=== PATIENT | female | born 1955 | race Caucasian/White ===

== ENCOUNTER 2023-01-07 23:58 | Inpatient (IN) | payer MEDICARE, MEDICAID, SELFPAY ==
[2023-01-08 00:40] VITALS: BP 160/72; PULSE 79; RESP 18; TEMP 36.3; O2SAT 99
[2023-01-08 01:27] VITALS: BMI 22.3
--- NOTE | 2023-01-08 01:28 | PC.ADMIT ---
PT is a female admitted to on CV from [place] at midnight due to insomnia, anxiety, and hallucinations. PT uncooperative and initially unwilling to sign CV, PT eventually signed CV but did cross out some words on the form. PT states,' I am not mentally ill.' 'I am not taking any medications.' PT is reported to have not taken her risperidone for about a year. Per report PT presented with paranoia stating that the FBI is out to get her. She is reported to have hallucinations of crying babies and other loud sounds. PT currently denies SI/HI/AH/VH. PT states she feels safe on unit. PT currently has a therapist., but no psychiatrist. PT complains of somatic symptoms, such as cough. PT is declining an EKG at this time. PT refused to sign legals and do a safety tool at this time. PT is on 15 minute safety checks and treatment plan started.
[2023-01-08 08:00] VITALS: BP 115/68; PULSE 90; RESP 18; TEMP 36; O2SAT 96
--- NOTE | 2023-01-08 10:41 | HO.PSYADMNOT ---
HPI Date of Service: 01/08/23 Chief Complaint: F29 unspecified psychosis Sources of Information: patient interviewed, chart reviewed and crisis/core team assessment reviewed HPI Subjective Notes: Baron Warning and Conditional Voluntary Narrative: Patient is a 67-year-old female with history of schizophrenia, history of PE who presents after her brother took patient to ED for worsening paranoid delusions and AVH in the face of increased psychosocial stressors including her father's recent . Patient was hospitalized 10 years ago and started on Risperdal and has been functioning well, living on her own in the community since then; she came off Risperdal about a year and a half ago and continued to remain stable. However soon after her father , patient started becoming paranoid and developed AVH; told ED providers that the FBI was after her, complaining of demon attacks, demons from they apartment complex knocking on her windows and doors, coming into her home at night and flashing lights; patient ended up going to a hotel to stay because she was scared; says demons were demanding she leave her apartment and saying things like you bitch.... Going to rape you... Be quiet... Patient reported to the ED that she woke up and her house and found her apartment in disarray with broken wine glasses and dishes so she called her brother who called 911. Patient's brother reported to emergency room that the housing authority also called him as they were concerned about her behavior. Patient feels that she is fine and wants to be discharged home. She did not want to discuss the conversations that she had with ED provider or discuss her reports of AH or paranoid delusions. Patient says she used to be on Risperdal as a mood stabilizer but that it caused tardive dyskinesia, that it made her feet move all around and caused her to grind her teeth. She said she came off it about a year and a half ago and she has been fine since. She says she lives alone in her own apartment; she has someone do her shopping but otherwise cooks for herself, drives herself to local appointments, manages her own finances. Patient does not want medication. Patient's sister called dialysis social worker and reported that she has been recently very dysregulated, talking about demons and that these are the same behaviors that resulted in her psychiatric admission 10 years ago, which resulted in 10 month stay at [facility] in [place] Since patient was currently presenting as organized, Dog Food Dough Mixer discussed the possibility of discharge if patient were willing to get back on medication and consent to having team call her brother for collateral and a ride to a safe location; patient refused. Later on, patient was irate that she was not being discharged saying that administrative underwriter had told her she would be discharged today; she was unable to accurately recount the details of the earlier conversation and insisted that administrative underwriter was lying. 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 apartment Supportive family Father recently 12/11/2022 Substance History: denies Trauma History: Deferred Diagnostics Vital Signs (24Hr): Vital Signs - 24 hr 01/08/23 00:40 01/08/23 08:00 Temperature 97.4 F 96.8 F Pulse Rate 79 90 Respiratory Rate 18 18 Blood Pressure 160/72 H 115/68 Pulse Oximetry 99 96 Oxygen Delivery Method Room Air Room Air BMI result Body Mass Index 22.3 Meds/Allergies Meds Home Medications Medication Instructions Recorded Confirmed Type lorazepam 0.5 mg tablet (Ativan) 0.5 mg PO BID PRN Anxiety 01/08/23 01/08/23 History olanzapine 5 mg disintegrating 5 mg PO BID 01/08/23 01/08/23 History tablet Allergies Allergies Allergy/AdvReac Type Severity Reaction Status Date / Time amoxicillin Allergy Unknown Verified 01/08/23 03:36 codeine Allergy Unknown Verified 01/08/23 03:36 diphenhydramine Allergy Unknown Verified 01/08/23 03:36 [From Benadryl] Mental Status Exam Mental Status Exam Narrative: Pt is alert and oriented; behavior is irritable but cooperative; patient is not in distress; dressed in casual attire, well groomed; mood is described as irritable and affect congruent; eye contact appropriate; Speech is normal rate, volume and prosody and not pressured; no psychomotor agitation/retardation present; thought process is organized and goal directed; Thought content is on discharge; otherwise pertinent to relevant topics; did not express any paranoid, delusional thinking; denies any SI/HI. Denies AVH. Patients insight and judgment are impaired, but not sure to what degree. Assessment & Plan Assessment & Plan (1) Schizophrenia: Status: Acute Code(s): F20.9 - Schizophrenia, unspecified Plan Patient is a 67-year-old female with history of schizophrenia, history of PE (2019) who presents after her brother took patient to ED for worsening paranoid delusions and AVH in the face of increased psychosocial stressors including her father's recent . Impression: pt has hx of psychotic disorder and [facility]; however, she's been stable for 10 years on Risperdal (and possibly remained so after she reportedly discontinued it a year or so ago). It seems that the emotional stress of her fathers has triggered return of psychotic symptoms. ED provider and collateral from sister report that patient for past weeks and days patient has been dysregulated by paranoid delusions and AH which are interfering in her life. However, currently on the unit, she is presenting as organized in both speech and behavior, denying any AVH or paranoid thinking and not expressing any delusional ideation. Given patient's history, ED report, her brothers and sisters concern, and refusal to restart antipsychotic medication, will hold onto patient for now to better assess her safety and ability to function in the community. Plan: CV; patient later sign 3 day notice Eliquis 2.5 mg b.i.d., home medication; patient told administrative underwriter that she is indeed on this because she had lung issue Denies that she is on omeprazole or any other medication; does not want to discuss her medical history Will need to gather collateral to assess patient's safety Reviewed labs from [place] ED: CBC, lytes, BUN/creatinine, calcium, TSH WNL Negative COVID UA with elevated leukocyte Estrace however negative nitrate; no report of urinary symptoms; refused to have admission physical Patient educated on: diagnosis and medication risk/benefits Informed Consent: does not understand Reason for continued inpatient stay Substantial Risk for: inability to function and rapid decompensation Statement Statement: I have reviewed the history and physical and performed a pertinent examination on my patient. No changes have occurred unless specified. If the History and Physical was not performed prior to admission, the Hospitalist's service will be consulted for completing the admission physical. Time Spent With Patient Time: Total time managing care of this patient today ____ minutes.
--- NOTE | 2023-01-08 13:26 | PM.EVENT ---
Event Note Date of Service: 01/08/23 Event Note: 67 yo F admitted to . Medical consult requested for routine medical H&P as the patient is transferred from outside facility. Pt seen ambulating in the hallway. Introduced myself and my role in her care. The patient states that she has had a recent medical visit and is not interested in speaking with me at this time because its not important. Please re-consult should things change. Time Spent With Patient Time: Total time managing care of this patient today ____ minutes.
--- NOTE | 2023-01-08 18:34 | PC.NURSE ---
Patient given urine collection container.
[2023-01-08] MEDS: LORazepam 1 MG TABLET PO (19:02)
[2023-01-08 20:05] VITALS: BP 129/69; PULSE 85; TEMP 36.6; O2SAT 98
--- NOTE | 2023-01-08 23:03 | PC.NURSE ---
Patient refused Apixiban and Risperdal at . She said she doesn't need to take them. She also refused to provide a urine specimen, because she provided one at [facility] yesterday.
[2023-01-09 09:00] VITALS: BP 120/85; PULSE 76; RESP 16; TEMP 36.3; O2SAT 96
[2023-01-09 15:55] VITALS: BP 139/67; PULSE 71; TEMP 36.3
--- NOTE | 2023-01-09 17:28 | P.PNPSI_ITS ---
Subjective Subjective Date of Service: 01/09/23 Reason For Visit: F29 unspecified psychosis Interim History: Met with patient; discussed with team Patient irritable, demanding to be discharged. She says she does not have a mental illness...does not have a psychiatric illness and she does not need medication... Marriage And Family Teacher referenced comments she made to staff at the [facility] however patient said that that is all lies, she never said that and that it is untrue. She says she was never in a state psychiatric hospital but was only in a hospital for a medical reason the details of which is none of this movie writer's business... Patient continues to insist that movie writer promised her discharge yesterday and is unable to tolerate any explanation otherwise. Patient says she does not want to say anymore but wants an ip attorney. -Patient refused Eliquis. Marriage And Family Teacher explained to patient that her outpatient provider Dr. Sherri Briones's call the unit, spoke with movie writer and communicated that patient is supposed to remain on Eliquis to avoid further blood clots/PE (patient has history of pulmonary embolisms 2019). Patient said that she does not accept this and she will have to hear from her own doctor. -gave patient phone number for enquiring ip attorney; social worker psychiatric also called amado pascual enquiring about expediting patient has access to an ip attorney Patient has a 3 day notice wanting discharge. In order to assess patient's safety and ability to return to the community, movie writer obtained collateral from patient's sister Danielle, who knows patient is on the psych unit at [facility] and called the social worker psychiatric yesterday to provide information. Marriage And Family Teacher did not give out any information. Danielle reports that 10 years ago patient severely decompensated and threatened to kill her and their parents, which resulted in [facility]. Patient was started on Risperdal and afterwards did quite well however was never able to work again and in fact has not been working since the , on disability instead. Danielle reports that they have been concerned about patient for several months, feeling that she's been decompensated little by little and that she is exhibiting the very same behaviors that led to her hospitalization 10 years ago. She says that the past few weeks, patient home health aide and friend have been reaching out to sister, saying that something is willing different about patient and that she needs help, afraid she might hurt herself. Danielle reports that at their father's wake, she went to her brother's car and started screaming; she said her father was trying to pull her out of her body to join him. She corroborates with the report from [facility] it patient has been expressing paranoid delusions that satanic people, demons are after her that they are shooting a pathway to her neighbors and healing her neighbors but not her... Danielle says patient for currently calls her on the phone screaming over and over; she is insisting that she be relocated, that her sister get the government to relocate her because she is not safe in her apartment, someone is there trying to hurt her, she is hearing babies screaming... And is unable to be redirected or accept Danielle's answers. Danielle says patient was very concerned that her brother was a zombie; said the healthcare person the comes to her house was an imposter... She said that patient has been saying she plans to move in with her mother. Danielle is very fearful of this since patient threatened to kill her mother 10 years ago when she had similarly decompensated and she said that there is no way she will allow patient to live with their mother. Sister says that patient herself called 911 a few days before her brother brought her to the emergency room, telling the police that she was being attacked in her house by satanic people and that there were flashing a blue light house. Sister reports that patient frequently complains of numerous medical illnesses that are unsubstantiated by medical exam Danielle reports that her brother Parker, the one who drove her to the emergency room this past week is the healthcare proxy. Mental Status Exam Mental Status Exam Narrative: Pt is alert and oriented; behavior is irritable but cooperative; patient is not in distress; dressed in casual attire, adequately groomed; mood is described as irritable and affect congruent; eye contact appropriate; Speech is normal rate, volume and prosody and not pressured; no psychomotor agitation/retardation present; thought process is organized and goal directed; Thought content is on discharge; otherwise pertinent to relevant topics; did not express any paranoid, delusional thinking; denies any SI/HI. Denies AVH. Patients insight and judgment are impaired Diagnostics Vital Signs (24Hr): Vital Signs - 24 hr 01/08/23 20:05 01/09/23 09:00 Temperature 97.9 F 97.3 F Pulse Rate 85 76 Respiratory Rate 16 Blood Pressure 129/69 120/85 Pulse Oximetry 98 96 Oxygen Delivery Method Room Air Room Air BMI result Body Mass Index 22.3 Medications Medications Current Medications Acetaminophen (Acetaminophen 325 Mg Tablet) 650 mg PO Q6H PRN PRN Reason: Headache/Pain Mild Scale (1-3) Al Hydroxide/Mg Hydroxide (Magnesium Hydrox/Alum Hydrox 30 Ml Oral.Susp) 30 ml PO Q6H PRN PRN Reason: Heartburn/Nausea Apixaban (Apixaban 2.5 Mg Tablet) 2.5 mg PO BID MARITA Last Admin: 01/09/23 08:32 Dose: Not Given Benzocaine (Throat Lozenge, Medicated Lozenge) 1 lozenge MUCOUS MEM Q2H PRN PRN Reason: Sore Throat Lorazepam (Lorazepam 1 Mg Tablet) 1 mg PO BID PRN PRN Reason: anxiety/restlessness Last Admin: 01/08/23 19:02 Dose: 1 mg Magnesium Hydroxide (Milk Of Magnesia 30 Ml Oral.Susp) 30 ml PO DAILY PRN PRN Reason: Constipation Trazodone HCl (Trazodone Hcl 50 Mg Tablet) 50 mg PO BEDTIME MRX1 PRN PRN Reason: Insomnia Allergies Allergies Allergy/AdvReac Type Severity Reaction Status Date / Time amoxicillin Allergy Unknown Verified 01/08/23 03:36 codeine Allergy Unknown Verified 01/08/23 03:36 diphenhydramine Allergy Unknown Verified 01/08/23 03:36 [From Benadryl] Assessment & Plan Assessment & Plan (1) Schizophrenia: Status: Acute Code(s): F20.9 - Schizophrenia, unspecified Plan Patient is a 67-year-old female with history of schizophrenia, history of PE (2019) who presents after her brother took patient to ED for worsening paranoid delusions and AVH in the face of increased psychosocial stressors including her father's recent . Impression: pt has hx of psychotic disorder and admission to [facility]; however, she's been stable for 10 years on Risperdal (and possibly remained so after she reportedly discontinued it a year or so ago). It seems that the emotional stress of her fathers has triggered return of psychotic symptoms. ED provider and collateral from sister report that patient for past weeks and days patient has been dysregulated by paranoid delusions and AH which are interfering in her life. However, currently on the unit, she is presenting as organized in both speech and behavior, denying any AVH or paranoid thinking and not expressing any delusional ideation. Given patient's history, ED report, her brothers and sisters concern, and refusal to restart antipsychotic medication, will hold onto patient for now to better assess her safety and ability to function in the community. Hospital course: 01/09 remains without any insight, is irritable and wants discharge; she denies that she ever told ED staff anything about AVH, paranoid thoughts, demons; denies that any of the events reported by ED staff or sister are true. Says she does not have any history psychiatric illness. Patient refused Eliquis Denies that she is on omeprazole or any other medication; does not want to discuss her medical history Plan: 3 day notice Continue Eliquis 2.5 mg b.i.d., movie writer contacted patient's outpatient prescriber Dr. Nelda Rodriguez [employer] who communicated to movie writer that patient is supposed to remain on Eliquis Will need to gather collateral to assess patient's safety Reviewed labs from [facility]: CBC, lytes, BUN/creatinine, calcium, TSH WNL Negative COVID UA with elevated leukocyte Estrace however negative nitrate; no report of urinary symptoms; refused to have admission physical COLLATERAL: Patient has a 3 day notice wanting discharge. In order to assess patient's safety and ability to return to the community, movie writer obtained collateral from patient's sister Danielle, who knows patient is on the psych unit at [facility] and called the social worker psychiatric yesterday to provide information. Marriage And Family Teacher did not give out any information. Danielle reports that 10 years ago patient severely decompensated and threatened to kill her and their parents, which resulted in psychiatric hospitalization at a [facility]. Patient was started on Risperdal and afterwards did quite well however was never able to work again and in fact has not been working since the , on disability instead. Danielle reports that they have been concerned about patient for several months, feeling that she's been decompensated little by little and that she is exhibiting the very same behaviors that led to her hospitalization 10 years ago. She says that the past few weeks, patient home health aide and friend have been reaching out to sister, saying that something is willing different about patient and that she needs help, afraid she might hurt herself. Danielle reports that at their father's wake, she went to her brother's car and started screaming; she said her father was trying to pull her out of her body to join him. She corroborates with the report from [facility] it patient has been expressing paranoid delusions that satanic people, demons are after her that they are shooting a pathway to her neighbors and healing her neighbors but not her... Danielle says patient for currently calls her on the phone screaming over and over; she is insisting that she be relocated, that her sister get the government to relocate her because she is not safe in her apartment, someone is there trying to hurt her, she is hearing babies screaming... And is unable to be redirected or accept Danielle's answers. Danielle says patient was very concerned that her brother was a zombie; said the healthcare person the comes to her house was an imposter... She said that patient has been saying she plans to move in with her mother. Danielle is very fearful of this since patient threatened to kill her mother 10 years ago when she had similarly decompensated and she said that there is no way she will allow patient to live with their mother. Danielle reports that her brother Parker, the one who drove her to the emergency room this past week is the healthcare proxy. Patient educated on: diagnosis and medication risk/benefits Informed Consent: does not understand and further education needed Reason for continued inpatient stay Substantial Risk for: inability to function Time Spent With Patient Time: Total time managing care of this patient today ____ minutes.
[2023-01-09] MEDS: LORazepam 1 MG TABLET PO (19:58)
[2023-01-10 08:35] VITALS: BP 119/69; PULSE 73; RESP 18; O2SAT 100
--- NOTE | 2023-01-10 10:02 | HO.PSYCHPN ---
Subjective Subjective Date of Service: 01/10/23 Reason For Visit: F29 unspecified psychosis Interim History: Met with patient; discussed with team No change in patient's presentation and she continues to demand discharge. However, she was willing to sit down and shared with junior copywriter her version of events prior to this admission. Patient said that her neck was hurting and she was choking and wanted to go to the emergency room; thus her brother brought her there. She said she wanted an x-ray but none was taken and the next thing she knew she went to [facility] [likely behavioral health pod in the ED]. patient said she talked to a social service manager named Tabitha and shared what is been going on with her self over the past year. She said another staff came in and told her that you are here because you were threatening babies... which she denied. She said this same staff person came in the next day to talk with her and she question him about his assertion that she was threatening babies... but on this day, patient reports he said that he never said that; patient believes that he was purposely lying. Patient said that she then talk to a psychiatrist whom she said was not really a psychiatrist... She said for no reason at all she was given a Haldol injection into her leg and denies that she was anything other than calm. She said the next thing she knew, she was being transported to [facility] for admission. Patient asked junior copywriter to explain what some of the concerns were regarding her safety in the community. Landscaping And Groundskeeping Laborer shared again her family's and ED provider's report that she was feeling very threatened by demons which resulted in her leaving her apartment to go to a hotel. Patient denies that she has ever been worried about demons or spirits of any kind and that she never said any of those things. She acknowledged she went to a hotel but says it was because there were chemicals coming into her apartment from the apartment below causing a chemical smell which she wanted to avoid. She says upon return the chemical smell was gone. Patient's sister had called and given information to team. Patient however said she does not believe that anyone on her team ever talk to her sister and that junior copywriter is lying about it. That said, junior copywriter had also mentioned that her sister was concerned because her current behaviors are similar to the ones she was demonstrating 10 years ago when she was admitted to the [facility]. Patient again said that that admission had nothing to due with a psychiatric illness but that what happened 10 years ago should have nothing to do with what is going on now. Landscaping And Groundskeeping Laborer again broached the topic of Eliquis; patient continued to refuse to take it saying she did not trust this junior copywriter had actually talked to staff at her outpatient clinic regarding this medication. Landscaping And Groundskeeping Laborer expressed concern that she has been off his medication, concern for DVTs and potentially PE which she has had the past. Landscaping And Groundskeeping Laborer asked patient several times if she herself would be willing to call her outpatient provider and inquire on her own, whether not she should continue taking it. Patient said the script was never renewed so she assumed she was not supposed to continue taking it and refuse to call the clinic. Landscaping And Groundskeeping Laborer had reiterated that talking with junior copywriter is totally voluntary which patient said I know... She then asked if junior copywriter is going to discharge her today and when told no, patient said she is not saying any more and that junior copywriter can talk to her associate attorney. Mental Status Exam Mental Status Exam Narrative: Pt is alert and oriented; behavior is irritable but cooperative; patient is not in distress; dressed in casual attire, adequately groomed; mood is described as irritable and affect congruent; eye contact appropriate; Speech is normal rate, volume and prosody and not pressured; no psychomotor agitation/retardation present; thought process is organized and goal directed; Thought content is on discharge; otherwise pertinent to relevant topics; did not express any paranoid, delusional thinking; denies any SI/HI. Denies AVH. Patients insight and judgment are impaired Diagnostics Vital Signs (24Hr): Vital Signs - 24 hr 01/09/23 15:55 01/10/23 08:35 Temperature 97.3 F Pulse Rate 71 73 Respiratory Rate 18 Blood Pressure 139/67 119/69 Pulse Oximetry 100 BMI result Body Mass Index 22.3 Medications Medications Current Medications Acetaminophen (Acetaminophen 325 Mg Tablet) 650 mg PO Q6H PRN PRN Reason: Headache/Pain Mild Scale (1-3) Al Hydroxide/Mg Hydroxide (Magnesium Hydrox/Alum Hydrox 30 Ml Oral.Susp) 30 ml PO Q6H PRN PRN Reason: Heartburn/Nausea Apixaban (Apixaban 2.5 Mg Tablet) 2.5 mg PO BID MARITA Last Admin: 01/10/23 08:42 Dose: Not Given Benzocaine (Throat Lozenge, Medicated Lozenge) 1 lozenge MUCOUS MEM Q2H PRN PRN Reason: Sore Throat Lorazepam (Lorazepam 1 Mg Tablet) 1 mg PO BID PRN PRN Reason: anxiety/restlessness Last Admin: 01/09/23 19:58 Dose: 1 mg Magnesium Hydroxide (Milk Of Magnesia 30 Ml Oral.Susp) 30 ml PO DAILY PRN PRN Reason: Constipation Trazodone HCl (Trazodone Hcl 50 Mg Tablet) 50 mg PO BEDTIME MRX1 PRN PRN Reason: Insomnia Allergies Allergies Allergy/AdvReac Type Severity Reaction Status Date / Time amoxicillin Allergy Unknown Verified 01/08/23 03:36 codeine Allergy Unknown Verified 01/08/23 03:36 diphenhydramine Allergy Unknown Verified 01/08/23 03:36 [From Yoselyn] Assessment & Plan Assessment & Plan (1) Schizophrenia: Status: Acute Code(s): F20.9 - Schizophrenia, unspecified Plan HPI: Patient is a 67-year-old female with history of schizophrenia, history of PE (2019) who presents after her brother took patient to ED for worsening paranoid delusions and AVH in the face of increased psychosocial stressors including her father's recent . Impression: pt has hx of psychotic disorder and admission to [facility]; however, she's been stable for 10 years on Risperdal (and possibly remained so after she reportedly discontinued it a year or so ago). It seems that the emotional stress of her fathers has triggered return of psychotic symptoms. ED provider and collateral from sister report that patient for past weeks and days patient has been dysregulated by paranoid delusions and AH which are interfering in her life. However, currently on the unit, she is presenting as organized in both speech and behavior, denying any AVH or paranoid thinking and not expressing any delusional ideation. Given patient's history, ED report, her brothers and sisters concern, and refusal to restart antipsychotic medication, will hold onto patient for now to better assess her safety and ability to function in the community. -Reviewed labs from [facility]: CBC, lytes, BUN/creatinine, calcium, TSH WNL; Negative COVID; UA with elevated leukocyte Estrace however negative nitrate; no report of urinary symptoms; refused to have admission physical Hospital course: 01/09 remains without any insight, is irritable and wants discharge; she denies that she ever told ED staff anything about AVH, paranoid thoughts, demons; denies that any of the events reported by ED staff or sister are true. Says she does not have any history psychiatric illness. Patient refused Eliquis Denies that she is on omeprazole or any other medication; does not want to discuss her medical history 01/10 no change in presentation; remains without insight; denies all collateral reports. Refusing Eliquis despite junior copywriter's concern explanation of risks of not taking Eliquis Plan: -3 day notice -q15 min checks -Continue Eliquis 2.5 mg b.i.d., junior copywriter contacted patient's outpatient prescriber Dr. Nelda Rodriguez [facility] who communicated to junior copywriter that patient is supposed to remain on Eliquis -pt adamantly refuses antipsychotic so none ordered to avoid further irritating patient -will contact HCP (brother Parker) to assess for safety; likely to invoke HCP as patient is currently making unsafe decisions, such as refusing Eliquis as patient is reportedly suffering from paranoid delusions and subsequently dysregulated in the community; patient's sister said these are the exact behaviors that patient exhibited when she was committed 10 years ago, during which time she made threats to kill her sister and her parents. Patient told sister (and this junior copywriter) that she was planning to go stay at her mother's; sister is very afraid for their mothers safety and said if patient is discharged she will immediately pursue a restraining order COLLATERAL: Patient has a 3 day notice wanting discharge. In order to assess patient's safety and ability to return to the community, junior copywriter obtained collateral from patient's sister Danielle, who knows patient is on the psych unit at [facility] and called the social service manager yesterday to provide information. Landscaping And Groundskeeping Laborer did not give out any information. Danielle reports that 10 years ago patient severely decompensated and threatened to kill her and their parents, which resulted in psychiatric hospitalization at a [facility] hospital. Patient was started on Risperdal and afterwards did quite well however was never able to work again and in fact has not been working since the , on disability instead. Danielle reports that they have been concerned about patient for several months, feeling that she's been decompensated little by little and that she is exhibiting the very same behaviors that led to her hospitalization 10 years ago. She says that the past few weeks, patient home health aide and friend have been reaching out to sister, saying that something is willing different about patient and that she needs help, afraid she might hurt herself. Danielle reports that at their father's wake, she went to her brother's car and started screaming; she said her father was trying to pull her out of her body to join him. She corroborates with the report from [facility] it patient has been expressing paranoid delusions that satanic people, demons are after her that they are shooting a pathway to her neighbors and healing her neighbors but not her... Danielle says patient for currently calls her on the phone screaming over and over; she is insisting that she be relocated, that her sister get the government to relocate her because she is not safe in her apartment, someone is there trying to hurt her, she is hearing babies screaming... And is unable to be redirected or accept Danielle's answers. Danielle says patient was very concerned that her brother was a zombie; said the healthcare person the comes to her house was an imposter... She said that patient has been saying she plans to move in with her mother. Danielle is very fearful of this since patient threatened to kill her mother 10 years ago when she had similarly decompensated and she said that there is no way she will allow patient to live with their mother. Danielle reports that her brother Parker, the one who drove her to the emergency room this past week is the healthcare proxy. Patient educated on: diagnosis, medication risk/benefits and medical condition Informed Consent: does not understand Reason for continued inpatient stay Substantial Risk for: harm to self and inability to function Time Spent With Patient Time: Total time managing care of this patient today ____ minutes.
[2023-01-10 19:25] VITALS: BP 135/63; PULSE 70; TEMP 35.7
[2023-01-10] MEDS: LORazepam 1 MG TABLET PO (19:37)
[2023-01-11 08:20] VITALS: BP 123/64; PULSE 74; RESP 18; TEMP 36; O2SAT 98
--- NOTE | 2023-01-11 14:07 | PC.NURSE ---
Pt continues to refuse all care and medications from the unit, stating I am not listening to any of you here, I am only listening to what my real doctor says I need.
[2023-01-11 18:00] VITALS: RESP 16
--- NOTE | 2023-01-11 18:23 | HO.PSYCHPN ---
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 States she has her own providers and is not interested in other's consultation. Education provided regarding appointment of an trust and estates attorney. Expresses anger, tearfulness. Refusing of treatment, medicine, I have no trust in this system. Asks to be discharge. Engages well in discussion. Medication Compliance: No Side effects from medications: No Attending Groups: No Review of Systems Acute medical concerns: No Medical Review of Systems: unchanged Mental Status Exam Mental Status Exam Patient Appearance: Fatigued Patient Orientation: Person, Place, Time and Situation Level of Consciousness: Alert Patient Behavior: Talkative and Good Eye Contact Mood Description: Depressed, Hostile, Anxious and Apprehensive Affect Description: Flat Patient Cognition Impaired: No Ability to Follow Directions: Fair Speech Pattern: Spontaneous Speech Memory Description: Intact Hallucinations: None Delusions: Not Present Thought Process: Rumination Thought Content: positive for Goal Oriented, positive for Suicidal Ideation (denies) and positive for Homicidal Ideation (denies) Depressive Symptoms: Increased Irritability Judgement: Poor Diagnostics Vital Signs (24Hr): Vital Signs - 24 hr 01/10/23 19:25 01/11/23 08:20 Temperature 96.3 F L 96.8 F Pulse Rate 70 74 Respiratory Rate 18 Blood Pressure 135/63 123/64 Pulse Oximetry 98 Oxygen Delivery Method Room Air BMI result Body Mass Index 22.3 Medications Medications Current Medications Acetaminophen (Acetaminophen 325 Mg Tablet) 650 mg PO Q6H PRN PRN Reason: Headache/Pain Mild Scale (1-3) Al Hydroxide/Mg Hydroxide (Magnesium Hydrox/Alum Hydrox 30 Ml Oral.Susp) 30 ml PO Q6H PRN PRN Reason: Heartburn/Nausea Apixaban (Apixaban 2.5 Mg Tablet) 2.5 mg PO BID MARITA Last Admin: 01/11/23 08:23 Dose: Not Given Benzocaine (Throat Lozenge, Medicated Lozenge) 1 lozenge MUCOUS MEM Q2H PRN PRN Reason: Sore Throat Lorazepam (Lorazepam 1 Mg Tablet) 1 mg PO BID PRN PRN Reason: anxiety/restlessness Last Admin: 01/10/23 19:37 Dose: 1 mg Magnesium Hydroxide (Milk Of Magnesia 30 Ml Oral.Susp) 30 ml PO DAILY PRN PRN Reason: Constipation Trazodone HCl (Trazodone Hcl 50 Mg Tablet) 50 mg PO BEDTIME MRX1 PRN PRN Reason: Insomnia Allergies Allergies Allergy/AdvReac Type Severity Reaction Status Date / Time amoxicillin Allergy Unknown Verified 01/08/23 03:36 codeine Allergy Unknown Verified 01/08/23 03:36 diphenhydramine Allergy Unknown Verified 01/08/23 03:36 [From Benadryl] Assessment & Plan Assessment & Plan (1) Schizophrenia: Status: Acute Code(s): F20.9 - Schizophrenia, unspecified Plan HPI: Patient is a 67-year-old female with history of schizophrenia, history of PE (2018) who presents after her brother took patient to ED for worsening paranoid delusions and AVH in the face of increased psychosocial stressors including her father's recent . Impression: pt has hx of psychotic disorder and admission to [facility]; however, she's been stable for 10 years on Risperdal (and possibly remained so after she reportedly discontinued it a year or so ago). It seems that the emotional stress of her fathers has triggered return of psychotic symptoms. ED provider and collateral from sister report that patient for past weeks and days patient has been dysregulated by paranoid delusions and AH which are interfering in her life. However, currently on the unit, she is presenting as organized in both speech and behavior, denying any AVH or paranoid thinking and not expressing any delusional ideation. Given patient's history, ED report, her brothers and sisters concern, and refusal to restart antipsychotic medication, will hold onto patient for now to better assess her safety and ability to function in the community. -Reviewed labs from [facility]: CBC, lytes, BUN/creatinine, calcium, TSH WNL; Negative COVID; UA with elevated leukocyte Estrace however negative nitrate; no report of urinary symptoms; refused to have admission physical Hospital course: 01/09 remains without any insight, is irritable and wants discharge; she denies that she ever told ED staff anything about AVH, paranoid thoughts, demons; denies that any of the events reported by ED staff or sister are true. Says she does not have any history psychiatric illness. Patient refused Eliquis Denies that she is on omeprazole or any other medication; does not want to discuss her medical history 01/10 no change in presentation; remains without insight; denies all collateral reports. Refusing Eliquis despite real estate underwriter's concern explanation of risks of not taking Eliquis 01/11 Continue current plan of care Plan: -3 day notice -q15 min checks -Continue Eliquis 2.5 mg b.i.d., real estate underwriter contacted patient's outpatient prescriber Dr. Nelda Rodriguez [facility] who communicated to real estate underwriter that patient is supposed to remain on Eliquis -pt adamantly refuses antipsychotic so none ordered to avoid further irritating patient -will contact HCP (brother Parker) to assess for safety; likely to invoke HCP as patient is currently making unsafe decisions, such as refusing Eliquis as patient is reportedly suffering from paranoid delusions and subsequently dysregulated in the community; patient's sister said these are the exact behaviors that patient exhibited when she was committed 10 years ago, during which time she made threats to kill her sister and her parents. Patient told sister (and this real estate underwriter) that she was planning to go stay at her mother's; sister is very afraid for their mothers safety and said if patient is discharged she will immediately pursue a restraining order COLLATERAL: Patient has a 3 day notice wanting discharge. In order to assess patient's safety and ability to return to the community, real estate underwriter obtained collateral from patient's sister Danielle, who knows patient is on the psych unit at [facility] and called the social insurance specialist yesterday to provide information. High Density [employer] Laborer did not give out any information. Danielle reports that 10 years ago patient severely decompensated and threatened to kill her and their parents, which resulted in psychiatric hospitalization at a [facility] hospital. Patient was started on Risperdal and afterwards did quite well however was never able to work again and in fact has not been working since the , on disability instead. Danielle reports that they have been concerned about patient for several months, feeling that she's been decompensated little by little and that she is exhibiting the very same behaviors that led to her hospitalization 10 years ago. She says that the past few weeks, patient home health aide and friend have been reaching out to sister, saying that something is willing different about patient and that she needs help, afraid she might hurt herself. Danielle reports that at their father's wake, she went to her brother's car and started screaming; she said her father was trying to pull her out of her body to join him. She corroborates with the report from [facility] it patient has been expressing paranoid delusions that satanic people, demons are after her that they are shooting a pathway to her neighbors and healing her neighbors but not her... Danielle says patient for currently calls her on the phone screaming over and over; she is insisting that she be relocated, that her sister get the government to relocate her because she is not safe in her apartment, someone is there trying to hurt her, she is hearing babies screaming... And is unable to be redirected or accept Danielle's answers. Danielle says patient was very concerned that her brother was a zombie; said the healthcare person the comes to her house was an imposter... She said that patient has been saying she plans to move in with her mother. Danielle is very fearful of this since patient threatened to kill her mother 10 years ago when she had similarly decompensated and she said that there is no way she will allow patient to live with their mother. Danielle reports that her brother Parker, the one who drove her to the emergency room this past week is the healthcare proxy. Patient educated on: therapeutic strategies Informed Consent: further education needed Reason for continued inpatient stay Substantial Risk for: harm to self, inability to function and rapid decompensation Time Spent With Patient Time: Total time managing care of this patient today ____ minutes.
[2023-01-11] MEDS: LORazepam 1 MG TABLET PO (22:01)
[2023-01-12 08:15] VITALS: BP 134/61; PULSE 76; RESP 18; TEMP 36.4; O2SAT 99
--- NOTE | 2023-01-12 08:54 | HO.PSYCHPN ---
Subjective Subjective Date of Service: 01/12/23 Reason For Visit: F29 unspecified psychosis Interim History: Pt seen and discussed with team. No dangerous behaviors noted, no reports of issues pt would like addressed except discharge. Non-med compliant. Intermittent Lorazepam prn, mostly on evenings. Spends time looking out the window to the front courtyard. Social intermittently with peers and team. Medication Compliance: Intermittent Side effects from medications: No Attending Groups: No Review of Systems Acute medical concerns: No Medical Review of Systems: unchanged Mental Status Exam Mental Status Exam Patient Appearance: Fatigued Patient Orientation: Person, Place, Time and Situation Level of Consciousness: Alert Patient Behavior: Talkative and Good Eye Contact Mood Description: Depressed, Hostile, Anxious and Apprehensive Affect Description: Flat Patient Cognition Impaired: No Ability to Follow Directions: Fair Speech Pattern: Spontaneous Speech Memory Description: Intact Hallucinations: None Delusions: Not Present Thought Process: Rumination Thought Content: positive for Goal Oriented, positive for Suicidal Ideation (denies) and positive for Homicidal Ideation (denies) Depressive Symptoms: Increased Irritability Judgement: Poor Diagnostics Vital Signs (24Hr): Vital Signs - 24 hr 01/11/23 18:00 01/12/23 08:15 Temperature 97.6 F Pulse Rate 76 Respiratory Rate 16 18 Blood Pressure 134/61 Pulse Oximetry 99 Oxygen Delivery Method Room Air BMI result Body Mass Index 22.3 Medications Medications Current Medications Acetaminophen (Acetaminophen 325 Mg Tablet) 650 mg PO Q6H PRN PRN Reason: Headache/Pain Mild Scale (1-3) Al Hydroxide/Mg Hydroxide (Magnesium Hydrox/Alum Hydrox 30 Ml Oral.Susp) 30 ml PO Q6H PRN PRN Reason: Heartburn/Nausea Apixaban (Apixaban 2.5 Mg Tablet) 2.5 mg PO BID [facility] Last Admin: 01/12/23 07:53 Dose: Not Given Benzocaine (Throat Lozenge, Medicated Lozenge) 1 lozenge MUCOUS MEM Q2H PRN PRN Reason: Sore Throat Lorazepam (Lorazepam 1 Mg Tablet) 1 mg PO BID PRN PRN Reason: anxiety/restlessness Last Admin: 01/11/23 22:01 Dose: 1 mg Magnesium Hydroxide (Milk Of Magnesia 30 Ml Oral.Susp) 30 ml PO DAILY PRN PRN Reason: Constipation Trazodone HCl (Trazodone Hcl 50 Mg Tablet) 50 mg PO BEDTIME MRX1 PRN PRN Reason: Insomnia Allergies Allergies Allergy/AdvReac Type Severity Reaction Status Date / Time amoxicillin Allergy Unknown Verified 01/08/23 03:36 codeine Allergy Unknown Verified 01/08/23 03:36 diphenhydramine Allergy Unknown Verified 01/08/23 03:36 [From Benadryl] Assessment & Plan Assessment & Plan (1) Schizophrenia: Status: Acute Code(s): F20.9 - Schizophrenia, unspecified Plan HPI: Patient is a 67-year-old female with history of schizophrenia, history of PE (2019) who presents after her brother took patient to ED for worsening paranoid delusions and AVH in the face of increased psychosocial stressors including her father's recent . Impression: pt has hx of psychotic disorder and admission to [facility]; however, she's been stable for 10 years on Risperdal (and possibly remained so after she reportedly discontinued it a year or so ago). It seems that the emotional stress of her fathers has triggered return of psychotic symptoms. ED provider and collateral from sister report that patient for past weeks and days patient has been dysregulated by paranoid delusions and AH which are interfering in her life. However, currently on the unit, she is presenting as organized in both speech and behavior, denying any AVH or paranoid thinking and not expressing any delusional ideation. Given patient's history, ED report, her brothers and sisters concern, and refusal to restart antipsychotic medication, will hold onto patient for now to better assess her safety and ability to function in the community. -Reviewed labs from [facility]: CBC, lytes, BUN/creatinine, calcium, TSH WNL; Negative COVID; UA with elevated leukocyte Estrace however negative nitrate; no report of urinary symptoms; refused to have admission physical Hospital course: 01/09 remains without any insight, is irritable and wants discharge; she denies that she ever told ED staff anything about AVH, paranoid thoughts, demons; denies that any of the events reported by ED staff or sister are true. Says she does not have any history psychiatric illness. Patient refused Eliquis Denies that she is on omeprazole or any other medication; does not want to discuss her medical history 01/10 no change in presentation; remains without insight; denies all collateral reports. Refusing Eliquis despite technical proposal writer's concern explanation of risks of not taking Eliquis 01/12/23 continue current plan of care. Plan: -3 day notice -q15 min checks -Continue Eliquis 2.5 mg b.i.d., technical proposal writer contacted patient's outpatient prescriber [facility] who communicated to technical proposal writer that patient is supposed to remain on Eliquis -pt adamantly refuses antipsychotic so none ordered to avoid further irritating patient -will contact HCP (brother Parker) to assess for safety; likely to invoke HCP as patient is currently making unsafe decisions, such as refusing Eliquis as patient is reportedly suffering from paranoid delusions and subsequently dysregulated in the community; patient's sister said these are the exact behaviors that patient exhibited when she was committed 10 years ago, during which time she made threats to kill her sister and her parents. Patient told sister (and this technical proposal writer) that she was planning to go stay at her mother's; sister is very afraid for their mothers safety and said if patient is discharged she will immediately pursue a restraining order COLLATERAL: Patient has a 3 day notice wanting discharge. In order to assess patient's safety and ability to return to the community, technical proposal writer obtained collateral from patient's sister Danielle, who knows patient is on the psych unit at [facility] and called the social work case manager yesterday to provide information. Sanitarian Inspector did not give out any information. Danielle reports that 10 years ago patient severely decompensated and threatened to kill her and their parents, which resulted in psychiatric hospitalization at a [facility] hospital. Patient was started on Risperdal and afterwards did quite well however was never able to work again and in fact has not been working since the , on disability instead. Danielle reports that they have been concerned about patient for several months, feeling that she's been decompensated little by little and that she is exhibiting the very same behaviors that led to her hospitalization 10 years ago. She says that the past few weeks, patient home health aide and friend have been reaching out to sister, saying that something is willing different about patient and that she needs help, afraid she might hurt herself. Danielle reports that at their father's wake, she went to her brother's car and started screaming; she said her father was trying to pull her out of her body to join him. She corroborates with the report from [facility] it patient has been expressing paranoid delusions that satanic people, demons are after her that they are shooting a pathway to her neighbors and healing her neighbors but not her... Danielle says patient for currently calls her on the phone screaming over and over; she is insisting that she be relocated, that her sister get the government to relocate her because she is not safe in her apartment, someone is there trying to hurt her, she is hearing babies screaming... And is unable to be redirected or accept Danielle's answers. Danielle says patient was very concerned that her brother was a zombie; said the healthcare person the comes to her house was an imposter... She said that patient has been saying she plans to move in with her mother. Danielle is very fearful of this since patient threatened to kill her mother 10 years ago when she had similarly decompensated and she said that there is no way she will allow patient to live with their mother. Danielle reports that her brother Parker, the one who drove her to the emergency room this past week is the healthcare proxy. Reason for continued inpatient stay Substantial Risk for: rapid decompensation Time Spent With Patient Time: Total time managing care of this patient today ____ minutes.
[2023-01-12 18:00] VITALS: BP 128/80; PULSE 80; RESP 18; TEMP 36.9; O2SAT 100
[2023-01-12] MEDS: LORazepam 1 MG TABLET PO (20:23)
[2023-01-13 08:05] VITALS: BP 138/64; PULSE 58; RESP 18; TEMP 36; O2SAT 99
--- NOTE | 2023-01-13 09:44 | HO.PSYCHPN ---
Subjective Subjective Date of Service: 01/13/23 Reason For Visit: F29 unspecified psychosis Interim History: Met with patient, discussed with team of note, patient reported that she went to [facility] because of neck pain, choking and swallowing issues; she says these have remained fully resolved. Patient remains adamant that none of the reports about her psychiatric illness, symptoms or her verbalization of paranoid delusional thoughts are true; she maintains that she was never psychiatrically admitted, that it had something to do with a neighbor and that she was never on psychiatric medication. Patient continues to demand discharge. She says she will either go to her friend's house are some rales but will not tell appeals writer. Patient had earlier told appeals writer she was planning to go stay at her mother's; when appeals writer asked patient said is none of your business. Patient's therapist called wanting to talk with appeals writer; appeals writer asked patient and patient said yes she wants this appeals writer to talk with her therapist Neva. Patient continues to refuse all medication including Eliquis. Laboratory Clerk spoke with Neva, outpatient therapist who has known her since 2011 after she was discharged from [facility]. She reports that patient has never acknowledged any psychiatric illness of any kind. Overall these years patient has remained stable and able to care for self in the community. The sometime patient would make a delusional comment about being electronically scanned daily, and would have some would seem to be somatic physical complaints; otherwise no psychotic symptoms present until now. Therapist thinks patient was taking her medications until about a few months ago. She agrees that the of her father and emotional fall out has worsened symptoms. Therapist has concerns about patient recovering and further decompensating if she remains off medications and said she would recommend that patient get back on medications. Therapist told appeals writer that patient complained to her that appeals writer and staff for lying to her and accusing her of hurting baby's. of note, patient reported that she went to [facility] because of neck pain, choking and swallowing issues; she says these have remained fully resolve (At ED Patient reported she brought up her somatic complaints her doctors and that she had a recent endoscopy, stress test, swallow test and all results unremarkable). Last week Patient told appeals writer that her brother Parker was her healthcare proxy; patient's sister Danielle confirm this. Laboratory Clerk called Parker on 01/10 in order to collect information, collateral to further assess if patient is safe to return to the community since she remains adamant about being discharged. Patient's brother her expressed that he is very concerned and feels that if she is not treated, getting back on medications she will end up quickly worsening. He said that 10 years ago following [facility] admission, she emerged doing much better and remained so on medication for most of the next decade. Parker thinks patient may have been on a community Adan. He only recently learned that she stopped taking her medications about a year ago. He agrees with Danielle that patient has slowly been decompensating over the past few months. Over the past few weeks, she has been expressing paranoid delusions saying that she is being scanned by electronic scanners... And making comments about satanic rituals going on in her apartment. Reports she has numerous body complaints about her body parts not functioning though she is always found to be in good medical condition; saying that her skin is black... She called [employer] (who oversees her apartment) and complained that there was something bad in her apartment, de Karla activities, blue light coming from the haas, something trying to imprint on her, something about hurting baby's... He said [employer] came over to inspect but nothing was found. Her brother reports that this past week, she also called 911 saying she was being attacked demonically, satanic rituals in her apartment; the police came up but of again found nothing. Parker says he has the police report and explained to his sister that she is not well, that she needs medication however patient denied there was anything wrong, even denied that she had called 911... Patient asked Parker to bring her to the hospital for neck pain during which time patient was placed Section 12. Patient's brother reiterates that if she is not treated with medication he is afraid she will continue to get worse; says she has been saying she does not want to go back to her apartment, but wants to live with their mother, which Parker says is not an option. Diagnostics Vital Signs (24Hr): Vital Signs - 24 hr 01/12/23 18:00 01/13/23 08:05 Temperature 98.5 F 96.8 F Pulse Rate 80 58 Respiratory Rate 18 18 Blood Pressure 128/80 138/64 Pulse Oximetry 100 99 Oxygen Delivery Method Room Air Room Air BMI result Body Mass Index 22.3 Medications Medications Current Medications Acetaminophen (Acetaminophen 325 Mg Tablet) 650 mg PO Q6H PRN PRN Reason: Headache/Pain Mild Scale (1-3) Al Hydroxide/Mg Hydroxide (Magnesium Hydrox/Alum Hydrox 30 Ml Oral.Susp) 30 ml PO Q6H PRN PRN Reason: Heartburn/Nausea Apixaban (Apixaban 2.5 Mg Tablet) 2.5 mg PO BID MARITA Last Admin: 01/13/23 07:46 Dose: Not Given Benzocaine (Throat Lozenge, Medicated Lozenge) 1 lozenge MUCOUS MEM Q2H PRN PRN Reason: Sore Throat Lorazepam (Lorazepam 1 Mg Tablet) 1 mg PO BID PRN PRN Reason: anxiety/restlessness Last Admin: 01/12/23 20:23 Dose: 1 mg Magnesium Hydroxide (Milk Of Magnesia 30 Ml Oral.Susp) 30 ml PO DAILY PRN PRN Reason: Constipation Trazodone HCl (Trazodone Hcl 50 Mg Tablet) 50 mg PO BEDTIME MRX1 PRN PRN Reason: Insomnia Allergies Allergies Allergy/AdvReac Type Severity Reaction Status Date / Time amoxicillin Allergy Unknown Verified 01/08/23 03:36 codeine Allergy Unknown Verified 01/08/23 03:36 diphenhydramine Allergy Unknown Verified 01/08/23 03:36 [From Yoselyn] Assessment & Plan Assessment & Plan (1) Schizophrenia: Status: Acute Code(s): F20.9 - Schizophrenia, unspecified Plan HPI: Patient is a 67-year-old female with history of schizophrenia, history of PE (2019) who presents after her brother took patient to ED for worsening paranoid delusions and AVH in the face of increased psychosocial stressors including her father's recent . In [facility] patient was vocalizing that she is worried the FBI is out to get her; reported to emergency room staff she was seeing demons and spirits, feeling unsafe in her apartment due to a demon attack, seen flashing lights? and that the demons were demanding to leave her apartment and that she feels afraid in her apartment ? she also said that she is declining in health and unable to eat or sleep. At 1 point patient was agitated and got Haldol IM. Told ED provider she stopped Risperdal because she was feeling foggy; at a different time she told staff it was making her legs restless. Impression: pt has hx of psychotic disorder and admission to [facility]; however, she's been stable for 10 years on Risperdal (and possibly remained so after she reportedly discontinued it a year or so ago). It seems that the emotional stress of her fathers has triggered return of psychotic symptoms. ED provider and collateral from sister report that patient for past weeks and days patient has been dysregulated by paranoid delusions and AH which are interfering in her life. However, currently on the unit, she is presenting as organized in both speech and behavior, denying any AVH or paranoid thinking and not expressing any delusional ideation. Given patient's history, ED report, her brothers and sisters concern, and refusal to restart antipsychotic medication, will hold onto patient for now to better assess her safety and ability to function in the community. -Reviewed labs from [facility]: CBC, lytes, BUN/creatinine, calcium, TSH WNL; Negative COVID; UA with elevated leukocyte Estrace however negative nitrate; no report of urinary symptoms; refused to have admission physical. of note, patient reported that she went to [facility] because of neck pain, choking and swallowing issues; she says these have remained fully resolved (At ED Patient reported she brought up her somatic complaints her doctors and that she had a recent endoscopy, stress test, swallow test all results unremarkable). Hospital course: 01/09 remains without any insight, is irritable and wants discharge; she denies that she ever told ED staff anything about AVH, paranoid thoughts, demons; denies that any of the events reported by ED staff or sister are true. Says she does not have any history psychiatric illness. Patient refused Eliquis Denies that she is on omeprazole or any other medication; does not want to discuss her medical history 01/10 no change in presentation; remains without insight; denies all collateral reports. Refusing Eliquis despite appeals writer's concern explanation of risks of not taking Eliquis 01/12/23 continue current plan of care. 01/[address] commitment. Patient continues to have psychotic symptoms and told her therapist that she is currently being accuse by this appeals writer of wanting to hurt baby's. Patient continues to have no insight. She is afraid to go back to apartment due to paranoid delusions; pt told sister (and this appeals writer) that she was planning to go stay at her mother's; sister is very afraid for their mothers safety and said if patient is discharged she will immediately pursue a restraining order; she is not taking prescribed Eliquis to prevent pulmonary embolism; patient is presenting with similar symptoms that resulted in past [facility] commitment [facility] a [facility] after she threatened to kill her mother, father and sister. Patient has demonstrated that she is able to be safe and stable in the community on medication and by all accounts, including her own, had a very nice and enjoyable life while on antipsychotic medication. There is a strong concern that patient will continue to further decompensate if she does not get back on antipsychotic medication. Plan: Petition court for involuntary commitment for patient's safety -q15 min checks -Continue Eliquis 2.5 mg b.i.d., appeals writer contacted patient's outpatient prescriber Dr. Nelda Rodriguez [facility] who communicated to appeals writer that patient is supposed to remain on Eliquis -pt adamantly refuses antipsychotic so none ordered to avoid further irritating patient -does not seem possible to invoke healthcare proxy without sign document COLLATERAL: Patient has a 3 day notice wanting discharge. In order to assess patient's safety and ability to return to the community, appeals writer obtained collateral from patient's sister Danielle, who knows patient is on the psych unit at [facility] and called the social worker clinical yesterday to provide information. Laboratory Clerk did not give out any information. Danielle reports that 10 years ago patient severely decompensated and threatened to kill her and their parents, which resulted in psychiatric [facility] a [facility]. Patient was started on Risperdal and afterwards did quite well however was never able to work again and in fact has not been working since the , on disability instead. Danielle reports that they have been concerned about patient for several months, feeling that she's been decompensated little by little and that she is exhibiting the very same behaviors that led to her hospitalization 10 years ago. She says that the past few weeks, patient home health aide and friend have been reaching out to sister, saying that something is willing different about patient and that she needs help, afraid she might hurt herself. Danielle reports that at their father's wake, she went to her brother's car and started screaming; she said her father was trying to pull her out of her body to join him. She corroborates with the report from [facility] it patient has been expressing paranoid delusions that satanic people, demons are after her that they are shooting a pathway to her neighbors and healing her neighbors but not her... Danielle says patient for currently calls her on the phone screaming over and over; she is insisting that she be relocated, that her sister get the government to relocate her because she is not safe in her apartment, someone is there trying to hurt her, she is hearing babies screaming... And is unable to be redirected or accept Danielle's answers. Danielle says patient was very concerned that her brother was a zombie; said the healthcare person the comes to her house was an imposter... She said that patient has been saying she plans to move in with her mother. Danielle is very fearful of this since patient threatened to kill her mother 10 years ago when she had similarly decompensated and she said that there is no way she will allow patient to live with their mother. Danielle reports that her brother Parker, the one who drove her to the emergency room this past week is the healthcare proxy. Patient's therapist called wanting to talk with appeals writer; appeals writer asked patient and patient said yes she wants this appeals writer to talk with her therapist Neva. Patient continues to refuse all medication including Eliquis. Laboratory Clerk spoke with Neva, outpatient therapist who has known her since 2011 after she was discharged from [facility]. She reports that patient has never acknowledged any psychiatric illness of any kind. Overall these years patient has remained stable and able to care for self in the community. The sometime patient would make a delusional comment about being electronically scanned daily, and would have some would seem to be somatic physical complaints; otherwise no psychotic symptoms present until now. Therapist thinks patient was taking her medications until about a few months ago. She agrees that the of her father and emotional fall out has worsened symptoms. Therapist has concerns about patient recovering and further decompensating if she remains off medications and said she would recommend that patient get back on medications. Therapist told appeals writer that patient complained to her that appeals writer and staff for lying to her and accusing her of hurting baby's. Last week Patient told appeals writer that her brother aPrker was her healthcare proxy; patient's sister Danielle confirm this. Laboratory Clerk called Parker on 01/10 in order to collect information, collateral to further assess if patient is safe to return to the community since she remains adamant about being discharged. Patient's brother her expressed that he is very concerned and feels that if she is not treated, getting back on medications she will end up quickly worsening. He said that 10 years ago following [facility] admission, she emerged doing much better and remained so on medication for most of the next decade. Parker thinks patient may have been on a community Adan. He only recently learned that she stopped taking her medications about a year ago. He agrees with Danielle that patient has slowly been decompensating over the past few months. Over the past few weeks, she has been expressing paranoid delusions saying that she is being scanned by electronic scanners... And making comments about satanic rituals going on in her apartment. Reports she has numerous body complaints about her body parts not functioning though she is always found to be in good medical condition; saying that her skin is black... She called [employer] (who oversees her apartment) and complained that there was something bad in her apartment, de [place] activities, blue light coming from the haas, something trying to imprint on her, something about hurting baby's... He said [employer] came over to inspect but nothing was found. Her brother reports that this past week, she also called 911 saying she was being attacked demonically, satanic rituals in her apartment; the police came up but of again found nothing. Parker says he has the police report and explained to his sister that she is not well, that she needs medication however patient denied there was anything wrong, even denied that she had called 911... Patient asked Parker to bring her to the hospital for neck pain during which time patient was placed Section 12. Patient's brother reiterates that if she is not treated with medication he is afraid she will continue to get worse; says she has been saying she does not want to go back to her apartment, but wants to live with their mother, which Herb says is not an option. Patient educated on: diagnosis and medication risk/benefits Informed Consent: does not understand Reason for continued inpatient stay Substantial Risk for: inability to function Time Spent With Patient Time: Total time managing care of this patient today ____ minutes.
[2023-01-13 18:00] VITALS: RESP 16
[2023-01-14 08:00] VITALS: BP 121/80; PULSE 64; RESP 14; TEMP 36.3; O2SAT 93
--- NOTE | 2023-01-14 08:55 | PC.NURSE ---
pt continues to refuse eliquis even with much encouragement.
--- NOTE | 2023-01-14 11:46 | HO.PSYCHPN ---
Subjective Subjective Date of Service: 01/14/23 Reason For Visit: F29 unspecified psychosis Interim History: Patient seen and discussed. Patient reports I am upset. I am out of my comfort zone. I am a very private person. I have been lied to... Remains with lack of insight into her symptoms and need for treatment. She is not taking any medications. She is pressured and anxious. She continues to say she was brought to the ED for neck pain and not for mentail health reasons. Denying any paranoid symptoms. Says people fabricated things about her. Court pending. Mental Status Exam Mental Status Exam Narrative: Pt is alert and oriented; behavior is irritable but cooperative; patient is not in distress; dressed in casual attire, adequately groomed; mood is described as irritable and affect congruent; eye contact appropriate; Speech is pressured; psychomotor restlessness. Thought process is circumstantial, evasive and perseverative. Thought content is on discharge; otherwise pertinent to relevant topics; did not express any paranoid, delusional thinking; denies any SI/HI. Denies AVH. Patients insight and judgment are impaired Patient Appearance: Fatigued Patient Orientation: Person, Place, Time and Situation Level of Consciousness: Alert Patient Behavior: Talkative and Good Eye Contact Mood Description: Depressed, Hostile, Anxious and Apprehensive Affect Description: Flat Patient Cognition Impaired: No Ability to Follow Directions: Fair Speech Pattern: Spontaneous Speech Memory Description: Intact Diagnostics Vital Signs (24Hr): Vital Signs - 24 hr 01/13/23 18:00 01/14/23 08:00 Temperature 97.4 F Pulse Rate 64 Respiratory Rate 16 14 Blood Pressure 121/80 Pulse Oximetry 93 Oxygen Delivery Method Room Air BMI result Body Mass Index 22.3 Medications Medications Current Medications Acetaminophen (Acetaminophen 325 Mg Tablet) 650 mg PO Q6H PRN PRN Reason: Headache/Pain Mild Scale (1-3) Al Hydroxide/Mg Hydroxide (Magnesium Hydrox/Alum Hydrox 30 Ml Oral.Susp) 30 ml PO Q6H PRN PRN Reason: Heartburn/Nausea Apixaban (Apixaban 2.5 Mg Tablet) 2.5 mg PO BID MARITA Last Admin: 01/14/23 08:42 Dose: Not Given Benzocaine (Throat Lozenge, Medicated Lozenge) 1 lozenge MUCOUS MEM Q2H PRN PRN Reason: Sore Throat Lorazepam (Lorazepam 1 Mg Tablet) 1 mg PO BID PRN PRN Reason: anxiety/restlessness Last Admin: 01/12/23 20:23 Dose: 1 mg Magnesium Hydroxide (Milk Of Magnesia 30 Ml Oral.Susp) 30 ml PO DAILY PRN PRN Reason: Constipation Trazodone HCl (Trazodone Hcl 50 Mg Tablet) 50 mg PO BEDTIME MRX1 PRN PRN Reason: Insomnia Allergies Allergies Allergy/AdvReac Type Severity Reaction Status Date / Time amoxicillin Allergy Unknown Verified 01/08/23 03:36 codeine Allergy Unknown Verified 01/08/23 03:36 diphenhydramine Allergy Unknown Verified 01/08/23 03:36 [From Benadryl] Assessment & Plan Assessment & Plan (1) Schizophrenia: Status: Acute Code(s): F20.9 - Schizophrenia, unspecified Plan HPI: Patient is a 67-year-old female with history of schizophrenia, history of PE (2018) who presents after her brother took patient to ED for worsening paranoid delusions and AVH in the face of increased psychosocial stressors including her father's recent . Impression: pt has hx of psychotic disorder and admission to [facility]; however, she's been stable for 10 years on Risperdal (and possibly remained so after she reportedly discontinued it a year or so ago). It seems that the emotional stress of her fathers has triggered return of psychotic symptoms. ED provider and collateral from sister report that patient for past weeks and days patient has been dysregulated by paranoid delusions and AH which are interfering in her life. However, currently on the unit, she is presenting as organized in both speech and behavior, denying any AVH or paranoid thinking and not expressing any delusional ideation. Given patient's history, ED report, her brothers and sisters concern, and refusal to restart antipsychotic medication, will hold onto patient for now to better assess her safety and ability to function in the community. -Reviewed labs from [place] ED: CBC, lytes, BUN/creatinine, calcium, TSH WNL; Negative COVID; UA with elevated leukocyte Estrace however negative nitrate; no report of urinary symptoms; refused to have admission physical Hospital course: 01/09 remains without any insight, is irritable and wants discharge; she denies that she ever told ED staff anything about AVH, paranoid thoughts, demons; denies that any of the events reported by ED staff or sister are true. Says she does not have any history psychiatric illness. Patient refused Eliquis Denies that she is on omeprazole or any other medication; does not want to discuss her medical history 01/10 no change in presentation; remains without insight; denies all collateral reports. Refusing Eliquis despite conventional underwriter's concern explanation of risks of not taking Eliquis 01/12/23 continue current plan of care. 01/14: Continue current plan. Plan: -3 day notice -q15 min checks -Continue Eliquis 2.5 mg b.i.d., conventional underwriter contacted patient's outpatient prescriber Dr. Nelda Rodriguez [facility] who communicated to conventional underwriter that patient is supposed to remain on Eliquis -pt adamantly refuses antipsychotic so none ordered to avoid further irritating patient -will contact HCP (brother Parker) to assess for safety; likely to invoke HCP as patient is currently making unsafe decisions, such as refusing Eliquis as patient is reportedly suffering from paranoid delusions and subsequently dysregulated in the community; patient's sister said these are the exact behaviors that patient exhibited when she was committed 10 years ago, during which time she made threats to kill her sister and her parents. Patient told sister (and this conventional underwriter) that she was planning to go stay at her mother's; sister is very afraid for their mothers safety and said if patient is discharged she will immediately pursue a restraining order COLLATERAL: Patient has a 3 day notice wanting discharge. In order to assess patient's safety and ability to return to the community, conventional underwriter obtained collateral from patient's sister Danielle, who knows patient is on the psych unit at [facility] and called the social security benefits interviewer yesterday to provide information. [employer] did not give out any information. Danielle reports that 10 years ago patient severely decompensated and threatened to kill her and their parents, which resulted in psychiatric hospitalization at a [facility]. Patient was started on Risperdal and afterwards did quite well however was never able to work again and in fact has not been working since the , on disability instead. Danielle reports that they have been concerned about patient for several months, feeling that she's been decompensated little by little and that she is exhibiting the very same behaviors that led to her hospitalization 10 years ago. She says that the past few weeks, patient home health aide and friend have been reaching out to sister, saying that something is willing different about patient and that she needs help, afraid she might hurt herself. Danielle reports that at their father's wake, she went to her brother's car and started screaming; she said her father was trying to pull her out of her body to join him. She corroborates with the report from [facility] it patient has been expressing paranoid delusions that satanic people, demons are after her that they are shooting a pathway to her neighbors and healing her neighbors but not her... Danielle says patient for currently calls her on the phone screaming over and over; she is insisting that she be relocated, that her sister get the government to relocate her because she is not safe in her apartment, someone is there trying to hurt her, she is hearing babies screaming... And is unable to be redirected or accept Danielle's answers. Danielle says patient was very concerned that her brother was a zombie; said the healthcare person the comes to her house was an imposter... She said that patient has been saying she plans to move in with her mother. Danielle is very fearful of this since patient threatened to kill her mother 10 years ago when she had similarly decompensated and she said that there is no way she will allow patient to live with their mother. Danielle reports that her brother Parker, the one who drove her to the emergency room this past week is the healthcare proxy. Reason for continued inpatient stay Substantial Risk for: harm to others, inability to function and rapid decompensation Time Spent With Patient Time: Total time managing care of this patient today ____ minutes.
[2023-01-14 19:45] VITALS: BP 122/54; PULSE 94; RESP 18; TEMP 36.4; O2SAT 97
[2023-01-14] MEDS: LORazepam 1 MG TABLET PO (20:06)
[2023-01-15 09:30] VITALS: BP 110/64; PULSE 73; RESP 18; TEMP 36; O2SAT 100
--- NOTE | 2023-01-15 10:09 | HO.PSYCHPN ---
Subjective Subjective Date of Service: 01/15/23 Reason For Visit: F29 unspecified psychosis Subjective Notes: Montague Warning Interim History: Met with patient; discussed with team Patient angry that she is not being discharged today. She said that her therapist said she should be discharged and that her family has no concerns at all. Patient was not open to hearing otherwise. She continues to search she has no psychiatric illness and does not need medication. Feather Mixer reiterated montague warning Mental Status Exam Mental Status Exam Narrative: Pt is alert and oriented; behavior is irritable but cooperative; patient is not in distress; dressed in hospital gown over casual attire, adequately groomed; mood is described as irritable and affect congruent; eye contact appropriate; Speech is normal rate, volume and prosody and not pressured; no psychomotor agitation/retardation present; thought process is organized and goal directed; Thought content is on discharge; otherwise pertinent to relevant topics; did not express any paranoid, delusional thinking; denies any SI/HI. Denies AVH. Patients insight and judgment are impaired Diagnostics Vital Signs (24Hr): Vital Signs - 24 hr 01/14/23 19:45 Temperature 97.5 F Pulse Rate 94 Respiratory Rate 18 Blood Pressure 122/54 L Pulse Oximetry 97 Oxygen Delivery Method Room Air BMI result Body Mass Index 22.3 Medications Medications Current Medications Acetaminophen (Acetaminophen 325 Mg Tablet) 650 mg PO Q6H PRN PRN Reason: Headache/Pain Mild Scale (1-3) Al Hydroxide/Mg Hydroxide (Magnesium Hydrox/Alum Hydrox 30 Ml Oral.Susp) 30 ml PO Q6H PRN PRN Reason: Heartburn/Nausea Apixaban (Apixaban 2.5 Mg Tablet) 2.5 mg PO BID [facility] Last Admin: 01/14/23 20:06 Dose: Not Given Benzocaine (Throat Lozenge, Medicated Lozenge) 1 lozenge MUCOUS MEM Q2H PRN PRN Reason: Sore Throat Lorazepam (Lorazepam 1 Mg Tablet) 1 mg PO BID PRN PRN Reason: anxiety/restlessness Last Admin: 01/14/23 20:06 Dose: 1 mg Magnesium Hydroxide (Milk Of Magnesia 30 Ml Oral.Susp) 30 ml PO DAILY PRN PRN Reason: Constipation Trazodone HCl (Trazodone Hcl 50 Mg Tablet) 50 mg PO BEDTIME MRX1 PRN PRN Reason: Insomnia Allergies Allergies Allergy/AdvReac Type Severity Reaction Status Date / Time amoxicillin Allergy Unknown Verified 01/08/23 03:36 codeine Allergy Unknown Verified 01/08/23 03:36 diphenhydramine Allergy Unknown Verified 01/08/23 03:36 [From Benadryl] Assessment & Plan Assessment & Plan (1) Schizophrenia: Status: Acute Code(s): F20.9 - Schizophrenia, unspecified Plan HPI: Patient is a 67-year-old female with history of schizophrenia, history of PE (2019) who presents after her brother took patient to ED for worsening paranoid delusions and AVH in the face of increased psychosocial stressors including her father's recent . In [place] ED patient was vocalizing that she is worried the FBI is out to get her; reported to emergency room staff she was seeing demons and spirits, feeling unsafe in her apartment due to a demon attack, seen flashing lights? and that the demons were demanding to leave her apartment and that she feels afraid in her apartment ? she also said that she is declining in health and unable to eat or sleep. At 1 point patient was agitated and got Haldol IM. Told ED provider she stopped Risperdal because she was feeling foggy; at a different time she told staff it was making her legs restless. Impression: pt has hx of psychotic disorder and admission to [facility]; however, she's been stable for 10 years on Risperdal (and possibly remained so after she reportedly discontinued it a year or so ago). It seems that the emotional stress of her fathers has triggered return of psychotic symptoms. ED provider and collateral from sister report that patient for past weeks and days patient has been dysregulated by paranoid delusions and AH which are interfering in her life. However, currently on the unit, she is presenting as organized in both speech and behavior, denying any AVH or paranoid thinking and not expressing any delusional ideation. Given patient's history, ED report, her brothers and sisters concern, and refusal to restart antipsychotic medication, will hold onto patient for now to better assess her safety and ability to function in the community. -Reviewed labs from [place] ED: CBC, lytes, BUN/creatinine, calcium, TSH WNL; Negative COVID; UA with elevated leukocyte Estrace however negative nitrate; no report of urinary symptoms; refused to have admission physical. of note, patient reported that she went to [facility] ED because of neck pain, choking and swallowing issues; she says these have remained fully resolved (At ED Patient reported she brought up her somatic complaints her doctors and that she had a recent endoscopy, stress test, swallow test all results unremarkable). Hospital course: 01/09 remains without any insight, is irritable and wants discharge; she denies that she ever told ED staff anything about AVH, paranoid thoughts, demons; denies that any of the events reported by ED staff or sister are true. Says she does not have any history psychiatric illness. Patient refused Eliquis Denies that she is on omeprazole or any other medication; does not want to discuss her medical history 01/10 no change in presentation; remains without insight; denies all collateral reports. Refusing Eliquis despite brief writer's concern explanation of risks of not taking Eliquis 01/12/23 continue current plan of care. 01/[address] involuntary commitment. Patient continues to have psychotic symptoms and told her therapist that she is currently being accuse by this brief writer of wanting to hurt baby's. Patient continues to have no insight. She is afraid to go back to apartment due to paranoid delusions; pt told sister (and this brief writer) that she was planning to go stay at her mother's; sister is very afraid for their mothers safety and said if patient is discharged she will immediately pursue a restraining order; she is not taking prescribed Eliquis to prevent pulmonary embolism; patient is presenting with similar symptoms that resulted in [facility] after she threatened to kill her mother, father and sister. Patient has demonstrated that she is able to be safe and stable in the community on medication and by all accounts, including her own, had a very nice and enjoyable life while on antipsychotic medication. There is a strong concern that patient will continue to further decompensate if she does not get back on antipsychotic medication. 01/15 no change in presentation; no insight, remains adamant about not having any psychiatric illness and that she should be discharged. Says that her family has no concerns about her and not able to tolerate hearing otherwise Reiterated montague warning Plan: Petition court for involuntary commitment for patient's safety -q15 min checks -Continue Eliquis 2.5 mg b.i.d., brief writer contacted patient's outpatient prescriber Dr. Nelda Rodriguez [facility] who communicated to brief writer that patient is supposed to remain on Eliquis -pt adamantly refuses antipsychotic so none ordered to avoid further irritating patient -does not seem possible to invoke healthcare proxy without sign document COLLATERAL: Patient has a 3 day notice wanting discharge. In order to assess patient's safety and ability to return to the community, brief writer obtained collateral from patient's sister Danielle, who knows patient is on the psych unit at [facility] and called the transition social worker yesterday to provide information. Feather Mixer did not give out any information. Danielle reports that 10 years ago patient severely decompensated and threatened to kill her and their parents, which resulted in psychiatric hospitalization at a [facility] hospital. Patient was started on Risperdal and afterwards did quite well however was never able to work again and in fact has not been working since the , on disability instead. Danielle reports that they have been concerned about patient for several months, feeling that she's been decompensated little by little and that she is exhibiting the very same behaviors that led to her hospitalization 10 years ago. She says that the past few weeks, patient home health aide and friend have been reaching out to sister, saying that something is willing different about patient and that she needs help, afraid she might hurt herself. Danielle reports that at their father's wake, she went to her brother's car and started screaming; she said her father was trying to pull her out of her body to join him. She corroborates with the report from [facility] ED it patient has been expressing paranoid delusions that satanic people, demons are after her that they are shooting a pathway to her neighbors and healing her neighbors but not her... Danielle says patient for currently calls her on the phone screaming over and over; she is insisting that she be relocated, that her sister get the government to relocate her because she is not safe in her apartment, someone is there trying to hurt her, she is hearing babies screaming... And is unable to be redirected or accept Danielle's answers. Danielle says patient was very concerned that her brother was a zombie; said the healthcare person the comes to her house was an imposter... She said that patient has been saying she plans to move in with her mother. Danielle is very fearful of this since patient threatened to kill her mother 10 years ago when she had similarly decompensated and she said that there is no way she will allow patient to live with their mother. Danielle reports that her brother Parker, the one who drove her to the emergency room this past week is the healthcare proxy. Patient's therapist called wanting to talk with brief writer; brief writer asked patient and patient said yes she wants this brief writer to talk with her therapist Neva. Patient continues to refuse all medication including Eliquis. Feather Mixer spoke with Neva, outpatient therapist who has known her since 2011 after she was discharged from [facility]. She reports that patient has never acknowledged any psychiatric illness of any kind. Overall these years patient has remained stable and able to care for self in the community. The sometime patient would make a delusional comment about being electronically scanned daily, and would have some would seem to be somatic physical complaints; otherwise no psychotic symptoms present until now. Therapist thinks patient was taking her medications until about a few months ago. She agrees that the of her father and emotional fall out has worsened symptoms. Therapist has concerns about patient recovering and further decompensating if she remains off medications and said she would recommend that patient get back on medications. Therapist told brief writer that patient complained to her that brief writer and staff for lying to her and accusing her of hurting baby's. Last week Patient told brief writer that her brother Parker was her healthcare proxy; patient's sister Danielle confirm this. Feather Mixer called Parker on 01/10 in order to collect information, collateral to further assess if patient is safe to return to the community since she remains adamant about being discharged. Patient's brother her expressed that he is very concerned and feels that if she is not treated, getting back on medications she will end up quickly worsening. He said that 10 years ago following [facility] admission, she emerged doing much better and remained so on medication for most of the next decade. Parker thinks patient may have been on a community Adan. He only recently learned that she stopped taking her medications about a year ago. He agrees with Danielle that patient has slowly been decompensating over the past few months. Over the past few weeks, she has been expressing paranoid delusions saying that she is being scanned by electronic scanners... And making comments about satanic rituals going on in her apartment. Reports she has numerous body complaints about her body parts not functioning though she is always found to be in good medical condition; saying that her skin is black... She called [employer] (who oversees her apartment) and complained that there was something bad in her apartment, de Karla activities, blue light coming from the haas, something trying to imprint on her, something about hurting baby's... He said [employer] came over to inspect but nothing was found. Her brother reports that this past week, she also called 911 saying she was being attacked demonically, satanic rituals in her apartment; the police came up but of again found nothing. Parker says he has the police report and explained to his sister that she is not well, that she needs medication however patient denied there was anything wrong, even denied that she had called 911... Patient asked [facility] to bring her to the hospital for neck pain during which time patient was placed [address]. Patient's brother reiterates that if she is not treated with medication he is afraid she will continue to get worse; says she has been saying she does not want to go back to her apartment, but wants to live with their mother, which Parker says is not an option. Patient educated on: diagnosis and medication risk/benefits Informed Consent: does not understand Reason for continued inpatient stay Substantial Risk for: inability to function Time Spent With Patient Time: Total time managing care of this patient today ____ minutes.
[2023-01-15 18:00] VITALS: BP 110/64; PULSE 76; TEMP 36.3; O2SAT 99
--- NOTE | 2023-01-15 19:01 | PC.NURSE ---
Patient refused Eliquis despite encouragement to take the medication.
[2023-01-15] MEDS: LORazepam 1 MG TABLET PO (21:15)
[2023-01-16 09:01] VITALS: BP 120/71; PULSE 78; RESP 20; O2SAT 99
--- NOTE | 2023-01-16 09:54 | HO.PSYCHPN ---
Subjective Subjective Date of Service: 01/16/23 Reason For Visit: F29 unspecified psychosis Interim History: met with patient; discussed with teams Patient irritable on approach; says she has nothing to discuss other than to be discharged; pattern chart writer met with patient and social science instructor and patient accused staff of being both unhelpful and making things up. She says the only thing she wants to discusses her discharge otherwise nothing to talk about. She then walked away Mental Status Exam Mental Status Exam Narrative: Pt is alert and oriented; behavior is irritable, not cooperative cooperative; patient is not in distress; dressed in hospital gown over casual attire, adequately groomed; mood is described as irritable and affect congruent; eye contact appropriate; Speech is normal rate, volume and prosody and not pressured; no psychomotor agitation/retardation present; thought process is organized and goal directed; Thought content is on discharge; otherwise pertinent to relevant topics; did not express any paranoid, delusional thinking; denies any SI/HI. Denies AVH. Patients insight and judgment are impaired Diagnostics Vital Signs (24Hr): Vital Signs - 24 hr 01/15/23 18:00 01/16/23 09:01 Temperature 97.4 F Pulse Rate 76 78 Respiratory Rate 20 Blood Pressure 110/64 120/71 Pulse Oximetry 99 99 Oxygen Delivery Method Room Air Room Air BMI result Body Mass Index 22.3 Medications Medications Current Medications Acetaminophen (Acetaminophen 325 Mg Tablet) 650 mg PO Q6H PRN PRN Reason: Headache/Pain Mild Scale (1-3) Al Hydroxide/Mg Hydroxide (Magnesium Hydrox/Alum Hydrox 30 Ml Oral.Susp) 30 ml PO Q6H PRN PRN Reason: Heartburn/Nausea Apixaban (Apixaban 2.5 Mg Tablet) 2.5 mg PO BID [facility] Last Admin: 01/16/23 09:11 Dose: Not Given Benzocaine (Throat Lozenge, Medicated Lozenge) 1 lozenge MUCOUS MEM Q2H PRN PRN Reason: Sore Throat Lorazepam (Lorazepam 1 Mg Tablet) 1 mg PO BID PRN PRN Reason: anxiety/restlessness Last Admin: 01/15/23 21:15 Dose: 1 mg Magnesium Hydroxide (Milk Of Magnesia 30 Ml Oral.Susp) 30 ml PO DAILY PRN PRN Reason: Constipation Trazodone HCl (Trazodone Hcl 50 Mg Tablet) 50 mg PO BEDTIME MRX1 PRN PRN Reason: Insomnia Allergies Allergies Allergy/AdvReac Type Severity Reaction Status Date / Time amoxicillin Allergy Unknown Verified 01/08/23 03:36 codeine Allergy Unknown Verified 01/08/23 03:36 diphenhydramine Allergy Unknown Verified 01/08/23 03:36 [From Benadryl] Assessment & Plan Assessment & Plan (1) Schizophrenia: Status: Acute Code(s): F20.9 - Schizophrenia, unspecified Plan HPI: Patient is a 67-year-old female with history of schizophrenia, history of PE (2019) who presents after her brother took patient to ED for worsening paranoid delusions and AVH in the face of increased psychosocial stressors including her father's recent . In [place] [facility] patient was vocalizing that she is worried the FBI is out to get her; reported to emergency room staff she was seeing demons and spirits, feeling unsafe in her apartment due to a demon attack, seen flashing lights? and that the demons were demanding to leave her apartment and that she feels afraid in her apartment ? she also said that she is declining in health and unable to eat or sleep. At 1 point patient was agitated and got Haldol IM. Told ED provider she stopped Risperdal because she was feeling foggy; at a different time she told staff it was making her legs restless. Impression: pt has hx of psychotic disorder and admission to critical access hospital; however, she's been stable for 10 years on Risperdal (and possibly remained so after she reportedly discontinued it a year or so ago). It seems that the emotional stress of her fathers has triggered return of psychotic symptoms. ED provider and collateral from sister report that patient for past weeks and days patient has been dysregulated by paranoid delusions and AH which are interfering in her life. However, currently on the unit, she is presenting as organized in both speech and behavior, denying any AVH or paranoid thinking and not expressing any delusional ideation. Given patient's history, ED report, her brothers and sisters concern, and refusal to restart antipsychotic medication, will hold onto patient for now to better assess her safety and ability to function in the community. -Reviewed labs from [place] [facility]: CBC, lytes, BUN/creatinine, calcium, TSH WNL; Negative COVID; UA with elevated leukocyte Estrace however negative nitrate; no report of urinary symptoms; refused to have admission physical. of note, patient reported that she went to [place] [facility] because of neck pain, choking and swallowing issues; she says these have remained fully resolved (At ED Patient reported she brought up her somatic complaints her doctors and that she had a recent endoscopy, stress test, swallow test all results unremarkable). Hospital course: 01/09 remains without any insight, is irritable and wants discharge; she denies that she ever told ED staff anything about AVH, paranoid thoughts, demons; denies that any of the events reported by ED staff or sister are true. Says she does not have any history psychiatric illness. Patient refused Eliquis Denies that she is on omeprazole or any other medication; does not want to discuss her medical history 01/10 no change in presentation; remains without insight; denies all collateral reports. Refusing Eliquis despite pattern chart writer's concern explanation of risks of not taking Eliquis 01/12/23 continue current plan of care. 01/[address] involuntary commitment. Patient continues to have psychotic symptoms and told her therapist that she is currently being accuse by this pattern chart writer of wanting to hurt baby's. Patient continues to have no insight. She is afraid to go back to apartment due to paranoid delusions; pt told sister (and this pattern chart writer) that she was planning to go stay at her mother's; sister is very afraid for their mothers safety and said if patient is discharged she will immediately pursue a restraining order; she is not taking prescribed Eliquis to prevent pulmonary embolism; patient is presenting with similar symptoms that resulted in past involuntary commitment at a [facility] after she threatened to kill her mother, father and sister. Patient has demonstrated that she is able to be safe and stable in the community on medication and by all accounts, including her own, had a very nice and enjoyable life while on antipsychotic medication. There is a strong concern that patient will continue to further decompensate if she does not get back on antipsychotic medication. 01/15 no change in presentation; no insight, remains adamant about not having any psychiatric illness and that she should be discharged. Says that her family has no concerns about her and not able to tolerate hearing otherwise Reiterated [place] warning 01/16 patient remains without insight; continues to refuse all medication Plan: Petition court for involuntary commitment for patient's safety -q15 min checks -Continue Eliquis 2.5 mg b.i.d., pattern chart writer contacted patient's outpatient prescriber Dr. Nelda [facility] who communicated to pattern chart writer that patient is supposed to remain on Eliquis -pt adamantly refuses antipsychotic so none ordered to avoid further irritating patient -does not seem possible to invoke healthcare proxy without sign document COLLATERAL: Patient has a 3 day notice wanting discharge. In order to assess patient's safety and ability to return to the community, pattern chart writer obtained collateral from patient's sister Danielle, who knows patient is on the psych unit at [facility] and called the social science instructor yesterday to provide information. Heating Systems Installer did not give out any information. Danielle reports that 10 years ago patient severely decompensated and threatened to kill her and their parents, which resulted in psychiatric hospitalization at a [facility]. Patient was started on Risperdal and afterwards did quite well however was never able to work again and in fact has not been working since the , on disability instead. Danielle reports that they have been concerned about patient for several months, feeling that she's been decompensated little by little and that she is exhibiting the very same behaviors that led to her hospitalization 10 years ago. She says that the past few weeks, patient home health aide and friend have been reaching out to sister, saying that something is willing different about patient and that she needs help, afraid she might hurt herself. Danielle reports that at their father's wake, she went to her brother's car and started screaming; she said her father was trying to pull her out of her body to join him. She corroborates with the report from [place] ED it patient has been expressing paranoid delusions that satanic people, demons are after her that they are shooting a pathway to her neighbors and healing her neighbors but not her... Danielle says patient for currently calls her on the phone screaming over and over; she is insisting that she be relocated, that her sister get the government to relocate her because she is not safe in her apartment, someone is there trying to hurt her, she is hearing babies screaming... And is unable to be redirected or accept Danielle's answers. Danielle says patient was very concerned that her brother was a zombie; said the healthcare person the comes to her house was an imposter... She said that patient has been saying she plans to move in with her mother. Danielle is very fearful of this since patient threatened to kill her mother 10 years ago when she had similarly decompensated and she said that there is no way she will allow patient to live with their mother. Danielle reports that her brother Parker, the one who drove her to the emergency room this past week is the healthcare proxy. Patient's therapist called wanting to talk with pattern chart writer; pattern chart writer asked patient and patient said yes she wants this pattern chart writer to talk with her therapist Neva. Patient continues to refuse all medication including Eliquis. Heating Systems Installer spoke with Neva, outpatient therapist who has known her since 2011 after she was discharged from [facility]. She reports that patient has never acknowledged any psychiatric illness of any kind. Overall these years patient has remained stable and able to care for self in the community. The sometime patient would make a delusional comment about being electronically scanned daily, and would have some would seem to be somatic physical complaints; otherwise no psychotic symptoms present until now. Therapist thinks patient was taking her medications until about a few months ago. She agrees that the of her father and emotional fall out has worsened symptoms. Therapist has concerns about patient recovering and further decompensating if she remains off medications and said she would recommend that patient get back on medications. Therapist told pattern chart writer that patient complained to her that pattern chart writer and staff for lying to her and accusing her of hurting baby's. Last week Patient told pattern chart writer that her brother Parker was her healthcare proxy; patient's sister Danielle confirm this. called Parker on 01/10 in order to collect information, collateral to further assess if patient is safe to return to the community since she remains adamant about being discharged. Patient's brother her expressed that he is very concerned and feels that if she is not treated, getting back on medications she will end up quickly worsening. He said that 10 years ago [facility], she emerged doing much better and remained so on medication for most of the next decade. Parker thinks patient may have been on a [employer]. He only recently learned that she stopped taking her medications about a year ago. He agrees with Danielle that patient has slowly been decompensating over the past few months. Over the past few weeks, she has been expressing paranoid delusions saying that she is being scanned by electronic scanners... And making comments about satanic rituals going on in her apartment. Reports she has numerous body complaints about her body parts not functioning though she is always found to be in good medical condition; saying that her skin is black... She called [employer] (who oversees her apartment) and complained that there was something bad in her apartment, de Karla activities, blue light coming from the haas, something trying to imprint on her, something about hurting baby's... He said [employer] came over to inspect but nothing was found. Her brother reports that this past week, she also called 911 saying she was being attacked demonically, satanic rituals in her apartment; the police came up but of again found nothing. Parker says he has the police report and explained to his sister that she is not well, that she needs medication however patient denied there was anything wrong, even denied that she had called 911... Patient asked Parker to bring her to the hospital for neck pain during which time patient was placed [address]. Patient's brother reiterates that if she is not treated with medication he is afraid she will continue to get worse; says she has been saying she does not want to go back to her apartment, but wants to live with their mother, which Parker says is not an option. Patient educated on: diagnosis Informed Consent: does not understand Reason for continued inpatient stay Substantial Risk for: inability to function Time Spent With Patient Time: Total time managing care of this patient today ____ minutes.
[2023-01-16 16:10] VITALS: BP 101/72; PULSE 144; RESP 16; TEMP 36; O2SAT 99
--- NOTE | 2023-01-16 16:10 | PC.NURSE ---
Patient HR found to be 144 with routine VS. Patient reported at that time that she was able to feel her heart racing, states it happened before and it goes away and that she will be fine. Patient denied CP or SOB, sitting in bed, no signs of distress. Provider aware.
[2023-01-16] MEDS: LORazepam 1 MG TABLET PO (16:18)
[2023-01-17 06:00] VITALS: BP 110/67; PULSE 100; RESP 16; O2SAT 99
--- NOTE | 2023-01-17 08:51 | HO.PSYCHPN ---
Subjective Subjective Date of Service: 01/17/23 Reason For Visit: F29 unspecified psychosis Interim History: met with patient; discussed with team Patient refused to talk with contract technical writer saying she has nothing to discuss. Later contract technical writer overheard patient in the hallway talking to staff saying that every but here lies about her. Mental Status Exam Mental Status Exam Narrative: Pt is alert and oriented; behavior is irritable, not cooperative; patient is not in distress; dressed in hospital gown over casual attire, adequately groomed; mood is described as irritable and affect congruent; eye contact appropriate; Speech is normal rate, volume and prosody and not pressured; no psychomotor agitation/retardation present; thought process is organized and goal directed; Thought content is on discharge; otherwise pertinent to relevant topics; did not express any paranoid, delusional thinking; denies any SI/HI. Denies AVH. Patients insight and judgment are impaired Diagnostics Vital Signs (24Hr): Vital Signs - 24 hr 01/16/23 09:01 01/16/23 16:10 01/17/23 06:00 Temperature 96.8 F Pulse Rate 78 144 H 100 Respiratory Rate 20 16 16 Blood Pressure 120/71 101/72 110/67 Pulse Oximetry 99 99 99 Oxygen Delivery Method Room Air Room Air Room Air BMI result Body Mass Index 22.3 Medications Medications Current Medications Acetaminophen (Acetaminophen 325 Mg Tablet) 650 mg PO Q6H PRN PRN Reason: Headache/Pain Mild Scale (1-3) Al Hydroxide/Mg Hydroxide (Magnesium Hydrox/Alum Hydrox 30 Ml Oral.Susp) 30 ml PO Q6H PRN PRN Reason: Heartburn/Nausea Apixaban (Apixaban 2.5 Mg Tablet) 2.5 mg PO BID [facility] Last Admin: 01/17/23 08:46 Dose: Not Given Benzocaine (Throat Lozenge, Medicated Lozenge) 1 lozenge MUCOUS MEM Q2H PRN PRN Reason: Sore Throat Lorazepam (Lorazepam 1 Mg Tablet) 1 mg PO BID PRN PRN Reason: anxiety/restlessness Last Admin: 01/16/23 16:18 Dose: 1 mg Magnesium Hydroxide (Milk Of Magnesia 30 Ml Oral.Susp) 30 ml PO DAILY PRN PRN Reason: Constipation Trazodone HCl (Trazodone Hcl 50 Mg Tablet) 50 mg PO BEDTIME MRX1 PRN PRN Reason: Insomnia Allergies Allergies Allergy/AdvReac Type Severity Reaction Status Date / Time amoxicillin Allergy Unknown Verified 01/08/23 03:36 codeine Allergy Unknown Verified 01/08/23 03:36 diphenhydramine Allergy Unknown Verified 01/08/23 03:36 [From Benadryl] Assessment & Plan Assessment & Plan (1) Schizophrenia: Status: Acute Code(s): F20.9 - Schizophrenia, unspecified Plan HPI: Patient is a 67-year-old female with history of schizophrenia, history of PE (2019) who presents after her brother took patient to ED for worsening paranoid delusions and AVH in the face of increased psychosocial stressors including her father's recent . In [facility] patient was vocalizing that she is worried the FBI is out to get her; reported to emergency room staff she was seeing demons and spirits, feeling unsafe in her apartment due to a demon attack, seen flashing lights? and that the demons were demanding to leave her apartment and that she feels afraid in her apartment ? she also said that she is declining in health and unable to eat or sleep. At 1 point patient was agitated and got Haldol IM. Told ED provider she stopped Risperdal because she was feeling foggy; at a different time she told staff it was making her legs restless. Impression: pt has hx of psychotic disorder and admission to [facility]; however, she's been stable for 10 years on Risperdal (and possibly remained so after she reportedly discontinued it a year or so ago). It seems that the emotional stress of her fathers has triggered return of psychotic symptoms. ED provider and collateral from sister report that patient for past weeks and days patient has been dysregulated by paranoid delusions and AH which are interfering in her life. However, currently on the unit, she is presenting as organized in both speech and behavior, denying any AVH or paranoid thinking and not expressing any delusional ideation. Given patient's history, ED report, her brothers and sisters concern, and refusal to restart antipsychotic medication, will hold onto patient for now to better assess her safety and ability to function in the community. -Reviewed labs from [facility]: CBC, lytes, BUN/creatinine, calcium, TSH WNL; Negative COVID; UA with elevated leukocyte Estrace however negative nitrate; no report of urinary symptoms; refused to have admission physical. of note, patient reported that she went to [facility] because of neck pain, choking and swallowing issues; she says these have remained fully resolved (At ED Patient reported she brought up her somatic complaints her doctors and that she had a recent endoscopy, stress test, swallow test all results unremarkable). Hospital course: 01/09 remains without any insight, is irritable and wants discharge; she denies that she ever told ED staff anything about AVH, paranoid thoughts, demons; denies that any of the events reported by ED staff or sister are true. Says she does not have any history psychiatric illness. Patient refused Eliquis Denies that she is on omeprazole or any other medication; does not want to discuss her medical history 01/10 no change in presentation; remains without insight; denies all collateral reports. Refusing Eliquis despite contract technical writer's concern explanation of risks of not taking Eliquis 01/12/23 continue current plan of care. 01/[address] involuntary commitment. Patient continues to have psychotic symptoms and told her therapist that she is currently being accuse by this contract technical writer of wanting to hurt baby's. Patient continues to have no insight. She is afraid to go back to apartment due to paranoid delusions; pt told sister (and this contract technical writer) that she was planning to go stay at her mother's; sister is very afraid for their mothers safety and said if patient is discharged she will immediately pursue a restraining order; she is not taking prescribed Eliquis to prevent pulmonary embolism; patient is presenting with similar symptoms that resulted in past involuntary commitment at a [facility] hospital after she threatened to kill her mother, father and sister. Patient has demonstrated that she is able to be safe and stable in the community on medication and by all accounts, including her own, had a very nice and enjoyable life while on antipsychotic medication. There is a strong concern that patient will continue to further decompensate if she does not get back on antipsychotic medication. 01/15 no change in presentation; no insight, remains adamant about not having any psychiatric illness and that she should be discharged. Says that her family has no concerns about her and not able to tolerate hearing otherwise Reiterated montague warning 01/16 patient remains without insight; continues to refuse all medication 01/17 no change in presentation; will continue to pursue involuntary commitment scheduled for 01/21/23 at 11:00 Plan: Petition court for involuntary commitment on 01/21/23 at 11:00 for patient's safety -q15 min checks -Continue Eliquis 2.5 mg b.i.d., contract technical writer contacted patient's outpatient prescriber Dr. Nelda Rodriguez [facility] who communicated to contract technical writer that patient is supposed to remain on Eliquis -pt adamantly refuses antipsychotic so none ordered to avoid further irritating patient -does not seem possible to invoke healthcare proxy without sign document COLLATERAL: Patient has a 3 day notice wanting discharge. In order to assess patient's safety and ability to return to the community, contract technical writer obtained collateral from patient's sister Danielel, who knows patient is on the psych unit at [facility] and called the transition social worker yesterday to provide information. Director Adult did not give out any information. Danielle reports that 10 years ago patient severely decompensated and threatened to kill her and their parents, which resulted in psychiatric hospitalization at a [facility] hospital. Patient was started on Risperdal and afterwards did quite well however was never able to work again and in fact has not been working since the , on disability instead. Danielle reports that they have been concerned about patient for several months, feeling that she's been decompensated little by little and that she is exhibiting the very same behaviors that led to her hospitalization 10 years ago. She says that the past few weeks, patient home health aide and friend have been reaching out to sister, saying that something is willing different about patient and that she needs help, afraid she might hurt herself. Danielle reports that at their father's wake, she went to her brother's car and started screaming; she said her father was trying to pull her out of her body to join him. She corroborates with the report from [facility] it patient has been expressing paranoid delusions that satanic people, demons are after her that they are shooting a pathway to her neighbors and healing her neighbors but not her... Danielle says patient for currently calls her on the phone screaming over and over; she is insisting that she be relocated, that her sister get the government to relocate her because she is not safe in her apartment, someone is there trying to hurt her, she is hearing babies screaming... And is unable to be redirected or accept Danielle's answers. Danielle says patient was very concerned that her brother was a zombie; said the healthcare person the comes to her house was an imposter... She said that patient has been saying she plans to move in with her mother. Danielle is very fearful of this since patient threatened to kill her mother 10 years ago when she had similarly decompensated and she said that there is no way she will allow patient to live with their mother. Danielle reports that her brother Parker, the one who drove her to the emergency room this past week is the healthcare proxy. Patient's therapist called wanting to talk with contract technical writer; contract technical writer asked patient and patient said yes she wants this contract technical writer to talk with her therapist Neva. Patient continues to refuse all medication including Eliquis. Director Adult spoke with Neva, outpatient therapist who has known her since 2011 after she was discharged from [facility]. She reports that patient has never acknowledged any psychiatric illness of any kind. Overall these years patient has remained stable and able to care for self in the community. The sometime patient would make a delusional comment about being electronically scanned daily, and would have some would seem to be somatic physical complaints; otherwise no psychotic symptoms present until now. Therapist thinks patient was taking her medications until about a few months ago. She agrees that the of her father and emotional fall out has worsened symptoms. Therapist has concerns about patient recovering and further decompensating if she remains off medications and said she would recommend that patient get back on medications. Therapist told contract technical writer that patient complained to her that contract technical writer and staff for lying to her and accusing her of hurting baby's. Last week Patient told contract technical writer that her brother Parker was her healthcare proxy; patient's sister Danielle confirm this. Director Adult called Parker on 01/10 in order to collect information, collateral to further assess if patient is safe to return to the community since she remains adamant about being discharged. Patient's brother her expressed that he is very concerned and feels that if she is not treated, getting back on medications she will end up quickly worsening. He said that 10 years ago following [facility] hospital admission, she emerged doing much better and remained so on medication for most of the next decade. Parker thinks patient may have been on a community Adan. He only recently learned that she stopped taking her medications about a year ago. He agrees with Danielle that patient has slowly been decompensating over the past few months. Over the past few weeks, she has been expressing paranoid delusions saying that she is being scanned by electronic scanners... And making comments about satanic rituals going on in her apartment. Reports she has numerous body complaints about her body parts not functioning though she is always found to be in good medical condition; saying that her skin is black... She called [employer] (who oversees her apartment) and complained that there was something bad in her apartment, de Karla activities, blue light coming from the haas, something trying to imprint on her, something about hurting baby's... He said [employer] came over to inspect but nothing was found. Her brother reports that this past week, she also called 911 saying she was being attacked demonically, satanic rituals in her apartment; the police came up but of again found nothing. Parker says he has the police report and explained to his sister that she is not well, that she needs medication however patient denied there was anything wrong, even denied that she had called 911... Patient asked Parker to bring her to the hospital for neck pain during which time patient was placed [address]. Patient's brother reiterates that if she is not treated with medication he is afraid she will continue to get worse; says she has been saying she does not want to go back to her apartment, but wants to live with their mother, which Parker says is not an option. Reason for continued inpatient stay Substantial Risk for: inability to function Time Spent With Patient Time: Total time managing care of this patient today ____ minutes.
[2023-01-17 18:00] VITALS: BP 133/63; PULSE 72; RESP 18; TEMP 36.4; O2SAT 99
[2023-01-17] MEDS: LORazepam 1 MG TABLET PO (21:14)
[2023-01-18 06:00] VITALS: BP 120/60; PULSE 75; RESP 14; TEMP 36.6; O2SAT 97
--- NOTE | 2023-01-18 10:00 | HO.PSYCHPN ---
Subjective Subjective Date of Service: 01/18/23 Reason For Visit: F29 unspecified psychosis Subjective Notes: [place] Warning and Section 7 Healthcare Proxy: No Guardianship: No Medical Problems Affecting Mental Status: Yes (TD ) Interim History: 67 yo WF denying any problems except being here- denies she has ever been on risperidone- Reports she is sleeping fine, eating fine, denies si/hi/ah/vh. Medication Compliance: No Side effects from medications: Yes (TD) Attending Groups: Intermittent Review of Systems Acute medical concerns: No Medical Review of Systems: unchanged Mental Status Exam Mental Status Exam Patient Appearance: Disheveled Patient Orientation: Person, Place, Time and Situation Level of Consciousness: Awake Patient Behavior: Guarded and Resistive to Care Mood Description: Calm Affect Description: Blunted Speech Pattern: Clear Delusions: Not Present (none able to be elicited) Thought Process: Intact, Distracted, Goal Oriented and Slowed Thinking Thought Content: positive for Poverty of Content Depressive Symptoms: Muscle Tension Abnormal Motor Activity Signs and Symptoms: Tic (facial movements) Judgement: Fair Diagnostics Vital Signs (24Hr): Vital Signs - 24 hr 01/17/23 18:00 01/18/23 06:00 Temperature 97.5 F 97.8 F Pulse Rate 72 75 Respiratory Rate 18 14 Blood Pressure 133/63 120/60 Pulse Oximetry 99 97 Oxygen Delivery Method Room Air Room Air BMI result Body Mass Index 22.3 Medications Medications Current Medications Acetaminophen (Acetaminophen 325 Mg Tablet) 650 mg PO Q6H PRN PRN Reason: Headache/Pain Mild Scale (1-3) Al Hydroxide/Mg Hydroxide (Magnesium Hydrox/Alum Hydrox 30 Ml Oral.Susp) 30 ml PO Q6H PRN PRN Reason: Heartburn/Nausea Apixaban (Apixaban 2.5 Mg Tablet) 2.5 mg PO BID [facility] Last Admin: 01/18/23 09:25 Dose: Not Given Benzocaine (Throat Lozenge, Medicated Lozenge) 1 lozenge MUCOUS MEM Q2H PRN PRN Reason: Sore Throat Lorazepam (Lorazepam 1 Mg Tablet) 1 mg PO BID PRN PRN Reason: anxiety/restlessness Last Admin: 01/17/23 21:14 Dose: 1 mg Magnesium Hydroxide (Milk Of Magnesia 30 Ml Oral.Susp) 30 ml PO DAILY PRN PRN Reason: Constipation Trazodone HCl (Trazodone Hcl 50 Mg Tablet) 50 mg PO BEDTIME MRX1 PRN PRN Reason: Insomnia Allergies Allergies Allergy/AdvReac Type Severity Reaction Status Date / Time amoxicillin Allergy Unknown Verified 01/08/23 03:36 codeine Allergy Unknown Verified 01/08/23 03:36 diphenhydramine Allergy Unknown Verified 01/08/23 03:36 [From Benadryl] Assessment & Plan Assessment & Plan (1) Schizophrenia: Status: Acute Code(s): F20.9 - Schizophrenia, unspecified Assessment and Plan: 01/18 CTP Plan HPI: Patient is a 67-year-old female with history of schizophrenia, history of PE (2019) who presents after her brother took patient to ED for worsening paranoid delusions and AVH in the face of increased psychosocial stressors including her father's recent . In [facility] patient was vocalizing that she is worried the FBI is out to get her; reported to emergency room staff she was seeing demons and spirits, feeling unsafe in her apartment due to a demon attack, seen flashing lights? and that the demons were demanding to leave her apartment and that she feels afraid in her apartment ? she also said that she is declining in health and unable to eat or sleep. At 1 point patient was agitated and got Haldol IM. Told ED provider she stopped Risperdal because she was feeling foggy; at a different time she told staff it was making her legs restless. Impression: pt has hx of psychotic disorder and admission to [facility]; however, she's been stable for 10 years on Risperdal (and possibly remained so after she reportedly discontinued it a year or so ago). It seems that the emotional stress of her fathers has triggered return of psychotic symptoms. ED provider and collateral from sister report that patient for past weeks and days patient has been dysregulated by paranoid delusions and AH which are interfering in her life. However, currently on the unit, she is presenting as organized in both speech and behavior, denying any AVH or paranoid thinking and not expressing any delusional ideation. Given patient's history, ED report, her brothers and sisters concern, and refusal to restart antipsychotic medication, will hold onto patient for now to better assess her safety and ability to function in the community. -Reviewed labs from [facility]: CBC, lytes, BUN/creatinine, calcium, TSH WNL; Negative COVID; UA with elevated leukocyte Estrace however negative nitrate; no report of urinary symptoms; refused to have admission physical. of note, patient reported that she went to [facility] ED because of neck pain, choking and swallowing issues; she says these have remained fully resolved (At ED Patient reported she brought up her somatic complaints her doctors and that she had a recent endoscopy, stress test, swallow test all results unremarkable). Hospital course: 01/09 remains without any insight, is irritable and wants discharge; she denies that she ever told ED staff anything about AVH, paranoid thoughts, demons; denies that any of the events reported by ED staff or sister are true. Says she does not have any history psychiatric illness. Patient refused Eliquis Denies that she is on omeprazole or any other medication; does not want to discuss her medical history 01/10 no change in presentation; remains without insight; denies all collateral reports. Refusing Eliquis despite ticket writer's concern explanation of risks of not taking Eliquis 01/12/23 continue current plan of care. 01/[address] involuntary commitment. Patient continues to have psychotic symptoms and told her therapist that she is currently being accuse by this ticket writer of wanting to hurt baby's. Patient continues to have no insight. She is afraid to go back to apartment due to paranoid delusions; pt told sister (and this ticket writer) that she was planning to go stay at her mother's; sister is very afraid for their mothers safety and said if patient is discharged she will immediately pursue a restraining order; she is not taking prescribed Eliquis to prevent pulmonary embolism; patient is presenting with similar symptoms that resulted in past involuntary commitment at a [facility] after she threatened to kill her mother, father and sister. Patient has demonstrated that she is able to be safe and stable in the community on medication and by all accounts, including her own, had a very nice and enjoyable life while on antipsychotic medication. There is a strong concern that patient will continue to further decompensate if she does not get back on antipsychotic medication. 01/15 no change in presentation; no insight, remains adamant about not having any psychiatric illness and that she should be discharged. Says that her family has no concerns about her and not able to tolerate hearing otherwise Reiterated [place] warning 01/16 patient remains without insight; continues to refuse all medication 01/17 no change in presentation; will continue to pursue involuntary commitment scheduled for 01/21/23 at 11:00 Plan: Petition court for involuntary commitment on 01/21/23 at 11:00 for patient's safety -q15 min checks -Continue Eliquis 2.5 mg b.i.d., ticket writer contacted patient's outpatient prescriber Dr. Nelda Rodriguez [facility] who communicated to ticket writer that patient is supposed to remain on Eliquis -pt adamantly refuses antipsychotic so none ordered to avoid further irritating patient -does not seem possible to invoke healthcare proxy without sign document COLLATERAL: Patient has a 3 day notice wanting discharge. In order to assess patient's safety and ability to return to the community, ticket writer obtained collateral from patient's sister Danielle, who knows patient is on the psych unit at [facility] and called the social welfare clerk yesterday to provide information. Theater Technician did not give out any information. Danielle reports that 10 years ago patient severely decompensated and threatened to kill her and their parents, which resulted in psychiatric hospitalization at a [facility]. Patient was started on Risperdal and afterwards did quite well however was never able to work again and in fact has not been working since the , on disability instead. Danielle reports that they have been concerned about patient for several months, feeling that she's been decompensated little by little and that she is exhibiting the very same behaviors that led to her hospitalization 10 years ago. She says that the past few weeks, patient home health aide and friend have been reaching out to sister, saying that something is willing different about patient and that she needs help, afraid she might hurt herself. Danielle reports that at their father's wake, she went to her brother's car and started screaming; she said her father was trying to pull her out of her body to join him. She corroborates with the report from [facility] ED it patient has been expressing paranoid delusions that satanic people, demons are after her that they are shooting a pathway to her neighbors and healing her neighbors but not her... Danielle says patient for currently calls her on the phone screaming over and over; she is insisting that she be relocated, that her sister get the government to relocate her because she is not safe in her apartment, someone is there trying to hurt her, she is hearing babies screaming... And is unable to be redirected or accept Danielle's answers. Danielle says patient was very concerned that her brother was a zombie; said the healthcare person the comes to her house was an imposter... She said that patient has been saying she plans to move in with her mother. Danielle is very fearful of this since patient threatened to kill her mother 10 years ago when she had similarly decompensated and she said that there is no way she will allow patient to live with their mother. Danielle reports that her brother Parker, the one who drove her to the emergency room this past week is the healthcare proxy. Patient's therapist called wanting to talk with ticket writer; ticket writer asked patient and patient said yes she wants this ticket writer to talk with her therapist Neva. Patient continues to refuse all medication including Eliquis. Theater Technician spoke with Neva, outpatient therapist who has known her since 2011 after she was discharged from [facility]. She reports that patient has never acknowledged any psychiatric illness of any kind. Overall these years patient has remained stable and able to care for self in the community. The sometime patient would make a delusional comment about being electronically scanned daily, and would have some would seem to be somatic physical complaints; otherwise no psychotic symptoms present until now. Therapist thinks patient was taking her medications until about a few months ago. She agrees that the of her father and emotional fall out has worsened symptoms. Therapist has concerns about patient recovering and further decompensating if she remains off medications and said she would recommend that patient get back on medications. Therapist told ticket writer that patient complained to her that ticket writer and staff for lying to her and accusing her of hurting baby's. Last week Patient told ticket writer that her brother Parker was her healthcare proxy; patient's sister Danielle confirm this. Theater Technician called Parker on 01/10 in order to collect information, collateral to further assess if patient is safe to return to the community since she remains adamant about being discharged. Patient's brother her expressed that he is very concerned and feels that if she is not treated, getting back on medications she will end up quickly worsening. He said that 10 years ago following [facility] admission, she emerged doing much better and remained so on medication for most of the next decade. Parker thinks patient may have been on a community Adan. He only recently learned that she stopped taking her medications about a year ago. He agrees with Danielle that patient has slowly been decompensating over the past few months. Over the past few weeks, she has been expressing paranoid delusions saying that she is being scanned by electronic scanners... And making comments about satanic rituals going on in her apartment. Reports she has numerous body complaints about her body parts not functioning though she is always found to be in good medical condition; saying that her skin is black... She called [employer] (who oversees her apartment) and complained that there was something bad in her apartment, de Karla activities, blue light coming from the haas, something trying to imprint on her, something about hurting baby's... He said [employer] came over to inspect but nothing was found. Her brother reports that this past week, she also called 911 saying she was being attacked demonically, satanic rituals in her apartment; the police came up but of again found nothing. Parker says he has the police report and explained to his sister that she is not well, that she needs medication however patient denied there was anything wrong, even denied that she had called 911... Patient asked Parker to bring her to the hospital for neck pain during which time patient was placed Section 12. Patient's brother reiterates that if she is not treated with medication he is afraid she will continue to get worse; says she has been saying she does not want to go back to her apartment, but wants to live with their mother, which Parker says is not an option. Patient educated on: medication risk/benefits Informed Consent: further education needed Reason for continued inpatient stay Substantial Risk for: inability to function and rapid decompensation Time Spent With Patient Time: Total time managing care of this patient today ____ minutes.
[2023-01-18 19:25] VITALS: BP 127/61; PULSE 66
[2023-01-18] MEDS: LORazepam 1 MG TABLET PO (19:43)
[2023-01-19 08:00] VITALS: BP 121/59; PULSE 65; RESP 18; O2SAT 100
--- NOTE | 2023-01-19 10:30 | HO.PSYCHPN ---
Subjective Subjective Date of Service: 01/19/23 Reason For Visit: F29 unspecified psychosis Subjective Notes: Section 7 Interim History: 67 yo WF sitting in kitchen with bag of her things , says staff have the rest of her things- She says she stands near door waiting to be discharged not to run out- She is just waiting- She denies any problems, takes only ativan at night, sleep and eating ok - Seems sealed over, though odd, holding bible in one hand and paper bag of belongings in other. Medication Compliance: No Review of Systems Acute medical concerns: No Mental Status Exam Mental Status Exam Narrative: odd eye contact, facial TD, limited engagement- unkempt but dressed in house dress with cecil as bath robe. Patient Appearance: Rigid Patient Orientation: Person, Place, Time and Situation Level of Consciousness: Awake Patient Behavior: Passive and Resistive to Care Mood Description: Apprehensive Patient Cognition Impaired: No Ability to Follow Directions: Fair Speech Pattern: Clear Thought Process: Intact, Distracted and Goal Oriented Thought Content: positive for Poverty of Content Abnormal Motor Activity Signs and Symptoms: Tic and Restlessness Judgement: Fair Diagnostics Vital Signs (24Hr): Vital Signs - 24 hr 01/18/23 19:25 Pulse Rate 66 Blood Pressure 127/61 BMI result Body Mass Index 22.3 Medications Medications Current Medications Acetaminophen (Acetaminophen 325 Mg Tablet) 650 mg PO Q6H PRN PRN Reason: Headache/Pain Mild Scale (1-3) Al Hydroxide/Mg Hydroxide (Magnesium Hydrox/Alum Hydrox 30 Ml Oral.Susp) 30 ml PO Q6H PRN PRN Reason: Heartburn/Nausea Apixaban (Apixaban 2.5 Mg Tablet) 2.5 mg PO BID MARITA Last Admin: 01/19/23 08:27 Dose: Not Given Benzocaine (Throat Lozenge, Medicated Lozenge) 1 lozenge MUCOUS MEM Q2H PRN PRN Reason: Sore Throat Lorazepam (Lorazepam 1 Mg Tablet) 1 mg PO BID PRN PRN Reason: anxiety/restlessness Last Admin: 01/18/23 19:43 Dose: 1 mg Magnesium Hydroxide (Milk Of Magnesia 30 Ml Oral.Susp) 30 ml PO DAILY PRN PRN Reason: Constipation Trazodone HCl (Trazodone Hcl 50 Mg Tablet) 50 mg PO BEDTIME MRX1 PRN PRN Reason: Insomnia Allergies Allergies Allergy/AdvReac Type Severity Reaction Status Date / Time amoxicillin Allergy Unknown Verified 01/08/23 03:36 codeine Allergy Unknown Verified 01/08/23 03:36 diphenhydramine Allergy Unknown Verified 01/08/23 03:36 [From Benadryl] Assessment & Plan Assessment & Plan (1) Schizophrenia: Status: Acute Code(s): F20.9 - Schizophrenia, unspecified Assessment and Plan: 01/18 CTP 01/19 not really able to engage patient - Plan HPI: Patient is a 67-year-old female with history of schizophrenia, history of PE (2019) who presents after her brother took patient to ED for worsening paranoid delusions and AVH in the face of increased psychosocial stressors including her father's recent . In [facility] patient was vocalizing that she is worried the FBI is out to get her; reported to emergency room staff she was seeing demons and spirits, feeling unsafe in her apartment due to a demon attack, seen flashing lights? and that the demons were demanding to leave her apartment and that she feels afraid in her apartment ? she also said that she is declining in health and unable to eat or sleep. At 1 point patient was agitated and got Haldol IM. Told ED provider she stopped Risperdal because she was feeling foggy; at a different time she told staff it was making her legs restless. Impression: pt has hx of psychotic disorder and admission to [facility]; however, she's been stable for 10 years on Risperdal (and possibly remained so after she reportedly discontinued it a year or so ago). It seems that the emotional stress of her fathers has triggered return of psychotic symptoms. ED provider and collateral from sister report that patient for past weeks and days patient has been dysregulated by paranoid delusions and AH which are interfering in her life. However, currently on the unit, she is presenting as organized in both speech and behavior, denying any AVH or paranoid thinking and not expressing any delusional ideation. Given patient's history, ED report, her brothers and sisters concern, and refusal to restart antipsychotic medication, will hold onto patient for now to better assess her safety and ability to function in the community. -Reviewed labs from [facility] ED: CBC, lytes, BUN/creatinine, calcium, TSH WNL; Negative COVID; UA with elevated leukocyte Estrace however negative nitrate; no report of urinary symptoms; refused to have admission physical. of note, patient reported that she went to [facility] ED because of neck pain, choking and swallowing issues; she says these have remained fully resolved (At ED Patient reported she brought up her somatic complaints her doctors and that she had a recent endoscopy, stress test, swallow test all results unremarkable). Hospital course: 01/09 remains without any insight, is irritable and wants discharge; she denies that she ever told ED staff anything about AVH, paranoid thoughts, demons; denies that any of the events reported by ED staff or sister are true. Says she does not have any history psychiatric illness. Patient refused Eliquis Denies that she is on omeprazole or any other medication; does not want to discuss her medical history 01/10 no change in presentation; remains without insight; denies all collateral reports. Refusing Eliquis despite life insurance underwriter's concern explanation of risks of not taking Eliquis 01/12/23 continue current plan of care. 01/[address] involuntary commitment. Patient continues to have psychotic symptoms and told her therapist that she is currently being accuse by this life insurance underwriter of wanting to hurt baby's. Patient continues to have no insight. She is afraid to go back to apartment due to paranoid delusions; pt told sister (and this life insurance underwriter) that she was planning to go stay at her mother's; sister is very afraid for their mothers safety and said if patient is discharged she will immediately pursue a restraining order; she is not taking prescribed Eliquis to prevent pulmonary embolism; patient is presenting with similar symptoms that resulted in past involuntary commitment at a [facility] after she threatened to kill her mother, father and sister. Patient has demonstrated that she is able to be safe and stable in the community on medication and by all accounts, including her own, had a very nice and enjoyable life while on antipsychotic medication. There is a strong concern that patient will continue to further decompensate if she does not get back on antipsychotic medication. 01/15 no change in presentation; no insight, remains adamant about not having any psychiatric illness and that she should be discharged. Says that her family has no concerns about her and not able to tolerate hearing otherwise Reiterated [place] warning 01/16 patient remains without insight; continues to refuse all medication 01/17 no change in presentation; will continue to pursue involuntary commitment scheduled for 01/21/23 at 11:00 Plan: Petition court for involuntary commitment on 01/21/23 at 11:00 for patient's safety -q15 min checks -Continue Eliquis 2.5 mg b.i.d., life insurance underwriter contacted patient's outpatient prescriber [facility] who communicated to life insurance underwriter that patient is supposed to remain on Eliquis -pt adamantly refuses antipsychotic so none ordered to avoid further irritating patient -does not seem possible to invoke healthcare proxy without sign document COLLATERAL: Patient has a 3 day notice wanting discharge. In order to assess patient's safety and ability to return to the community, life insurance underwriter obtained collateral from patient's sister Danielle, who knows patient is on the psych unit at [facility] and called the social work manager yesterday to provide information. [employer] did not give out any information. Danielle reports that 10 years ago patient severely decompensated and threatened to kill her and their parents, which resulted in psychiatric hospitalization at a [facility] hospital. Patient was started on Risperdal and afterwards did quite well however was never able to work again and in fact has not been working since the , on disability instead. Danielle reports that they have been concerned about patient for several months, feeling that she's been decompensated little by little and that she is exhibiting the very same behaviors that led to her hospitalization 10 years ago. She says that the past few weeks, patient home health aide and friend have been reaching out to sister, saying that something is willing different about patient and that she needs help, afraid she might hurt herself. Danielle reports that at their father's wake, she went to her brother's car and started screaming; she said her father was trying to pull her out of her body to join him. She corroborates with the report from [facility] it patient has been expressing paranoid delusions that satanic people, demons are after her that they are shooting a pathway to her neighbors and healing her neighbors but not her... Danielle says patient for currently calls her on the phone screaming over and over; she is insisting that she be relocated, that her sister get the government to relocate her because she is not safe in her apartment, someone is there trying to hurt her, she is hearing babies screaming... And is unable to be redirected or accept Danielle's answers. Danielle says patient was very concerned that her brother was a zombie; said the healthcare person the comes to her house was an imposter... She said that patient has been saying she plans to move in with her mother. Danielle is very fearful of this since patient threatened to kill her mother 10 years ago when she had similarly decompensated and she said that there is no way she will allow patient to live with their mother. Danielle reports that her brother Parker, the one who drove her to the emergency room this past week is the healthcare proxy. Patient's therapist called wanting to talk with life insurance underwriter; life insurance underwriter asked patient and patient said yes she wants this life insurance underwriter to talk with her therapist Neva. Patient continues to refuse all medication including Eliquis. [employer] spoke with Neva, outpatient therapist who has known her since 2011 after she was discharged from [facility]. She reports that patient has never acknowledged any psychiatric illness of any kind. Overall these years patient has remained stable and able to care for self in the community. The sometime patient would make a delusional comment about being electronically scanned daily, and would have some would seem to be somatic physical complaints; otherwise no psychotic symptoms present until now. Therapist thinks patient was taking her medications until about a few months ago. She agrees that the of her father and emotional fall out has worsened symptoms. Therapist has concerns about patient recovering and further decompensating if she remains off medications and said she would recommend that patient get back on medications. Therapist told life insurance underwriter that patient complained to her that life insurance underwriter and staff for lying to her and accusing her of hurting baby's. Last week Patient told life insurance underwriter that her brother Parker was her healthcare proxy; patient's sister Danielle confirm this. [employer] called Parker on 01/10 in order to collect information, collateral to further assess if patient is safe to return to the community since she remains adamant about being discharged. Patient's brother her expressed that he is very concerned and feels that if she is not treated, getting back on medications she will end up quickly worsening. He said that 10 years ago following [facility] admission, she emerged doing much better and remained so on medication for most of the next decade. Parker thinks patient may have been on a community Adan. He only recently learned that she stopped taking her medications about a year ago. He agrees with Danielle that patient has slowly been decompensating over the past few months. Over the past few weeks, she has been expressing paranoid delusions saying that she is being scanned by electronic scanners... And making comments about satanic rituals going on in her apartment. Reports she has numerous body complaints about her body parts not functioning though she is always found to be in good medical condition; saying that her skin is black... She called [employer] (who oversees her apartment) and complained that there was something bad in her apartment, de Karla activities, blue light coming from the haas, something trying to imprint on her, something about hurting baby's... He said [employer] came over to inspect but nothing was found. Her brother reports that this past week, she also called 911 saying she was being attacked demonically, satanic rituals in her apartment; the police came up but of again found nothing. Parker says he has the police report and explained to his sister that she is not well, that she needs medication however patient denied there was anything wrong, even denied that she had called 911... Patient asked Parker to bring her to the hospital for neck pain during which time patient was placed Section 12. Patient's brother reiterates that if she is not treated with medication he is afraid she will continue to get worse; says she has been saying she does not want to go back to her apartment, but wants to live with their mother, which Parker says is not an option. Reason for continued inpatient stay Substantial Risk for: inability to function Time Spent With Patient Time: Total time managing care of this patient today ____ minutes.
[2023-01-19 17:18] VITALS: BP 138/70; PULSE 89; RESP 16; TEMP 36; O2SAT 97
[2023-01-20 09:00] VITALS: BP 136/77; PULSE 82; RESP 16; TEMP 36.3; O2SAT 94
--- NOTE | 2023-01-20 10:36 | HO.PSYCHPN ---
Subjective Subjective Date of Service: 01/20/23 Reason For Visit: F29 unspecified psychosis Interim History: Met with patient; discussed with team Patient refused to talk with selling underwriter today saying it is only 1 thing she wants his discharge otherwise she has nothing to say. Patient's therapist called again and asked if she could come to visit patient on the unit; patient again gave permission for selling underwriter to talk with therapist and asked if selling underwriter would help facilitate her coming to the unit. Social Work was able to get in touch with patient's friend in the community who corroborates with family's concern; she feels like she has completely lost her friend. Patient has been calling this particular friend saying she wants to live with her however friend says absolutely not. Diagnostics Vital Signs (24Hr): Vital Signs - 24 hr 01/19/23 17:18 01/20/23 09:00 Temperature 96.8 F 97.3 F Pulse Rate 89 82 Respiratory Rate 16 16 Blood Pressure 138/70 136/77 Pulse Oximetry 97 94 Oxygen Delivery Method Room Air Room Air BMI result Body Mass Index 22.3 Medications Medications Current Medications Acetaminophen (Acetaminophen 325 Mg Tablet) 650 mg PO Q6H PRN PRN Reason: Headache/Pain Mild Scale (1-3) Al Hydroxide/Mg Hydroxide (Magnesium Hydrox/Alum Hydrox 30 Ml Oral.Susp) 30 ml PO Q6H PRN PRN Reason: Heartburn/Nausea Apixaban (Apixaban 2.5 Mg Tablet) 2.5 mg PO BID MARITA Last Admin: 01/20/23 08:47 Dose: Not Given Benzocaine (Throat Lozenge, Medicated Lozenge) 1 lozenge MUCOUS MEM Q2H PRN PRN Reason: Sore Throat Lorazepam (Lorazepam 1 Mg Tablet) 1 mg PO BID PRN PRN Reason: anxiety/restlessness Last Admin: 01/18/23 19:43 Dose: 1 mg Magnesium Hydroxide (Milk Of Magnesia 30 Ml Oral.Susp) 30 ml PO DAILY PRN PRN Reason: Constipation Trazodone HCl (Trazodone Hcl 50 Mg Tablet) 50 mg PO BEDTIME MRX1 PRN PRN Reason: Insomnia Allergies Allergies Allergy/AdvReac Type Severity Reaction Status Date / Time amoxicillin Allergy Unknown Verified 01/08/23 03:36 codeine Allergy Unknown Verified 01/08/23 03:36 diphenhydramine Allergy Unknown Verified 01/08/23 03:36 [From Benadryl] Assessment & Plan Assessment & Plan (1) Schizophrenia: Status: Acute Code(s): F20.9 - Schizophrenia, unspecified Assessment and Plan: 01/18 CTP 01/19 not really able to engage patient - Plan HPI: Patient is a 67-year-old female with history of schizophrenia, history of PE (2019) who presents after her brother took patient to ED for worsening paranoid delusions and AVH in the face of increased psychosocial stressors including her father's recent . In [place] ED patient was vocalizing that she is worried the FBI is out to get her; reported to emergency room staff she was seeing demons and spirits, feeling unsafe in her apartment due to a demon attack, seen flashing lights? and that the demons were demanding to leave her apartment and that she feels afraid in her apartment ? she also said that she is declining in health and unable to eat or sleep. At 1 point patient was agitated and got Haldol IM. Told ED provider she stopped Risperdal because she was feeling foggy; at a different time she told staff it was making her legs restless. Impression: pt has hx of psychotic disorder and admission to [facility]; however, she's been stable for 10 years on Risperdal (and possibly remained so after she reportedly discontinued it a year or so ago). It seems that the emotional stress of her fathers has triggered return of psychotic symptoms. ED provider and collateral from sister report that patient for past weeks and days patient has been dysregulated by paranoid delusions and AH which are interfering in her life. However, currently on the unit, she is presenting as organized in both speech and behavior, denying any AVH or paranoid thinking and not expressing any delusional ideation. Given patient's history, ED report, her brothers and sisters concern, and refusal to restart antipsychotic medication, will hold onto patient for now to better assess her safety and ability to function in the community. -Reviewed labs from [place] ED: CBC, lytes, BUN/creatinine, calcium, TSH WNL; Negative COVID; UA with elevated leukocyte Estrace however negative nitrate; no report of urinary symptoms; refused to have admission physical. of note, patient reported that she went to [place] ED because of neck pain, choking and swallowing issues; she says these have remained fully resolved (At ED Patient reported she brought up her somatic complaints her doctors and that she had a recent endoscopy, stress test, swallow test all results unremarkable). Hospital course: 01/09 remains without any insight, is irritable and wants discharge; she denies that she ever told ED staff anything about AVH, paranoid thoughts, demons; denies that any of the events reported by ED staff or sister are true. Says she does not have any history psychiatric illness. Patient refused Eliquis Denies that she is on omeprazole or any other medication; does not want to discuss her medical history 01/10 no change in presentation; remains without insight; denies all collateral reports. Refusing Eliquis despite selling underwriter's concern explanation of risks of not taking Eliquis 01/12/23 continue current plan of care. 01/[address] involuntary commitment. Patient continues to have psychotic symptoms and told her therapist that she is currently being accuse by this selling underwriter of wanting to hurt baby's. Patient continues to have no insight. She is afraid to go back to apartment due to paranoid delusions; pt told sister (and this selling underwriter) that she was planning to go stay at her mother's; sister is very afraid for their mothers safety and said if patient is discharged she will immediately pursue a restraining order; she is not taking prescribed Eliquis to prevent pulmonary embolism; patient is presenting with similar symptoms that resulted in past [facility] after she threatened to kill her mother, father and sister. Patient has demonstrated that she is able to be safe and stable in the community on medication and by all accounts, including her own, had a very nice and enjoyable life while on antipsychotic medication. There is a strong concern that patient will continue to further decompensate if she does not get back on antipsychotic medication. 01/15 no change in presentation; no insight, remains adamant about not having any psychiatric illness and that she should be discharged. Says that her family has no concerns about her and not able to tolerate hearing otherwise Reiterated [place]ague warning 01/16 patient remains without insight; continues to refuse all medication 01/17 no change in presentation; will continue to pursue involuntary commitment scheduled for 01/21/23 at 11:00 01/20 no change in presentation; continue with current plan for involuntary commitment Plan: Petition court for involuntary commitment on 01/21/23 at 11:00 for patient's safety -q15 min checks -Continue Eliquis 2.5 mg b.i.d., selling underwriter contacted patient's outpatient prescriber Dr. Nelda Rodriguez [facility] who communicated to selling underwriter that patient is supposed to remain on Eliquis -pt adamantly refuses antipsychotic so none ordered to avoid further irritating patient -does not seem possible to invoke healthcare proxy without sign document COLLATERAL: Patient has a 3 day notice wanting discharge. In order to assess patient's safety and ability to return to the community, selling underwriter obtained collateral from patient's sister Danielle, who knows patient is on the psych unit at [facility] and called the bilingual social worker yesterday to provide information. Franchise Sales Manager did not give out any information. Danielle reports that 10 years ago patient severely decompensated and threatened to kill her and their parents, which resulted in psychiatric hospitalization at a [facility] hospital. Patient was started on Risperdal and afterwards did quite well however was never able to work again and in fact has not been working since the , on disability instead. Danielle reports that they have been concerned about patient for several months, feeling that she's been decompensated little by little and that she is exhibiting the very same behaviors that led to her hospitalization 10 years ago. She says that the past few weeks, patient home health aide and friend have been reaching out to sister, saying that something is willing different about patient and that she needs help, afraid she might hurt herself. Danielle reports that at their father's wake, she went to her brother's car and started screaming; she said her father was trying to pull her out of her body to join him. She corroborates with the report from [place] ED it patient has been expressing paranoid delusions that satanic people, demons are after her that they are shooting a pathway to her neighbors and healing her neighbors but not her... Danielle says patient for currently calls her on the phone screaming over and over; she is insisting that she be relocated, that her sister get the government to relocate her because she is not safe in her apartment, someone is there trying to hurt her, she is hearing babies screaming... And is unable to be redirected or accept Danielle's answers. Danielle says patient was very concerned that her brother was a zombie; said the healthcare person the comes to her house was an imposter... She said that patient has been saying she plans to move in with her mother. Danielle is very fearful of this since patient threatened to kill her mother 10 years ago when she had similarly decompensated and she said that there is no way she will allow patient to live with their mother. Danielle reports that her brother Parker, the one who drove her to the emergency room this past week is the healthcare proxy. Patient's therapist called wanting to talk with selling underwriter; selling underwriter asked patient and patient said yes she wants this selling underwriter to talk with her therapist Neva. Patient continues to refuse all medication including Eliquis. Franchise Sales Manager spoke with Neva, outpatient therapist who has known her since 2011 after she was discharged from [facility]. She reports that patient has never acknowledged any psychiatric illness of any kind. Overall these years patient has remained stable and able to care for self in the community. The sometime patient would make a delusional comment about being electronically scanned daily, and would have some would seem to be somatic physical complaints; otherwise no psychotic symptoms present until now. Therapist thinks patient was taking her medications until about a few months ago. She agrees that the of her father and emotional fall out has worsened symptoms. Therapist has concerns about patient recovering and further decompensating if she remains off medications and said she would recommend that patient get back on medications. Therapist told selling underwriter that patient complained to her that selling underwriter and staff for lying to her and accusing her of hurting baby's. Last week Patient told selling underwriter that her brother Parker was her healthcare proxy; patient's sister Danielle confirm this. Franchise Sales Manager called Parker on 01/10 in order to collect information, collateral to further assess if patient is safe to return to the community since she remains adamant about being discharged. Patient's brother her expressed that he is very concerned and feels that if she is not treated, getting back on medications she will end up quickly worsening. He said that 10 years ago following [facility] hospital admission, she emerged doing much better and remained so on medication for most of the next decade. Parker thinks patient may have been on a community Adan. He only recently learned that she stopped taking her medications about a year ago. He agrees with Danielle that patient has slowly been decompensating over the past few months. Over the past few weeks, she has been expressing paranoid delusions saying that she is being scanned by electronic scanners... And making comments about satanic rituals going on in her apartment. Reports she has numerous body complaints about her body parts not functioning though she is always found to be in good medical condition; saying that her skin is black... She called [employer] (who oversees her apartment) and complained that there was something bad in her apartment, de Karla activities, blue light coming from the haas, something trying to imprint on her, something about hurting baby's... He said [employer] came over to inspect but nothing was found. Her brother reports that this past week, she also called 911 saying she was being attacked demonically, satanic rituals in her apartment; the police came up but of again found nothing. Parker says he has the police report and explained to his sister that she is not well, that she needs medication however patient denied there was anything wrong, even denied that she had called 911... Patient asked Parker to bring her to the hospital for neck pain during which time patient was placed [address]. Patient's brother reiterates that if she is not treated with medication he is afraid she will continue to get worse; says she has been saying she does not want to go back to her apartment, but wants to live with their mother, which Parker says is not an option. Reason for continued inpatient stay Substantial Risk for: inability to function Time Spent With Patient Time: Total time managing care of this patient today ____ minutes.
[2023-01-20 18:00] VITALS: RESP 16
[2023-01-21 08:05] VITALS: BP 116/56; PULSE 78; RESP 18; O2SAT 100
--- NOTE | 2023-01-21 10:00 | P.PNPSI_ITS ---
Subjective Subjective Date of Service: 01/21/23 Reason For Visit: F29 unspecified psychosis Interim History: briefly met with patient; discussed with team pt refused to talk with promotion writer court today and pt involuntarily committed with substituted judgment pt c/o to ancillary staff burning sensation in leg on 01/11; will clarify which leg and order doppler Mental Status Exam Mental Status Exam Narrative: Pt is alert and oriented; behavior is irritable, not cooperative; patient is not in distress; dressed in hospital gown over casual attire, adequately groomed; mood is described as irritable and affect congruent; eye contact appropriate; Speech is normal rate, volume and prosody and not pressured; no psychomotor agitation/retardation present; thought process is organized and goal directed; Thought content is on discharge; otherwise pertinent to relevant topics; did not express any paranoid, delusional thinking; denies any SI/HI. Denies AVH. Patients insight and judgment are impaired Diagnostics Vital Signs (24Hr): Vital Signs - 24 hr 01/20/23 18:00 01/21/23 08:05 Pulse Rate 78 Respiratory Rate 16 18 Blood Pressure 116/56 L Pulse Oximetry 100 Oxygen Delivery Method Room Air BMI result Body Mass Index 22.3 Medications Medications Current Medications Acetaminophen (Acetaminophen 325 Mg Tablet) 650 mg PO Q6H PRN PRN Reason: Headache/Pain Mild Scale (1-3) Al Hydroxide/Mg Hydroxide (Magnesium Hydrox/Alum Hydrox 30 Ml Oral.Susp) 30 ml PO Q6H PRN PRN Reason: Heartburn/Nausea Apixaban (Apixaban 2.5 Mg Tablet) 2.5 mg PO BID MARITA Last Admin: 01/21/23 07:45 Dose: Not Given Benzocaine (Throat Lozenge, Medicated Lozenge) 1 lozenge MUCOUS MEM Q2H PRN PRN Reason: Sore Throat Lorazepam (Lorazepam 1 Mg Tablet) 1 mg PO BID PRN PRN Reason: anxiety/restlessness Last Admin: 01/18/23 19:43 Dose: 1 mg Magnesium Hydroxide (Milk Of Magnesia 30 Ml Oral.Susp) 30 ml PO DAILY PRN PRN Reason: Constipation Trazodone HCl (Trazodone Hcl 50 Mg Tablet) 50 mg PO BEDTIME MRX1 PRN PRN Reason: Insomnia Allergies Allergies Allergy/AdvReac Type Severity Reaction Status Date / Time amoxicillin Allergy Unknown Verified 01/08/23 03:36 codeine Allergy Unknown Verified 01/08/23 03:36 diphenhydramine Allergy Unknown Verified 01/08/23 03:36 [From Benadryl] Assessment & Plan Assessment & Plan (1) Schizophrenia: Status: Acute Code(s): F20.9 - Schizophrenia, unspecified Assessment and Plan: 01/18 CTP 01/19 not really able to engage patient - Plan HPI: Patient is a 67-year-old female with history of schizophrenia, history of PE (2019) who presents after her brother took patient to ED for worsening paranoid delusions and AVH in the face of increased psychosocial stressors including her father's recent . In [place] [facility] patient was vocalizing that she is worried the FBI is out to get her; reported to emergency room staff she was seeing demons and spirits, feeling unsafe in her apartment due to a demon attack, seen flashing lights? and that the demons were demanding to leave her a partment and that she feels afraid in her apartment ? she also said that she is declining in health and unable to eat or sleep. At 1 point patient was agitated and got Haldol IM. Told ED provider she stopped Risperdal because she was feeling foggy; at a different time she told staff it was making her legs restless. Impression: pt has hx of psychotic disorder and admission to [facility]; however, she's been stable for 10 years on Risperdal (and possibly remained so after she reportedly discontinued it a year or so ago). It seems that the emotional stress of her fathers has triggered return of psychotic symptoms. ED provider and collateral from sister report that patient for past weeks and days patient has been dysregulated by paranoid delusions and AH which are interfering in her life. However, currently on the unit, she is presenting as organized in both speech and behavior, denying any AVH or paranoid thinking and not expressing any delusional ideation. Given patient's history, ED report, her brothers and sisters concern, and refusal to restart antipsychotic medication, will hold onto patient for now to better assess her safety and ability to function in the community. -Reviewed labs from [place] ED: CBC, lytes, BUN/creatinine, calcium, TSH WNL; Negative COVID; UA with elevated leukocyte Estrace however negative nitrate; no report of urinary symptoms; refused to have admission physical. of note, patient reported that she went to [place] ED because of neck pain, choking and swallowing issues; she says these have remained fully resolved (At ED Patient reported she brought up her somatic complaints her doctors and that she had a recent endoscopy, stress test, swallow test all results unremarkable). Hospital course: 01/09 remains without any insight, is irritable and wants discharge; she denies that she ever told ED staff anything about AVH, paranoid thoughts, demons; denies that any of the events reported by ED staff or sister are true. Says she does not have any history psychiatric illness. Patient refused Eliquis Denies that she is on omeprazole or any other medication; does not want to discuss her medical history 01/10 no change in presentation; remains without insight; denies all collateral reports. Refusing Eliquis despite promotion writer's concern explanation of risks of not taking Eliquis 01/12/23 continue current plan of care. 01/[address] involuntary commitment. Patient continues to have psychotic symptoms and told her therapist that she is currently being accuse by this promotion writer of wanting to hurt baby's. Patient continues to have no insight. She is afraid to go back to apartment due to paranoid delusions; pt told sister (and this promotion writer) that she was planning to go stay at her mother's; sister is very afraid for their mothers safety and said if patient is discharged she will immediately pursue a restraining order; she is not taking prescribed Eliquis to prevent pulmonary embolism; patient is presenting with similar symptoms that resulted in past involuntary commitment at a [facility] after she threatened to kill her mother, father and sister. Patient has demonstrated that she is able to be safe and stable in the community on medication and by all accounts, including her own, had a very nice and enjoyable life while on antipsychotic medication. There is a strong concern that patient will continue to further decompensate if she does not get back on antipsychotic medication. 01/15 no change in presentation; no insight, remains adamant about not having any psychiatric illness and that she should be discharged. Says that her family has no concerns about her and not able to tolerate hearing otherwise Reiterated [place]ague warning 01/16 patient remains without insight; continues to refuse all medication 01/17 no change in presentation; will continue to pursue involuntary commitment scheduled for 01/21/23 at 11:00 01/20 no change in presentation; continue with current plan for involuntary commitment 01/21 pt involuntarily committed; will see if can gather collateral from past prescriber to clarify med trials -came to writers attention that pt c/o to ancillary staff burning sensation in leg on 01/11; will clarify which leg and order doppler Plan: Involuntary commitment and substituted judgment -q15 min checks -Continue Eliquis 2.5 mg b.i.d., promotion writer contacted patient's outpatient prescriber Dr. Nelda Rodriguez [facility] who communicated to promotion writer that patient is supposed to remain on Eliquis court ordered substituted judgment: risperdal fluphenazine Haloperidol Perphenazine Abilify Clozapine Olanzapine Paliperidione Seroquel Ziprasidone COLLATERAL: Patient has a 3 day notice wanting discharge. In order to assess patient's safety and ability to return to the community, promotion writer obtained collateral from patient's sister Danielle, who knows patient is on the psych unit at [facility] [place] and called the social security assessor yesterday to provide information. Street Light Inspector did not give out any information. Danielle reports that 10 years ago patient severely decompensated and threatened to kill her and their parents, which resulted in psychiatric hospitalization at a [facility]. Patient was started on Risperdal and afterwards did quite well however was never able to work again and in fact has not been working since the , on disability instead. Danielle reports that they have been concerned about patient for several months, feeling that she's been decompensated little by little and that she is exhibiting the very same behaviors that led to her hospitalization 10 years ago. She says that the past few weeks, patient home health aide and friend have been reaching out to sister, saying that something is willing different about patient and that she needs help, afraid she might hurt herself. Danielle reports that at their father's wake, she went to her brother's car and started screaming; she said her father was trying to pull her out of her body to join him. She corroborates with the report from [facility] it patient has been expressing paranoid delusions that satanic people, demons are after her that they are shooting a pathway to her neighbors and healing her neighbors but not her... Danielle says patient for currently calls her on the phone screaming over and over ; she is insisting that she be relocated, that her sister get the government to relocate her because she is not safe in her apartment, someone is there trying to hurt her, she is hearing babies screaming... And is unable to be redirected or accept Danielle's answers. Danielle says patient was very concerned that her brother was a zombie; said the healthcare person the comes to her house was an imposter... She said that patient has been saying she plans to move in with her mother. Danielle is very fearful of this since patient threatened to kill her mother 10 years ago when she had similarly decompensated and she said that there is no way she will allow patient to live with their mother. Danielle reports that her brother Parker, the one who drove her to the emergency room this past week is the healthcare proxy. Patient's therapist called wanting to talk with promotion writer; promotion writer asked patient and patient said yes she wants this promotion writer to talk with her therapist Neva. Patient continues to refuse all medication including Eliquis. Street Light Inspector spoke with Neva, outpatient therapist who has known her since 2011 after she was discharged from [facility]. She reports that patient has never acknowledged any psychiatric illness of any kind. Overall these years patient has remained stable and able to care for self in the community. The sometime patient would make a delusional comment about being electronically scanned daily, and would have some would seem to be somatic physical complaints; otherwise no psychotic symptoms present until now. Crow conteh thinks patient was taking her medications until about a few months ago. She agrees that the of her father and emotional fall out has worsened symptoms. Therapist has concerns about patient recovering and further decompensating if she remains off medications and said she would recommend that patient get back on medications. Therapist told promotion writer that patient complained to her that promotion writer and staff for lying to her and accusing her of hurting baby's. Last week Patient told promotion writer that her brother Parker was her healthcare proxy; patient's sister Danielle confirm this. Street Light Inspector called Parker on 01/10 in order to collect information, collateral to further assess if patient is safe to return to the community since she remains adamant about being discharged. Patient's brother her expressed that he is very concerned and feels that if she is not treated, getting back on medications she will end up quickly worsening. He said that 10 years ago following [facility] admission, she emerged doing much better and remained so on medication for most of the next decade. Parker thinks patient may have been on a community Adan. He only recently learned that she stopped taking her medications about a year ago. He agrees with Danielle that patient has slowly been decompensating over the past few months. Over the past few weeks, she has been expressing paranoid delusions saying that she is being scanned by electronic scanners... And making comments about satanic rituals going on in her apartment. Reports she has numerous body complaints about her body parts not functioning though she is always found to be in good medical condition; saying that her skin is black... She called [employer] (who oversees her apartment) and complained that there was something bad in her apartment, de Karla activities, blue light coming from the haas, something trying to imprint on her, something about hurting baby's... He said [employer] came over to inspect but nothing was found. Her brother reports that this past week, she also called 911 saying she was being attacked demonically, satanic rituals in her apartment; the police came up but of again found nothing. Parker says he has the police report and explained to his sister that she is not well, that she needs medication however patient denied there was anything wrong, even denied that she had called 911... Patient asked Parker to bring her to the hospital for neck pain during which time patient was placed [address]. Patient's brother reiterates that if she is not treated with medication he is afraid she will continue to get worse; says she has been saying she does not want to go back to her apartment, but wants to live with their mother, which Parker says is not an option. Reason for continued inpatient stay Substantial Risk for: inability to function Time Spent With Patient Time: Total time managing care of this patient today ____ minutes.
[2023-01-21 16:59] VITALS: BP 146/71; PULSE 82; RESP 18; O2SAT 98
--- NOTE | 2023-01-21 19:41 | PM.EVENT ---
Event Note Date of Service: 01/21/23 Event Note: I was asked to see this patient in regards to hip pain. Patient states that this has been going on for awhile although she does not know exactly what a while but has seen her PCP, and had imaging done but has not had a follow-up appointment yet. She does not want any further imaging done while she is inpatient and states that she has not requested anything further to be done about her hip pain. psychiatrist notified Time Spent With Patient Time: Total time managing care of this patient today ____ minutes.
[2023-01-21] MEDS: LORazepam 1 MG TABLET PO (21:20)
--- NOTE | 2023-01-22 | PC.NURSE ---
Patient refused venous doppler and xrays that were ordered.
[2023-01-22 06:00] VITALS: BP 148/78; PULSE 82; RESP 18; TEMP 36.7; O2SAT 96
--- NOTE | 2023-01-22 09:29 | HO.PSYCHPN ---
Subjective Subjective Date of Service: 01/22/23 Reason For Visit: F29 unspecified psychosis Interim History: met with patient; discussed with team pt initially upset, saying she does not belong her, all said about her...not sure if the woman in the video was actually her sister...Bariatric Coordinator discussed court order and medications...She then said she talked with PCP who told her he does not want her to take any mediation and wants her discharged immediately (pt gave singer songwriter his name and number and asked singer songwriter to call him about this). pt did calm down and shared the story of events leading up to her admission 10 years ago. Clear that pt has never had any insight into her behaviors and it was painful to hear how much she suffered, having no idea why she was jailed, accused of things, put in psych unit...she shares how this experience is reminding her of past. Mental Status Exam Mental Status Exam Narrative: Pt is alert and oriented; behavior is irritable, not cooperative; patient is not in distress; dressed in hospital gown over casual attire, adequately groomed; mood is described as irritable and affect congruent; eye contact appropriate; Speech is normal rate, volume and prosody and not pressured; no psychomotor agitation/retardation present; thought process is organized and goal directed; Thought content is on discharge; otherwise pertinent to relevant topics; did not express any paranoid, delusional thinking; denies any SI/HI. Denies AVH. Patients insight and judgment are impaired Diagnostics Vital Signs (24Hr): Vital Signs - 24 hr 01/21/23 16:59 Pulse Rate 82 Respiratory Rate 18 Blood Pressure 146/71 H Pulse Oximetry 98 Oxygen Delivery Method Room Air BMI result Body Mass Index 22.3 Medications Medications Current Medications Acetaminophen (Acetaminophen 325 Mg Tablet) 650 mg PO Q6H PRN PRN Reason: Headache/Pain Mild Scale (1-3) Al Hydroxide/Mg Hydroxide (Magnesium Hydrox/Alum Hydrox 30 Ml Oral.Susp) 30 ml PO Q6H PRN PRN Reason: Heartburn/Nausea Apixaban (Apixaban 2.5 Mg Tablet) 2.5 mg PO BID MARITA Last Admin: 01/22/23 09:22 Dose: Not Given Benzocaine (Throat Lozenge, Medicated Lozenge) 1 lozenge MUCOUS MEM Q2H PRN PRN Reason: Sore Throat Lorazepam (Lorazepam 1 Mg Tablet) 1 mg PO BID PRN PRN Reason: anxiety/restlessness Last Admin: 01/21/23 21:20 Dose: 1 mg Magnesium Hydroxide (Milk Of Magnesia 30 Ml Oral.Susp) 30 ml PO DAILY PRN PRN Reason: Constipation Polyethyl Glycol/Propylene Glycol (Propylene Glycol/Peg 400 Gel Eye Drops 10ml) 1 drop EYE-BOTH BID PRN PRN Reason: dry eyes Trazodone HCl (Trazodone Hcl 50 Mg Tablet) 50 mg PO BEDTIME MRX1 PRN PRN Reason: Insomnia Allergies Allergies Allergy/AdvReac Type Severity Reaction Status Date / Time amoxicillin Allergy Unknown Verified 01/08/23 03:36 codeine Allergy Unknown Verified 01/08/23 03:36 diphenhydramine Allergy Unknown Verified 01/08/23 03:36 [From Yoselyn] Assessment & Plan Assessment & Plan (1) Schizophrenia: Status: Acute Code(s): F20.9 - Schizophrenia, unspecified Assessment and Plan: 01/18 CTP 01/19 not really able to engage patient - Plan HPI: Patient is a 67-year-old female with history of schizophrenia, history of PE (2019) who presents after her brother took patient to ED for worsening paranoid delusions and AVH in the face of increased psychosocial stressors including her father's recent . In [facility] patient was vocalizing that she is worried the FBI is out to get her; reported to emergency room staff she was seeing demons and spirits, feeling unsafe in her apartment due to a demon attack, seen flashing lights? and that the demons were demanding to leave her apartment and that she feels afraid in her apartment ? she also said that she is declining in health and unable to eat or sleep. At 1 point patient was agitated and got Haldol IM. Told ED provider she stopped Risperdal because she was feeling foggy; at a different time she told staff it was making her legs restless. Impression: pt has hx of psychotic disorder and [facility]; however, she's been stable for 10 years on Risperdal (and possibly remained so after she reportedly discontinued it a year or so ago). It seems that the emotional stress of her fathers has triggered return of psychotic symptoms. ED provider and collateral from sister report that patient for past weeks and days patient has been dysregulated by paranoid delusions and AH which are interfering in her life. However, currently on the unit, she is presenting as organized in both speech and behavior, denying any AVH or paranoid thinking and not expressing any delusional ideation. Given patient's history, ED report, her brothers and sisters concern, and refusal to restart antipsychotic medication, will hold onto patient for now to better assess her safety and ability to function in the community. -Reviewed labs from [facility]: CBC, lytes, BUN/creatinine, calcium, TSH WNL; Negative COVID; UA with elevated leukocyte Estrace however negative nitrate; no report of urinary symptoms; refused to have admission physical. of note, patient reported that she went to [facility] because of neck pain, choking and swallowing issues; she says these have remained fully resolved (At ED Patient reported she brought up her somatic complaints her doctors and that she had a recent endoscopy, stress test, swallow test all results unremarkable). Hospital course: 01/09 remains without any insight, is irritable and wants discharge; she denies that she ever told ED staff anything about AVH, paranoid thoughts, demons; denies that any of the events reported by ED staff or sister are true. Says she does not have any history psychiatric illness. Patient refused Eliquis Denies that she is on omeprazole or any other medication; does not want to discuss her medical history 01/10 no change in presentation; remains without insight; denies all collateral reports. Refusing Eliquis despite singer songwriter's concern explanation of risks of not taking Eliquis 01/12/23 continue current plan of care. 01/[address] involuntary commitment. Patient continues to have psychotic symptoms and told her therapist that she is currently being accuse by this singer songwriter of wanting to hurt baby's. Patient continues to have no insight. She is afraid to go back to apartment due to paranoid delusions; pt told sister (and this singer songwriter) that she was planning to go stay at her mother's; sister is very afraid for their mothers safety and said if patient is discharged she will immediately pursue a restraining order; she is not taking prescribed Eliquis to prevent pulmonary embolism; patient is presenting with similar symptoms that resulted in past [facility] after she threatened to kill her mother, father and sister. Patient has demonstrated that she is able to be safe and stable in the community on medication and by all accounts, including her own, had a very nice and enjoyable life while on antipsychotic medication. There is a strong concern that patient will continue to further decompensate if she does not get back on antipsychotic medication. 01/15 no change in presentation; no insight, remains adamant about not having any psychiatric illness and that she should be discharged. Says that her family has no concerns about her and not able to tolerate hearing otherwise Reiterated [place] warning 01/16 patient remains without insight; continues to refuse all medication 01/17 no change in presentation; will continue to pursue involuntary commitment scheduled for 01/21/23 at 11:00 01/20 no change in presentation; continue with current plan for involuntary commitment 01/21 pt involuntarily committed; will see if can gather collateral from past prescriber to clarify med trials -came to writers attention that pt c/o to ancillary staff burning sensation in leg on 01/11; will clarify which leg and order doppler 01/22 no change in presentation; pt agreed to do doppler but then refused. Plan: Involuntary commitment and substituted judgment -q15 min checks -Continue Eliquis 2.5 mg b.i.d., singer songwriter contacted patient's outpatient prescriber Dr. Nelda Rodriguez [facility] who communicated to singer songwriter that patient is supposed to remain on Eliquis court ordered substituted judgment: risperdal fluphenazine Haloperidol Perphenazine Abilify Clozapine Olanzapine Paliperidione Seroquel Ziprasidone COLLATERAL: Patient has a 3 day notice wanting discharge. In order to assess patient's safety and ability to return to the community, singer songwriter obtained collateral from patient's sister Danielle, who knows patient is on the psych unit at [facility] and called the social worker health services yesterday to provide information. Bariatric Coordinator did not give out any information. Danielle reports that 10 years ago patient severely decompensated and threatened to kill her and their parents, which [facility]. Patient was started on Risperdal and afterwards did quite well however was never able to work again and in fact has not been working since the , on disability instead. Danielle reports that they have been concerned about patient for several months, feeling that she's been decompensated little by little and that she is exhibiting the very same behaviors that led to her hospitalization 10 years ago. She says that the past few weeks, patient home health aide and friend have been reaching out to sister, saying that something is willing different about patient and that she needs help, afraid she might hurt herself. Danielle reports that at their father's wake, she went to her brother's car and started screaming; she said her father was trying to pull her out of her body to join him. She corroborates with the report from [facility] it patient has been expressing paranoid delusions that satanic people, demons are after her that they are shooting a pathway to her neighbors and healing her neighbors but not her... Danielle says patient for currently calls her on the phone screaming over and over; she is insisting that she be relocated, that her sister get the government to relocate her because she is not safe in her apartment, someone is there trying to hurt her, she is hearing babies screaming... And is unable to be redirected or accept Danielle's answers. Danielle says patient was very concerned that her brother was a zombie; said the healthcare person the comes to her house was an imposter... She said that patient has been saying she plans to move in with her mother. Danielle is very fearful of this since patient threatened to kill her mother 10 years ago when she had similarly decompensated and she said that there is no way she will allow patient to live with their mother. Danielle reports that her brother Parker, the one who drove her to the emergency room this past week is the healthcare proxy. Patient's therapist called wanting to talk with singer songwriter; singer songwriter asked patient and patient said yes she wants this singer songwriter to talk with her therapist Neva. Patient continues to refuse all medication including Eliquis. Bariatric Coordinator spoke with Neva, outpatient therapist who has known her since 2011 after she was discharged from [facility]. She reports that patient has never acknowledged any psychiatric illness of any kind. Overall these years patient has remained stable and able to care for self in the community. The sometime patient would make a delusional comment about being electronically scanned daily, and would have some would seem to be somatic physical complaints; otherwise no psychotic symptoms present until now. Therapist thinks patient was taking her medications until about a few months ago. She agrees that the of her father and emotional fall out has worsened symptoms. Therapist has concerns about patient recovering and further decompensating if she remains off medications and said she would recommend that patient get back on medications. Therapist told singer songwriter that patient complained to her that singer songwriter and staff for lying to her and accusing her of hurting baby's. Last week Patient told singer songwriter that her brother Parker was her healthcare proxy; patient's sister Danielle confirm this. Bariatric Coordinator called Parker on 01/10 in order to collect information, collateral to further assess if patient is safe to return to the community since she remains adamant about being discharged. Patient's brother her expressed that he is very concerned and feels that if she is not treated, getting back on medications she will end up quickly worsening. He said that 10 years ago following [facility], she emerged doing much better and remained so on medication for most of the next decade. Parker thinks patient may have been on a community Adan. He only recently learned that she stopped taking her medications about a year ago. He agrees with Danielle that patient has slowly been decompensating over the past few months. Over the past few weeks, she has been expressing paranoid delusions saying that she is being scanned by electronic scanners... And making comments about satanic rituals going on in her apartment. Reports she has numerous body complaints about her body parts not functioning though she is always found to be in good medical condition; saying that her skin is black... She called [employer] (who oversees her apartment) and complained that there was something bad in her apartment, de Karla activities, blue light coming from the haas, something trying to imprint on her, something about hurting baby's... He said [employer] came over to inspect but nothing was found. Her brother reports that this past week, she also called 911 saying she was being attacked demonically, satanic rituals in her apartment; the police came up but of again found nothing. Parker says he has the police report and explained to his sister that she is not well, that she needs medication however patient denied there was anything wrong, even denied that she had called 911... Patient asked Parker to bring her to the hospital for neck pain during which time patient was placed [address]. Patient's brother reiterates that if she is not treated with medication he is afraid she will continue to get worse; says she has been saying she does not want to go back to her apartment, but wants to live with their mother, which Parker says is not an option. Patient educated on: diagnosis and medication risk/benefits Informed Consent: does not understand Reason for continued inpatient stay Substantial Risk for: inability to function Time Spent With Patient Time: Total time managing care of this patient today ____ minutes.
[2023-01-22 15:15] VITALS: BP 116/91; PULSE 91
[2023-01-23 06:00] VITALS: BP 144/75; PULSE 80; RESP 18; O2SAT 98
--- NOTE | 2023-01-23 17:14 | HO.PSYCHPN ---
Subjective Subjective Date of Service: 01/23/23 Reason For Visit: F29 unspecified psychosis Interim History: Met with patient; discussed with team Patient irritable and reiterated that her outpatient doctor said that she was to be immediately discharged and that he did not want her taking any medication at all. Jet Operator reviewed court order which patient was upset about. She does not want to take any medication but did ask about the potential side effects of Zyprexa and indicated she prefer that over Risperdal since Risperdal had side effects. Patient again asked why administrative underwriter believes she needed to be hospitalized and administrative underwriter again discussed how multiple people in the community including, her brother, her sister, the police and emergency department staff at [place] all had nearly identical reports, D telling patient's presenting symptoms. Patient said that none of that was true and that people are referring to something that happened 10 years ago. Patient said she never said demons are in her apartment. However she did say that there was something threatening in her apartment. She said she does not know what it was but it threatened her and scared her. She heard the threat say were going to rape you and to get out of the house. She said also that her skin on her arms was turned black. That is what made patient feel unsafe and want to leave her apartment. Mental Status Exam Mental Status Exam Narrative: Pt is alert and oriented; behavior is irritable, not cooperative; patient is not in distress; dressed in hospital gown over casual attire, adequately groomed; mood is described as irritable and affect congruent; eye contact appropriate; Speech is normal rate, volume and prosody and not pressured; no psychomotor agitation/retardation present; thought process is organized and goal directed; Thought content is on discharge; otherwise pertinent to relevant topics; did not express any paranoid, delusional thinking; denies any SI/HI. Denies current AVH however endorse that she had auditory hallucinations in her apartment. Patients insight and judgment are impaired Diagnostics Vital Signs (24Hr): Vital Signs - 24 hr 01/23/23 06:00 Pulse Rate 80 Respiratory Rate 18 Blood Pressure 144/75 H Pulse Oximetry 98 Oxygen Delivery Method Room Air BMI result Body Mass Index 22.3 Medications Medications Current Medications Acetaminophen (Acetaminophen 325 Mg Tablet) 650 mg PO Q6H PRN PRN Reason: Headache/Pain Mild Scale (1-3) Al Hydroxide/Mg Hydroxide (Magnesium Hydrox/Alum Hydrox 30 Ml Oral.Susp) 30 ml PO Q6H PRN PRN Reason: Heartburn/Nausea Apixaban (Apixaban 2.5 Mg Tablet) 2.5 mg PO BID MARITA Last Admin: 01/23/23 08:49 Dose: Not Given Benzocaine (Throat Lozenge, Medicated Lozenge) 1 lozenge MUCOUS MEM Q2H PRN PRN Reason: Sore Throat Lorazepam (Lorazepam 1 Mg Tablet) 1 mg PO BID PRN PRN Reason: anxiety/restlessness Last Admin: 01/21/23 21:20 Dose: 1 mg Magnesium Hydroxide (Milk Of Magnesia 30 Ml Oral.Susp) 30 ml PO DAILY PRN PRN Reason: Constipation Polyethyl Glycol/Propylene Glycol (Propylene Glycol/Peg 400 Gel Eye Drops 10ml) 1 drop EYE-BOTH BID PRN PRN Reason: dry eyes Trazodone HCl (Trazodone Hcl 50 Mg Tablet) 50 mg PO BEDTIME MRX1 PRN PRN Reason: Insomnia Allergies Allergies Allergy/AdvReac Type Severity Reaction Status Date / Time amoxicillin Allergy Unknown Verified 01/08/23 03:36 codeine Allergy Unknown Verified 01/08/23 03:36 diphenhydramine Allergy Unknown Verified 01/08/23 03:36 [From Benadryl] Assessment & Plan Assessment & Plan (1) Schizophrenia: Status: Acute Code(s): F20.9 - Schizophrenia, unspecified Assessment and Plan: 01/18 CTP 01/19 not really able to engage patient - Plan HPI: Patient is a 67-year-old female with history of schizophrenia, history of PE (2019) who presents after her brother took patient to ED for worsening paranoid delusions and AVH in the face of increased psychosocial stressors including her father's recent . In [place] ED patient was vocalizing that she is worried the FBI is out to get her; reported to emergency room staff she was seeing demons and spirits, feeling unsafe in her apartment due to a demon attack, seen flashing lights? and that the demons were demanding to leave her apartment and that she feels afraid in her apartment ? she also said that she is declining in health and unable to eat or sleep. At 1 point patient was agitated and got Haldol IM. Told ED provider she stopped Risperdal because she was feeling foggy; at a different time she told staff it was making her legs restless. Impression: pt has hx of psychotic disorder and admission to [facility]; however, she's been stable for 10 years on Risperdal (and possibly remained so after she reportedly discontinued it a year or so ago). It seems that the emotional stress of her fathers has triggered return of psychotic symptoms. ED provider and collateral from sister report that patient for past weeks and days patient has been dysregulated by paranoid delusions and AH which are interfering in her life. However, currently on the unit, she is presenting as organized in both speech and behavior, denying any AVH or paranoid thinking and not expressing any delusional ideation. Given patient's history, ED report, her brothers and sisters concern, and refusal to restart antipsychotic medication, will hold onto patient for now to better assess her safety and ability to function in the community. -Reviewed labs from [place] ED: CBC, lytes, BUN/creatinine, calcium, TSH WNL; Negative COVID; UA with elevated leukocyte Estrace however negative nitrate; no report of urinary symptoms; refused to have admission physical. of note, patient reported that she went to [place] ED because of neck pain, choking and swallowing issues; she says these have remained fully resolved (At ED Patient reported she brought up her somatic complaints her doctors and that she had a recent endoscopy, stress test, swallow test all results unremarkable). Hospital course: 01/09 remains without any insight, is irritable and wants discharge; she denies that she ever told ED staff anything about AVH, paranoid thoughts, demons; denies that any of the events reported by ED staff or sister are true. Says she does not have any history psychiatric illness. Patient refused Eliquis Denies that she is on omeprazole or any other medication; does not want to discuss her medical history 01/10 no change in presentation; remains without insight; denies all collateral reports. Refusing Eliquis despite administrative underwriter's concern explanation of risks of not taking Eliquis 01/12/23 continue current plan of care. 01/[address] involuntary commitment. Patient continues to have psychotic symptoms and told her therapist that she is currently being accuse by this administrative underwriter of wanting to hurt baby's. Patient continues to have no insight. She is afraid to go back to apartment due to paranoid delusions; pt told sister (and this administrative underwriter) that she was planning to go stay at her mother's; sister is very afraid for their mothers safety and said if patient is discharged she will immediately pursue a restraining order; she is not taking prescribed Eliquis to prevent pulmonary embolism; patient is presenting with similar symptoms that resulted in past [facility] after she threatened to kill her mother, father and sister. Patient has demonstrated that she is able to be safe and stable in the community on medication and by all accounts, including her own, had a very nice and enjoyable life while on antipsychotic medication. There is a strong concern that patient will continue to further decompensate if she does not get back on antipsychotic medication. 01/15 no change in presentation; no insight, remains adamant about not having any psychiatric illness and that she should be discharged. Says that her family has no concerns about her and not able to tolerate hearing otherwise Reiterated [place] warning 01/16 patient remains without insight; continues to refuse all medication 01/17 no change in presentation; will continue to pursue involuntary commitment scheduled for 01/21/23 at 11:00 01/20 no change in presentation; continue with current plan for involuntary commitment 01/21 pt involuntarily committed; will see if can gather collateral from past prescriber to clarify med trials -came to writers attention that pt c/o to ancillary staff burning sensation in leg on 01/11; will clarify which leg and order doppler 01/22 no change in presentation; pt agreed to do doppler but then refused. 01/23 patient acknowledged she had auditory hallucinations in her apartment and was feeling threatened and that is why she left. Starting Zyprexa 5 mg Plan: Involuntary commitment and substituted judgment -q15 min checks Start Zyprexa/Zydis 5 mg q.h.s.: Court ordered, patient cannot refuse; give a Zyprexa IM if refuses p.o. Zyprexa IM 5 mg q.h.s. p.r.n. if patient refuses Zyprexa p.o. -Continue Eliquis 2.5 mg b.i.d., administrative underwriter contacted patient's outpatient prescriber Dr. Nelda Rodriguez [facility] who communicated to administrative underwriter that patient is supposed to remain on Eliquis court ordered substituted judgment: risperdal fluphenazine Haloperidol Perphenazine Abilify Clozapine Olanzapine Paliperidione Seroquel Ziprasidone COLLATERAL: Patient has a 3 day notice wanting discharge. In order to assess patient's safety and ability to return to the community, administrative underwriter obtained collateral from patient's sister Danielle, who knows patient is on the psych unit at [facility] and called the social media content manager yesterday to provide information. Jet Operator did not give out any information. Danielle reports that 10 years ago patient severely decompensated and threatened to kill her and their parents, which resulted in psychiatric hospitalization at a [facility] hospital. Patient was started on Risperdal and afterwards did quite well however was never able to work again and in fact has not been working since the , on disability instead. Danielle reports that they have been concerned about patient for several months, feeling that she's been decompensated little by little and that she is exhibiting the very same behaviors that led to her hospitalization 10 years ago. She says that the past few weeks, patient home health aide and friend have been reaching out to sister, saying that something is willing different about patient and that she needs help, afraid she might hurt herself. Danielle reports that at their father's wake, she went to her brother's car and started screaming; she said her father was trying to pull her out of her body to join him. She corroborates with the report from [place] ED it patient has been expressing paranoid delusions that satanic people, demons are after her that they are shooting a pathway to her neighbors and healing her neighbors but not her... Danielle says patient for currently calls her on the phone screaming over and over; she is insisting that she be relocated, that her sister get the government to relocate her because she is not safe in her apartment, someone is there trying to hurt her, she is hearing babies screaming... And is unable to be redirected or accept Danielle's answers. Danielle says patient was very concerned that her brother was a zombie; said the healthcare person the comes to her house was an imposter... She said that patient has been saying she plans to move in with her mother. Danielle is very fearful of this since patient threatened to kill her mother 10 years ago when she had similarly decompensated and she said that there is no way she will allow patient to live with their mother. Danielle reports that her brother Parker, the one who drove her to the emergency room this past week is the healthcare proxy. Patient's therapist called wanting to talk with administrative underwriter; administrative underwriter asked patient and patient said yes she wants this administrative underwriter to talk with her therapist Neva. Patient continues to refuse all medication including Eliquis. Jet Operator spoke with Neva, outpatient therapist who has known her since 2011 after she was discharged from [facility]. She reports that patient has never acknowledged any psychiatric illness of any kind. Overall these years patient has remained stable and able to care for self in the community. The sometime patient would make a delusional comment about being electronically scanned daily, and would have some would seem to be somatic physical complaints; otherwise no psychotic symptoms present until now. Therapist thinks patient was taking her medications until about a few months ago. She agrees that the of her father and emotional fall out has worsened symptoms. Therapist has concerns about patient recovering and further decompensating if she remains off medications and said she would recommend that patient get back on medications. Therapist told administrative underwriter that patient complained to her that administrative underwriter and staff for lying to her and accusing her of hurting baby's. Last week Patient told administrative underwriter that her brother Parker was her healthcare proxy; patient's sister Danielle confirm this. Jet Operator called Parker on 01/10 in order to collect information, collateral to further assess if patient is safe to return to the community since she remains adamant about being discharged. Patient's brother her expressed that he is very concerned and feels that if she is not treated, getting back on medications she will end up quickly worsening. He said that 10 years ago following [facility] admission, she emerged doing much better and remained so on medication for most of the next decade. Parker thinks patient may have been on a community Adan. He only recently learned that she stopped taking her medications about a year ago. He agrees with Danielle that patient has slowly been decompensating over the past few months. Over the past few weeks, she has been expressing paranoid delusions saying that she is being scanned by electronic scanners... And making comments about satanic rituals going on in her apartment. Reports she has numerous body complaints about her body parts not functioning though she is always found to be in good medical condition; saying that her skin is black... She called [employer] (who oversees her apartment) and complained that there was something bad in her apartment, de Karla activities, blue light coming from the haas, something trying to imprint on her, something about hurting baby's... He said [employer] came over to inspect but nothing was found. Her brother reports that this past week, she also called 911 saying she was being attacked demonically, satanic rituals in her apartment; the police came up but of again found nothing. Parker says he has the police report and explained to his sister that she is not well, that she needs medication however patient denied there was anything wrong, even denied that she had called 911... Patient asked Parker to bring her to the hospital for neck pain during which time patient was placed [address]. Patient's brother reiterates that if she is not treated with medication he is afraid she will continue to get worse; says she has been saying she does not want to go back to her apartment, but wants to live with their mother, which Parker says is not an option. Patient educated on: diagnosis and medication risk/benefits Informed Consent: does not understand Reason for continued inpatient stay Substantial Risk for: inability to function Time Spent With Patient Time: Total time managing care of this patient today ____ minutes.
[2023-01-23 18:00] VITALS: RESP 16
[2023-01-23] MEDS: OLANZapine ODT 10 MG TAB.RAPDIS 5 MG TRANSLINGU (20:19)
[2023-01-23] MEDS: LORazepam 1 MG TABLET PO (20:24)
[2023-01-24 16:55] VITALS: BP 117/79; PULSE 75; TEMP 35.7
--- NOTE | 2023-01-24 17:36 | HO.PSYCHPN ---
Subjective Subjective Date of Service: 01/24/23 Reason For Visit: F29 unspecified psychosis Interim History: Met with Patient; discussed with team Patient irritable and did not want to talk with mortgage loan underwriter. She said how long will she be here and mortgage loan underwriter tried to discuss with it but patient was still angry and resistant to conversation. She said she will not return back to her apartment however that her brother is trying to get her another apartment on the 1st floor, which is social work corroborates. Mental Status Exam Mental Status Exam Narrative: Pt is alert and oriented; behavior is irritable, not cooperative; patient is not in distress; dressed in hospital gown over casual attire, adequately groomed; mood is described as irritable and affect congruent; eye contact appropriate; Speech is normal rate, volume and prosody and not pressured; no psychomotor agitation/retardation present; thought process is organized and goal directed; Thought content is on discharge; otherwise pertinent to relevant topics; did not express any paranoid, delusional thinking; denies any SI/HI. Denies current AVH however endorse that she had auditory hallucinations in her apartment. Patients insight and judgment are impaired Diagnostics Vital Signs (24Hr): Vital Signs - 24 hr 01/23/23 18:00 Respiratory Rate 16 BMI result Body Mass Index 22.3 Medications Medications Current Medications Acetaminophen (Acetaminophen 325 Mg Tablet) 650 mg PO Q6H PRN PRN Reason: Headache/Pain Mild Scale (1-3) Al Hydroxide/Mg Hydroxide (Magnesium Hydrox/Alum Hydrox 30 Ml Oral.Susp) 30 ml PO Q6H PRN PRN Reason: Heartburn/Nausea Apixaban (Apixaban 2.5 Mg Tablet) 2.5 mg PO BID [facility] Last Admin: 01/24/23 08:23 Dose: Not Given Benzocaine (Throat Lozenge, Medicated Lozenge) 1 lozenge MUCOUS MEM Q2H PRN PRN Reason: Sore Throat Lorazepam (Lorazepam 1 Mg Tablet) 1 mg PO BID PRN PRN Reason: anxiety/restlessness Last Admin: 01/23/23 20:24 Dose: 1 mg Magnesium Hydroxide (Milk Of Magnesia 30 Ml Oral.Susp) 30 ml PO DAILY PRN PRN Reason: Constipation Olanzapine (Olanzapine Odt 10 Mg Tab.Rapdis) 5 mg TRANSLINGU BEDTIME [facility] Last Admin: 01/23/23 20:19 Dose: 5 mg Olanzapine (Olanzapine 10 Mg Vial) 5 mg IM DAILY PRN PRN Reason: if refuses PO; court order Polyethyl Glycol/Propylene Glycol (Propylene Glycol/Peg 400 Gel Eye Drops 10ml) 1 drop EYE-BOTH BID PRN PRN Reason: dry eyes Trazodone HCl (Trazodone Hcl 50 Mg Tablet) 50 mg PO BEDTIME MRX1 PRN PRN Reason: Insomnia Allergies Allergies Allergy/AdvReac Type Severity Reaction Status Date / Time amoxicillin Allergy Unknown Verified 01/08/23 03:36 codeine Allergy Unknown Verified 01/08/23 03:36 diphenhydramine Allergy Unknown Verified 01/08/23 03:36 [From Benadryl] Assessment & Plan Assessment & Plan (1) Schizophrenia: Status: Acute Code(s): F20.9 - Schizophrenia, unspecified Assessment and Plan: 01/18 CTP 01/19 not really able to engage patient - Plan HPI: Patient is a 67-year-old female with history of schizophrenia, history of PE (2018) who presents after her brother took patient to ED for worsening paranoid delusions and AVH in the face of increased psychosocial stressors including her father's recent . In [place] ED patient was vocalizing that she is worried the FBI is out to get her; reported to emergency room staff she was seeing demons and spirits, feeling unsafe in her apartment due to a demon attack, seen flashing lights? and that the demons were demanding to leave her apartment and that she feels afraid in her apartment ? she also said that she is declining in health and unable to eat or sleep. At 1 point patient was agitated and got Haldol IM. Told ED provider she stopped Risperdal because she was feeling foggy; at a different time she told staff it was making her legs restless. Impression: pt has hx of psychotic disorder and admission to [facility]; however, she's been stable for 10 years on Risperdal (and possibly remained so after she reportedly discontinued it a year or so ago). It seems that the emotional stress of her fathers has triggered return of psychotic symptoms. ED provider and collateral from sister report that patient for past weeks and days patient has been dysregulated by paranoid delusions and AH which are interfering in her life. However, currently on the unit, she is presenting as organized in both speech and behavior, denying any AVH or paranoid thinking and not expressing any delusional ideation. Given patient's history, ED report, her brothers and sisters concern, and refusal to restart antipsychotic medication, will hold onto patient for now to better assess her safety and ability to function in the community. -Reviewed labs from [place] ED: CBC, lytes, BUN/creatinine, calcium, TSH WNL; Negative COVID; UA with elevated leukocyte Estrace however negative nitrate; no report of urinary symptoms; refused to have admission physical. of note, patient reported that she went to [place] ED because of neck pain, choking and swallowing issues; she says these have remained fully resolved (At ED Patient reported she brought up her somatic complaints her doctors and that she had a recent endoscopy, stress test, swallow test all results unremarkable). Hospital course: 01/09 remains without any insight, is irritable and wants discharge; she denies that she ever told ED staff anything about AVH, paranoid thoughts, demons; denies that any of the events reported by ED staff or sister are true. Says she does not have any history psychiatric illness. Patient refused Eliquis Denies that she is on omeprazole or any other medication; does not want to discuss her medical history 01/10 no change in presentation; remains without insight; denies all collateral reports. Refusing Eliquis despite mortgage loan underwriter's concern explanation of risks of not taking Eliquis 01/12/23 continue current plan of care. 01/[address] for involuntary commitment. Patient continues to have psychotic symptoms and told her therapist that she is currently being accuse by this mortgage loan underwriter of wanting to hurt baby's. Patient continues to have no insight. She is afraid to go back to apartment due to paranoid delusions; pt told sister (and this mortgage loan underwriter) that she was planning to go stay at her mother's; sister is very afraid for their mothers safety and said if patient is discharged she will immediately pursue a restraining order; she is not taking prescribed Eliquis to prevent pulmonary embolism; patient is presenting with similar symptoms that resulted in past [facility] after she threatened to kill her mother, father and sister. Patient has demonstrated that she is able to be safe and stable in the community on medication and by all accounts, including her own, had a very nice and enjoyable life while on antipsychotic medication. There is a strong concern that patient will continue to further decompensate if she does not get back on antipsychotic medication. 01/15 no change in presentation; no insight, remains adamant about not having any psychiatric illness and that she should be discharged. Says that her family has no concerns about her and not able to tolerate hearing otherwise Reiterated [place] warning 01/16 patient remains without insight; continues to refuse all medication 01/17 no change in presentation; will continue to pursue involuntary commitment scheduled for 01/21/23 at 11:00 01/20 no change in presentation; continue with current plan for involuntary commitment 01/21 pt involuntarily committed; will see if can gather collateral from past prescriber to clarify med trials -came to writers attention that pt c/o to ancillary staff burning sensation in leg on 01/11; will clarify which leg and order doppler 01/22 no change in presentation; pt agreed to do doppler but then refused. 01/23 patient acknowledged she had auditory hallucinations in her apartment and was feeling threatened and that is why she left. Starting Zyprexa 5 mg 01/24 continue current treatment plan Plan: Involuntary commitment and substituted judgment -q15 min checks Start Zyprexa/Zydis 5 mg q.h.s.: Court ordered, patient cannot refuse; give a Zyprexa IM if refuses p.o. Zyprexa IM 5 mg q.h.s. p.r.n. if patient refuses Zyprexa p.o. -Continue Eliquis 2.5 mg b.i.d., mortgage loan underwriter contacted patient's outpatient prescriber Dr. [facility] who communicated to mortgage loan underwriter that patient is supposed to remain on Eliquis court ordered substituted judgment: risperdal fluphenazine Haloperidol Perphenazine Abilify Clozapine Olanzapine Paliperidione Seroquel Ziprasidone COLLATERAL: Patient has a 3 day notice wanting discharge. In order to assess patient's safety and ability to return to the community, mortgage loan underwriter obtained collateral from patient's sister Danielle, who knows patient is on the psych unit at [facility] and called the certified social workers in health care yesterday to provide information. Family Specialist did not give out any information. Danielle reports that 10 years ago patient severely decompensated and threatened to kill her and their parents, which resulted in psychiatric hospitalization at a [facility] hospital. Patient was started on Risperdal and afterwards did quite well however was never able to work again and in fact has not been working since the , on disability instead. Danielle reports that they have been concerned about patient for several months, feeling that she's been decompensated little by little and that she is exhibiting the very same behaviors that led to her hospitalization 10 years ago. She says that the past few weeks, patient home health aide and friend have been reaching out to sister, saying that something is willing different about patient and that she needs help, afraid she might hurt herself. Danielle reports that at their father's wake, she went to her brother's car and started screaming; she said her father was trying to pull her out of her body to join him. She corroborates with the report from [facility] it patient has been expressing paranoid delusions that satanic people, demons are after her that they are shooting a pathway to her neighbors and healing her neighbors but not her... Danielle says patient for currently calls her on the phone screaming over and over; she is insisting that she be relocated, that her sister get the government to relocate her because she is not safe in her apartment, someone is there trying to hurt her, she is hearing babies screaming... And is unable to be redirected or accept Danielle's answers. Danielle says patient was very concerned that her brother was a zombie; said the healthcare person the comes to her house was an imposter... She said that patient has been saying she plans to move in with her mother. Danielle is very fearful of this since patient threatened to kill her mother 10 years ago when she had similarly decompensated and she said that there is no way she will allow patient to live with their mother. Danielle reports that her brother Parker, the one who drove her to the emergency room this past week is the healthcare proxy. Patient's therapist called wanting to talk with mortgage loan underwriter; mortgage loan underwriter asked patient and patient said yes she wants this mortgage loan underwriter to talk with her therapist Neva. Patient continues to refuse all medication including Eliquis. Family Specialist spoke with Neva, outpatient therapist who has known her since 2011 after she was discharged from [facility]. She reports that patient has never acknowledged any psychiatric illness of any kind. Overall these years patient has remained stable and able to care for self in the community. The sometime patient would make a delusional comment about being electronically scanned daily, and would have some would seem to be somatic physical complaints; otherwise no psychotic symptoms present until now. Therapist thinks patient was taking her medications until about a few months ago. She agrees that the of her father and emotional fall out has worsened symptoms. Therapist has concerns about patient recovering and further decompensating if she remains off medications and said she would recommend that patient get back on medications. Therapist told mortgage loan underwriter that patient complained to her that mortgage loan underwriter and staff for lying to her and accusing her of hurting baby's. Last week Patient told mortgage loan underwriter that her brother Parker was her healthcare proxy; patient's sister Danielle confirm this. Family Specialist called Parker on 01/10 in order to collect information, collateral to further assess if patient is safe to return to the community since she remains adamant about being discharged. Patient's brother her expressed that he is very concerned and feels that if she is not treated, getting back on medications she will end up quickly worsening. He said that 10 years ago following [facility] admission, she emerged doing much better and remained so on medication for most of the next decade. Parker thinks patient may have been on a community Adan. He only recently learned that she stopped taking her medications about a year ago. He agrees with Danielle that patient has slowly been decompensating over the past few months. Over the past few weeks, she has been expressing paranoid delusions saying that she is being scanned by electronic scanners... And making comments about satanic rituals going on in her apartment. Reports she has numerous body complaints about her body parts not functioning though she is always found to be in good medical condition; saying that her skin is black... She called [employer] (who oversees her apartment) and complained that there was something bad in her apartment, de Karla activities, blue light coming from the haas, something trying to imprint on her, something about hurting baby's... He said [employer] came over to inspect but nothing was found. Her brother reports that this past week, she also called 911 saying she was being attacked demonically, satanic rituals in her apartment; the police came up but of again found nothing. Parker says he has the police report and explained to his sister that she is not well, that she needs medication however patient denied there was anything wrong, even denied that she had called 911... Patient asked Parker to bring her to the hospital for neck pain during which time patient was placed [address]. Patient's brother reiterates that if she is not treated with medication he is afraid she will continue to get worse; says she has been saying she does not want to go back to her apartment, but wants to live with their mother, which Parker says is not an option. Patient educated on: diagnosis and medication risk/benefits Informed Consent: does not understand Reason for continued inpatient stay Substantial Risk for: inability to function Time Spent With Patient Time: Total time managing care of this patient today ____ minutes.
[2023-01-24] MEDS: LORazepam 1 MG TABLET PO (22:00)
[2023-01-24] MEDS: OLANZapine ODT 10 MG TAB.RAPDIS 5 MG TRANSLINGU (22:00)
[2023-01-25 09:15] VITALS: BP 103/55; PULSE 83; RESP 18; O2SAT 97
--- NOTE | 2023-01-25 11:12 | P.PNPSI_ITS ---
Subjective Subjective Date of Service: 01/25/23 Reason For Visit: F29 unspecified psychosis Interim History: met with patient; discussed with team pt refused to talk with designer writer other than to say you might as well get me a coffin..you don't care if i ... Refused to talk further Mental Status Exam Mental Status Exam Narrative: Pt is alert and oriented; behavior is irritable, not cooperative; patient is not in distress; dressed in hospital gown over casual attire, adequately groomed; mood is described as irritable and affect congruent; eye contact appropriate; Speech is normal rate, volume and prosody and not pressured; no psychomotor agitation/retardation present; thought process is organized and goal directed; Thought content is on discharge; otherwise pertinent to relevant topics; did not express any paranoid, delusional thinking; denies any SI/HI. Denies current AVH however endorse that she had auditory hallucinations in her apartment. Patients insight and judgment are impaired Diagnostics Vital Signs (24Hr): Vital Signs - 24 hr 01/24/23 16:55 01/25/23 09:15 Temperature 96.3 F L Pulse Rate 75 83 Respiratory Rate 18 Blood Pressure 117/79 103/55 L Pulse Oximetry 97 Oxygen Delivery Method Room Air BMI result Body Mass Index 22.3 Medications Medications Current Medications Acetaminophen (Acetaminophen 325 Mg Tablet) 650 mg PO Q6H PRN PRN Reason: Headache/Pain Mild Scale (1-3) Al Hydroxide/Mg Hydroxide (Magnesium Hydrox/Alum Hydrox 30 Ml Oral.Susp) 30 ml PO Q6H PRN PRN Reason: Heartburn/Nausea Apixaban (Apixaban 2.5 Mg Tablet) 2.5 mg PO BID [facility] Last Admin: 01/25/23 07:59 Dose: Not Given Benzocaine (Throat Lozenge, Medicated Lozenge) 1 lozenge MUCOUS MEM Q2H PRN PRN Reason: Sore Throat Lorazepam (Lorazepam 1 Mg Tablet) 1 mg PO BID PRN PRN Reason: anxiety/restlessness Last Admin: 01/24/23 22:00 Dose: 1 mg Magnesium Hydroxide (Milk Of Magnesia 30 Ml Oral.Susp) 30 ml PO DAILY PRN PRN Reason: Constipation Olanzapine (Olanzapine Odt 10 Mg Tab.Rapdis) 5 mg TRANSLINGU BEDTIME [facility] Last Admin: 01/24/23 22:00 Dose: 5 mg Olanzapine (Olanzapine 10 Mg Vial) 5 mg IM DAILY PRN PRN Reason: if refuses PO; court order Polyethyl Glycol/Propylene Glycol (Propylene Glycol/Peg 400 Gel Eye Drops 10ml) 1 drop EYE-BOTH BID PRN PRN Reason: dry eyes Trazodone HCl (Trazodone Hcl 50 Mg Tablet) 50 mg PO BEDTIME MRX1 PRN PRN Reason: Insomnia Allergies Allergies Allergy/AdvReac Type Severity Reaction Status Date / Time amoxicillin Allergy Unknown Verified 01/08/23 03:36 codeine Allergy Unknown Verified 01/08/23 03:36 diphenhydramine Allergy Unknown Verified 01/08/23 03:36 [From Benadryl] Assessment & Plan Assessment & Plan (1) Schizophrenia: Status: Acute Code(s): F20.9 - Schizophrenia, unspecified Assessment and Plan: 01/18 CTP 01/19 not really able to engage patient - Plan HPI: Patient is a 67-year-old female with history of schizophrenia, history of PE (2018) who presents after her brother took patient to ED for worsening paranoid delusions and AVH in the face of increased psychosocial stressors including her father's recent . In [place] [facility] patient was vocalizing that she is worried the FBI is out to get her; reported to emergency room staff she was seeing demons and spirits, feeling unsafe in her apartment due to a demon attack, seen flashing lights? and that the demons were demanding to leave her apartment and that she feels afraid in her apartment ? she also said that she is declining in health and unable to eat or sleep. At 1 point patient was agitated and got Haldol IM. Told ED provider she stopped Risperdal because she was feeling foggy; at a different time she told staff it was making her legs restless. Impression: pt has hx of psychotic disorder and admission to [facility]; however, she's been stable for 10 years on Risperdal (and possibly remained so after she reportedly discontinued it a year or so ago). It seems that the emotional stress of her fathers has triggered return of psychotic symptoms. ED provider and collateral from sister report that patient for past weeks and days patient has been dysregulated by paranoid delusions and AH which are interfering in her life. However, currently on the unit, she is presenting as organized in both speech and behavior, denying any AVH or paranoid thinking and not expressing any delusional ideation. Given patient's history, ED report, her brothers and sisters concern, and refusal to restart antipsychotic medication, will hold onto patient for now to better assess her safety and ability to function in the community. -Reviewed labs from [place] ED: CBC, lytes, BUN/creatinine, calcium, TSH WNL; Negative COVID; UA with elevated leukocyte Estrace however negative nitrate; no report of urinary symptoms; refused to have admission physical. of note, patient reported that she went to [facility] ED because of neck pain, choking and swallowing issues; she says these have remained fully resolved (At ED Patient reported she brought up her somatic complaints her doctors and that she had a recent endoscopy, stress test, swallow test all results unremarkable). Hospital course: 01/09 remains without any insight, is irritable and wants discharge; she denies that she ever told ED staff anything about AVH, paranoid thoughts, demons; denies that any of the events reported by ED staff or sister are true. Says she does not have any history psychiatric illness. Patient refused Eliquis Denies that she is on omeprazole or any other medication; does not want to discuss her medical history 01/10 no change in presentation; remains without insight; denies all collateral reports. Refusing Eliquis despite designer writer's concern explanation of risks of not taking Eliquis 01/12/23 continue current plan of care. 01/[address] involuntary commitment. Patient continues to have psychotic symptoms and told her therapist that she is currently being accuse by this designer writer of wanting to hurt baby's. Patient continues to have no insight. She is afraid to go back to apartment due to paranoid delusions; pt told sister (and this designer writer) that she was planning to go stay at her mother's; sister is very afraid for their mothers safety and said if patient is discharged she will immediately pursue a restraining order; she is not taking prescribed Eliquis to prevent pulmonary embolism; patient is presenting with similar symptoms that resulted in past [facility] after she threatened to kill her mother, father and sister. Patient has demonstrated that she is able to be safe and stable in the community on medication and by all accounts, including her own, had a very nice and enjoyable life while on antipsychotic me dication. There is a strong concern that patient will continue to further decompensate if she does not get back on antipsychotic medication. 01/15 no change in presentation; no insight, remains adamant about not having any psychiatric illness and that she should be discharged. Says that her family has no concerns about her and not able to tolerate hearing otherwise Reiterated montague warning 01/16 patient remains without insight; continues to refuse all medication 01/17 no change in presentation; will continue to pursue involuntary commitment scheduled for 01/21/23 at 11:00 01/20 no change in presentation; continue with current plan for involuntary commitment 01/21 pt involuntarily committed; will see if can gather collateral from past prescriber to clarify med trials -came to writers attention that pt c/o to ancillary staff burning sensation in leg on 01/11; will clarify which leg and order doppler 01/22 no change in presentation; pt agreed to do doppler but then refused. 01/23 patient acknowledged she had auditory hallucinations in her apartment and was feeling threatened and that is why she left. Starting Zyprexa 5 mg 01/24 continue current treatment plan Plan: Involuntary commitment and substituted judgment -q15 min checks Start Zyprexa/Zydis 5 mg q.h.s.: Court ordered, patient cannot refuse; give a Zyprexa IM if refuses p.o. Zyprexa IM 5 mg q.h.s. p.r.n. if patient refuses Zyprexa p.o. -Continue Eliquis 2.5 mg b.i.d., designer writer contacted patient's outpatient prescriber Dr. Nelda Rodriguez [facility] who communicated to designer writer that patient is supposed to remain on Eliquis court ordered substituted judgment: risperdal fluphenazine Haloperidol Perphenazine Abilify Clozapine Olanzapine Paliperidione Seroquel Ziprasidone COLLATERAL: Patient has a 3 day notice wanting discharge. In order to assess patient's safety and ability to return to the community, designer writer obtained collateral from patient's sister Danielle, who knows patient is on the psych unit at [facility] and called the psychosocial rehabilitation counselor yesterday to provide information. [employer] did not give out any information. Danielle reports that 10 years ago patient severely decompensated and threatened to kill her and their parents, which resulted in psychiatric hospitalization at a [facility] hospital. Patient was started on Risperdal and afterwards did quite well however was never able to work again and in fact has not been working since the , on disability instead. Danielle reports that they have been concerned about patient for several months, feeling that she's been decompensated little by little and that she is exhibiting the very same behaviors that led to her hospitalization 10 years ago. She says that the past few weeks, patient home health aide and friend have been reaching out to sister, saying that something is willing different about patient and that she needs help, afraid she might hurt herself. Danielle reports that at their father's wake, she went to her brother's car and started screaming; she said her father was trying to pull her out of her body to join him. She corroborates with the report from [facility] it patient has been expressing paranoid delusions that satanic people, demons are after her that they are shooting a pathway to her neighbors and healing her neighbors but not her... Danielle says patient for currently calls her on the phone screaming over and over; she is insisting that she be relocated, that her sister get the government to relocate her because she is not safe in her apartment, someone is there trying to hurt her, she is hearing babies screaming... And is unable to be redirected or accept Danielle's answers. Danielle says patient was very concerned that her brother was a zombie; said the healthcare person the comes to her house was an imposter... She said that patient has been saying she plans to move in with her mother. Danielle is very fearful of this since patient threatened to kill her mother 10 years ago when she had similarly decompensated and she said that there is no way she will allow patient to live with their mother. Danielle reports that her brother Parker, the one who drove her to the emergency room this past week is the healthcare proxy. Patient's therapist called wanting to talk with designer writer; designer writer asked patient and patient said yes she wants this designer writer to talk with her therapist Neva. Patient continues to refuse all medication including Eliquis. [employer] spoke with Neva, outpatient therapist who has known her since 2011 after she was discharged from [facility]. She reports that patient has never acknowledged any psychiatric illness of any kind. Overall these years patient has remained stable and able to care for self in the community. The sometime patient would make a delusional comment about being electronically scanned daily, and would have some would seem to be somatic physical complaints; otherwise no psychotic symptoms present until now. Therapist thinks patient was taking her medications until about a few months ago. She agrees that the of her father and emotional fall out has worsened symptoms. Therapist has concerns about patient recovering and further decompensating if she remains off medications and said she would recommend that patient get back on medications. Therapist told designer writer that patient complained to her that designer writer and staff for lying to her and accusing her of hurting baby's. Last week Patient told designer writer that her brother Parker was her healthcare proxy; patient's sister Danielle confirm this. [employer] called Parker on 01/10 in order to collect information, collateral to further assess if patient is safe to return to the community since she remains adamant about being discharged. Patient's brother her expressed that he is very concerned and feels that if she is not treated, getting back on medications she will end up quickly worsening. He said that 10 years ago following [facility] hospital admission, she emerged doing much better and remained so on medication for most of the next decade. Parker thinks patient may have been on a community Adan. He only recently learned that she stopped taking her medications about a year ago. He agrees with Danielle that patient has slowly been decompensating over the past few months. Over the past few weeks, she has been expressing paranoid delusions saying that she is being scanned by electronic scanners... And making comments about satanic rituals going on in her apartment. Reports she has numerous body complaints about her body parts not functioning though she is always found to be in good medical condition; saying that her skin is black... She called [employer] (who oversees her apartment) and complained that there was something bad in her apartment, de Karla activities, blue light coming from the haas, something trying to imprint on her, something about hurting baby's... He said [employer] came over to inspect but nothing was found. Her brother reports that this past week, she also called 911 saying she was being attacked demonically, satanic rituals in her apartment; the police came up but of again found nothing. Parker says he has the police report and explained to his sister that she is not well, that she needs medication however patient denied there was anything wrong, even denied that she had called 911... Patient asked Parker to bring her to the hospital for neck pain during which time patient was placed [address]. Patient's brother reiterates that if she is not treated with medication he is afraid she will continue to get worse; says she has been saying she does not want to go back to her apartment, but wants to live with their mother, which Kash alvarado says is not an option. Reason for continued inpatient stay Substantial Risk for: inability to function Time Spent With Patient Time: Total time managing care of this patient today ____ minutes.
[2023-01-25] MEDS: OLANZapine 5 MG TABLET PO (20:53)
--- NOTE | 2023-01-25 21:51 | PC.NURSE ---
Pt refused Eliquis, reporting my doctor told me not to . PT encouraged to consider taking med.
--- NOTE | 2023-01-25 21:52 | PC.NURSE ---
This group underwriter approached pt for evening meds (scheduled court ordered Zyprexa). PT began yelling don't you understand! I had a bad reaction to that medication. I was tired this morning and I couldn't even speak, I was slurring my words. I think that doctor is trying to kill me . This group underwriter read back on notes (no nursing notes) and contacted Dr. Louis with pt's concerns. Per Dr. Louis, PT must take Zyprexa per court order. No side effects were reported to him. Zyprexa 5mg given, mouth check completed and pt appeared to have swallowed pill. PT stated I am going to corby you . All of you. You're killing me. All I ever did was take care of my parents and now I am here .
[2023-01-26 06:00] VITALS: BP 120/70; PULSE 98; RESP 16; TEMP 36.2; O2SAT 96
--- NOTE | 2023-01-26 10:38 | P.PNPSI_ITS ---
Subjective Subjective Date of Service: 01/26/23 Reason For Visit: F29 unspecified psychosis Interim History: Met with patient; discussed with team Patient very irritable with television script writer again insisting it is wrong that she is on the unit, that she does not need to be here, does not have psychiatric illness and that the medication she is being given is making her ill. Patient said that earlier she had a dry mouth, it was hard to talk was slurring her words. Patient has however been able to talk to television script writer and nursing clearly throughout her admission with none of the symptoms apparent to staff. She said it seemed to have resolved. Patient talked about her right knee pain however she said it was chronic and flares up from time to time. Patient seen talking to herself though she continually denies any AVH. Clam Dredger agreed to continue to assess to see if symptoms continue and whether not a change in medication is warranted. Mental Status Exam Mental Status Exam Narrative: Pt is alert and oriented; behavior is irritable, not cooperative; patient is not in distress; dressed in casual attire, adequately groomed; mood is described as irritable and affect congruent; eye contact appropriate; Speech is normal rate, volume and prosody and not pressured; no psychomotor agitation/retardation present; thought process is organized and goal directed; Thought content is on discharge; otherwise pertinent to relevant topics; did not express any paranoid, delusional thinking; denies any SI/HI. Denies current AVH however endorse that she had auditory hallucinations in her apartment. Patients insight and judgment are impaired Diagnostics Vital Signs (24Hr): Vital Signs - 24 hr 01/26/23 06:00 Temperature 97.2 F Pulse Rate 98 Respiratory Rate 16 Blood Pressure 120/70 Pulse Oximetry 96 Oxygen Delivery Method Room Air BMI result Body Mass Index 22.3 Medications Medications Current Medications Acetaminophen (Acetaminophen 325 Mg Tablet) 650 mg PO Q6H PRN PRN Reason: Headache/Pain Mild Scale (1-3) Al Hydroxide/Mg Hydroxide (Magnesium Hydrox/Alum Hydrox 30 Ml Oral.Susp) 30 ml PO Q6H PRN PRN Reason: Heartburn/Nausea Apixaban (Apixaban 2.5 Mg Tablet) 2.5 mg PO BID MARITA Last Admin: 01/26/23 08:55 Dose: Not Given Benzocaine (Throat Lozenge, Medicated Lozenge) 1 lozenge MUCOUS MEM Q2H PRN PRN Reason: Sore Throat Lorazepam (Lorazepam 1 Mg Tablet) 1 mg PO BID PRN PRN Reason: anxiety/restlessness Last Admin: 01/24/23 22:00 Dose: 1 mg Magnesium Hydroxide (Milk Of Magnesia 30 Ml Oral.Susp) 30 ml PO DAILY PRN PRN Reason: Constipation Olanzapine (Olanzapine 10 Mg Vial) 5 mg IM DAILY PRN PRN Reason: if refuses PO; court order Olanzapine (Olanzapine 5 Mg Tablet) 5 mg PO BEDTIME MARITA Last Admin: 01/25/23 20:53 Dose: 5 mg Polyethyl Glycol/Propylene Glycol (Propylene Glycol/Peg 400 Gel Eye Drops 10ml) 1 drop EYE-BOTH BID PRN PRN Reason: dry eyes Trazodone HCl (Trazodone Hcl 50 Mg Tablet) 50 mg PO BEDTIME MRX1 PRN PRN Reason: Insomnia Allergies Allergies Allergy/AdvReac Type Severity Reaction Status Date / Time amoxicillin Allergy Unknown Verified 01/08/23 03:36 codeine Allergy Unknown Verified 01/08/23 03:36 diphenhydramine Allergy Unknown Verified 01/08/23 03:36 [From Benadryl] Assessment & Plan Assessment & Plan (1) Schizophrenia: Status: Acute Code(s): F20.9 - Schizophrenia, unspecified Assessment and Plan: 01/18 CTP 01/19 not really able to engage patient - Plan HPI: Patient is a 67-year-old female with history of schizophrenia, history of PE (2019) who presents after her brother took patient to ED for worsening paranoid delusions and AVH in the face of increased psychosocial stressors including her father's recent . In [place] ED patient was vocalizing that she is worried the FBI is out to get her; reported to emergency room staff she was seeing demons and spirits, feeling unsafe in her apartment due to a demon attack, seen flashing lights? and that the demons were demanding to leave her apartment and that she feels afraid in her apartment ? she also said that she is declining in health and unable to eat or sleep. At 1 point patient was agitated and got Haldol IM. Told ED provider she stopped Risperdal because she was feeling foggy; at a different time she told staff it was making her legs restless. Impression: pt has hx of psychotic disorder and admission to [facility]; however, she's been stable for 10 years on Risperdal (and possibly remained so after she reportedly discontinued it a year or so ago). It seems that the emotional stress of her fathers has triggered return of psychotic symptoms. ED provider and collateral from sister report that patient for past weeks and days patient has been dysregulated by paranoid delusions and AH which are interfering in her life. However, currently on the unit, she is presenting as organized in both speech and behavior, denying any AVH or paranoid thinking and not expressing any delusional ideation. Given patient's history, ED report, her brothers and sisters concern, and refusal to restart antipsychotic medication, will hold onto patient for now to better assess her safety and ability to function in the community. -Reviewed labs from [place] ED: CBC, lytes, BUN/creatinine, calcium, TSH WNL; Negative COVID; UA with elevated leukocyte Estrace however negative nitrate; no report of urinary symptoms; refused to have admission physical. of note, patient reported that she went to [place] ED because of neck pain, choking and swallowing issues; she says these have remained fully resolved (At ED Patient reported she brought up her somatic complaints her doctors and that she had a recent endoscopy, stress test, swallow test all results unremarkable). Hospital course: 01/09 remains without any insight, is irritable and wants discharge; she denies that she ever told ED staff anything about AVH, paranoid thoughts, demons; denies that any of the events reported by ED staff or sister are true. Says she does not have any history psychiatric illness. Patient refused Eliquis Denies that she is on omeprazole or any other medication; does not want to discuss her medical history 01/10 no change in presentation; remains without insight; denies all collateral reports. Refusing Eliquis despite television script writer's concern explanation of risks of not taking Eliquis 01/12/23 continue current plan of care. 01/[address] involuntary commitment. Patient continues to have psychotic symptoms and told her therapist that she is currently being accuse by this television script writer of wanting to hurt baby's. Patient continues to have no insight. She is afraid to go back to apartment due to paranoid delusions; pt told sister (and this television script writer) that she was planning to go stay at her mother's; sister is very afraid for their mothers safety and said if patient is discharged she will immediately pursue a restraining order; she is not taking prescribed Eliquis to prevent pulmonary embolism; patient is presenting with similar symptoms that resulted in past involuntary commitment at a [facility] hospital after she threatened to kill her mother, father and sister. Patient has demonstrated that she is able to be safe and stable in the community on medication and by all accounts, including her own, had a very nice and enjoyable life while on antipsychotic medication. There is a strong concern that patient will continue to further decompensate if she does not get back on antipsychotic medication. 01/15 no change in presentation; no insight, remains adamant about not having any psychiatric illness and that she should be discharged. Says that her family has no concerns about her and not able to tolerate hearing otherwise Reiterated [place]ague warning 01/16 patient remains without insight; continues to refuse all medication 01/17 no change in presentation; will continue to pursue involuntary commitment scheduled for 01/21/23 at 11:00 01/20 no change in presentation; continue with current plan for involuntary commitment 01/21 pt involuntarily committed; will see if can gather collateral from past prescriber to clarify med trials -came to writers attention that pt c/o to ancillary staff burning sensation in leg on 01/11; will clarify which leg and order doppler 01/22 no change in presentation; pt agreed to do doppler but then refused. 01/23 patient acknowledged she had auditory hallucinations in her apartment and was feeling threatened and that is why she left. Starting Zyprexa 5 mg 01/24 continue current treatment plan 01/26 patient complains of medication side effects saying the cause dry mouth, slurring of words, making it hard for her to talk; neither television script writer nor staff has observed any of the symptoms however will continue to monitor patient for such symptoms and evaluate whether medication changes are needed. Plan: Involuntary commitment and substituted judgment -q15 min checks Continue Zyprexa/Zydis 5 mg q.h.s.: Court ordered, patient cannot refuse; give a Zyprexa IM if refuses p.o. Zyprexa IM 5 mg q.h.s. p.r.n. if patient refuses Zyprexa p.o. -Continue Eliquis 2.5 mg b.i.d., television script writer contacted patient's outpatient presc[facility] who communicated to television script writer that patient is supposed to remain on Eliquis court ordered substituted judgment: risperdal fluphenazine Haloperidol Perphenazine Abilify Clozapine Olanzapine Paliperidione Seroquel Ziprasidone COLLATERAL: Patient has a 3 day notice wanting discharge. In order to assess patient's safety and ability to return to the community, television script writer obtained collateral from patient's sister Danielle, who knows patient is on the psych unit at [facility] and called the social services specialist yesterday to provide information. Clam Dredger did not give out any information. Danielle reports that 10 years ago patient severely decompensated and threatened to kill her and their parents, which resulted in psychiatric hospitalization at a [facility] hospital. Patient was started on Risperdal and afterwards did quite well however was never able to work again and in fact has not been working since the , on disability instead. Danielle reports that they have been concerned about patient for several months, feeling that she's been decompensated little by little and that she is exhibiting the very same behaviors that led to her hospitalization 10 years ago. She says that the past few weeks, patient home health aide and friend have been reaching out to sister, saying that something is willing different about patient and that she needs help, afraid she might hurt herself. Danielle reports that at their father's wake, she went to her brother's car and started screaming; she said her father was trying to pull her out of her body to join him. She corroborates with the report from [facility] it patient has been expressing paranoid delusions that satanic people, demons are after her that they are shooting a pathway to her neighbors and healing her neighbors but not her... Danielle says patient for currently calls her on the phone screaming over and over; she is insisting that she be relocated, that her sister get the government to relocate her because she is not safe in her apartment, someone is there trying to hurt her, she is hearing babies screaming... And is unable to be redirected or accept Danielle's answers. Danielle says patient was very concerned that her brother was a zombie; said the healthcare person the comes to her house was an imposter... She said that patient has been saying she plans to move in with her mother. Danielle is very fearful of this since patient threatened to kill her mother 10 years ago when she had similarly decompensated and she said that there is no way she will allow patient to live with their mother. Danielle reports that her brother Parker, the one who drove her to the emergency room this past week is the healthcare proxy. Patient's therapist called wanting to talk with television script writer; television script writer asked patient and patient said yes she wants this television script writer to talk with her therapist Neva. Patient continues to refuse all medication including Eliquis. Clam Dredger spoke with Neva, outpatient therapist who has known her since 2011 after she was discharged from [facility]. She reports that patient has never acknowledged any psychiatric illness of any kind. Overall these years patient has remained stable and able to care for self in the community. The sometime patient would make a delusional comment about being electronically scanned daily, and would have some would seem to be somatic physical complaints; otherwise no psychotic symptoms present until now. Therapist thinks patient was taking her medications until about a few months ago. She agrees that the of her father and emotional fall out has worsened symptoms. Therapist has concerns about patient recovering and further decompensating if she remains off medications and said she would recommend that patient get back on medications. Therapist told television script writer that patient complained to her that television script writer and staff for lying to her and accusing her of hurting baby's. Last week Patient told television script writer that her brother Parker was her healthcare proxy; patient's sister Danielle confirm this. Clam Dredger called Parker on 01/10 in order to collect information, collateral to further assess if patient is safe to return to the community since she remains adamant about being discharged. Patient's brother her expressed that he is very concerned and feels that if she is not tr eated, getting back on medications she will end up quickly worsening. He said that 10 years ago following [facility] hospital admission, she emerged doing much better and remained so on medication for most of the next decade. Parker thinks patient may have been on a community Adan. He only recently learned that she stopped taking her medications about a year ago. He agrees with Danielle that patient has slowly been decompensating over the past few months. Over the past few weeks, she has been expressing paranoid delusions saying that she is being scanned by electronic scanners... And making comments about satanic rituals going on in her apartment. Reports she has numerous body complaints about her body parts not functioning though she is always found to be in good medical condition; saying that her skin is black... She called [employer] (who oversees her apartment) and complained that there was something bad in her apartment, de Karla activities, blue light coming from the haas, something trying to imprint on her, something about hurting baby's... He said [employer] came over to inspect but nothing was found. Her brother reports that this past week, she also called 911 saying she was being attacked demonically, satanic rituals in her apartment; the police came up but of again found nothing. Parker says he has the police report and explained to his sister that she is not well, that she needs medication however patient denied there was anything wrong, even denied that she had called 911... Patient asked Parker to bring her to the hospital for neck pain during which time patient was placed [address]. Patient's brother reiterates that if she is not treated with medication he is afraid she will continue to get worse; says she has been saying she does not want to go back to her apartment, but wants to live with their mother, which Parker says is not an option. Patient educated on: diagnosis and medication risk/benefits Informed Consent: does not understand Reason for continued inpatient stay Substantial Risk for: inability to function Time Spent With Patient Time: Total time managing care of this patient today ____ minutes.
[2023-01-26 18:00] VITALS: BP 115/67; PULSE 77; O2SAT 97
[2023-01-26] MEDS: OLANZapine 5 MG TABLET PO (19:52)
[2023-01-26] MEDS: LORazepam 1 MG TABLET PO (19:53)
[2023-01-27 06:00] VITALS: PULSE 72; RESP 16; O2SAT 98
--- NOTE | 2023-01-27 13:00 | HO.PSYCHPN ---
Subjective Subjective Date of Service: 01/27/23 Reason For Visit: F29 unspecified psychosis Interim History: met with patient; discussed with team Patient remains irritated that she is on the inpatient unit. Immediately ask when is she going to be discharged. She again acknowledges that she was feeling threatened in her apartment by something but does not know what it was, but which caused her to leave. She said her home health aide was there an also experienced it. Patient otherwise reiterated that she is not psychotic, she does not a mental illness so why she being kept here. Discussed with patient option of transferring to the geriatric unit; patient said she would in fact like to go downstairs; discussed case with team who agree Patient making opening and closing movements with her mouth. Investigations Consultant inquired if this was a side effect from the medication however patient said no it's just does her ears feel clogged up and she is trying to unclog them Mental Status Exam Mental Status Exam Narrative: Pt is alert and oriented; behavior is irritable, not cooperative; patient is not in distress; dressed in casual attire with hospital gown on top, adequately groomed; mood is described as irritable and affect congruent; eye contact appropriate; Speech is normal rate, volume and prosody and not pressured; no psychomotor agitation/retardation present; Patient making opening and closing movements with her mouth. Investigations Consultant inquired if this was a side effect from the medication however patient said no it's just does her ears feel clogged up and she is trying to unclog them. Thought process is organized and goal directed; Thought content is on discharge; otherwise pertinent to relevant topics; did not express any paranoid, delusional thinking; denies any SI/HI. Denies current AVH however endorse that she had auditory hallucinations in her apartment. Patients insight and judgment are impaired Diagnostics Vital Signs (24Hr): Vital Signs - 24 hr 01/26/23 18:00 01/27/23 06:00 Pulse Rate 77 72 Respiratory Rate 16 Blood Pressure 115/67 Pulse Oximetry 97 98 Oxygen Delivery Method Room Air Room Air BMI result Body Mass Index 22.3 Medications Medications Current Medications Acetaminophen (Acetaminophen 325 Mg Tablet) 650 mg PO Q6H PRN PRN Reason: Headache/Pain Mild Scale (1-3) Al Hydroxide/Mg Hydroxide (Magnesium Hydrox/Alum Hydrox 30 Ml Oral.Susp) 30 ml PO Q6H PRN PRN Reason: Heartburn/Nausea Apixaban (Apixaban 2.5 Mg Tablet) 2.5 mg PO BID [facility] Last Admin: 01/27/23 09:44 Dose: Not Given Benzocaine (Throat Lozenge, Medicated Lozenge) 1 lozenge MUCOUS MEM Q2H PRN PRN Reason: Sore Throat Lorazepam (Lorazepam 1 Mg Tablet) 1 mg PO BID PRN PRN Reason: Anxiety Last Admin: 01/26/23 19:53 Dose: 1 mg Magnesium Hydroxide (Milk Of Magnesia 30 Ml Oral.Susp) 30 ml PO DAILY PRN PRN Reason: Constipation Olanzapine (Olanzapine 10 Mg Vial) 5 mg IM DAILY PRN PRN Reason: if refuses PO; court order Olanzapine (Olanzapine 5 Mg Tablet) 5 mg PO BEDTIME MARITA Last Admin: 01/26/23 19:52 Dose: 5 mg Polyethyl Glycol/Propylene Glycol (Propylene Glycol/Peg 400 Gel Eye Drops 10ml) 1 drop EYE-BOTH BID PRN PRN Reason: dry eyes Trazodone HCl (Trazodone Hcl 50 Mg Tablet) 50 mg PO BEDTIME MRX1 PRN PRN Reason: Insomnia Allergies Allergies Allergy/AdvReac Type Severity Reaction Status Date / Time amoxicillin Allergy Unknown Verified 01/08/23 03:36 codeine Allergy Unknown Verified 01/08/23 03:36 diphenhydramine Allergy Unknown Verified 01/08/23 03:36 [From Yoselyn] Assessment & Plan Assessment & Plan (1) Schizophrenia: Status: Acute Code(s): F20.9 - Schizophrenia, unspecified Assessment and Plan: 01/18 CTP 01/19 not really able to engage patient - Plan HPI: Patient is a 67-year-old female with history of schizophrenia, history of PE (2019) who presents after her brother took patient to ED for worsening paranoid delusions and AVH in the face of increased psychosocial stressors including her father's recent . In [facility] patient was vocalizing that she is worried the FBI is out to get her; reported to emergency room staff she was seeing demons and spirits, feeling unsafe in her apartment due to a demon attack, seen flashing lights? and that the demons were demanding to leave her apartment and that she feels afraid in her apartment ? she also said that she is declining in health and unable to eat or sleep. At 1 point patient was agitated and got Haldol IM. Told ED provider she stopped Risperdal because she was feeling foggy; at a different time she told staff it was making her legs restless. Impression: pt has hx of psychotic disorder and admission to [facility]; however, she's been stable for 10 years on Risperdal (and possibly remained so after she reportedly discontinued it a year or so ago). It seems that the emotional stress of her fathers has triggered return of psychotic symptoms. ED provider and collateral from sister report that patient for past weeks and days patient has been dysregulated by paranoid delusions and AH which are interfering in her life. However, currently on the unit, she is presenting as organized in both speech and behavior, denying any AVH or paranoid thinking and not expressing any delusional ideation. Given patient's history, ED report, her brothers and sisters concern, and refusal to restart antipsychotic medication, will hold onto patient for now to better assess her safety and ability to function in the community. -Reviewed labs from [facility]: CBC, lytes, BUN/creatinine, calcium, TSH WNL; Negative COVID; UA with elevated leukocyte Estrace however negative nitrate; no report of urinary symptoms; refused to have admission physical. of note, patient reported that she went to [facility] because of neck pain, choking and swallowing issues; she says these have remained fully resolved (At ED Patient reported she brought up her somatic complaints her doctors and that she had a recent endoscopy, stress test, swallow test all results unremarkable). Hospital course: 01/09 remains without any insight, is irritable and wants discharge; she denies that she ever told ED staff anything about AVH, paranoid thoughts, demons; denies that any of the events reported by ED staff or sister are true. Says she does not have any history psychiatric illness. Patient refused Eliquis Denies that she is on omeprazole or any other medication; does not want to discuss her medical history 01/10 no change in presentation; remains without insight; denies all collateral reports. Refusing Eliquis despite race and sports book writer's concern explanation of risks of not taking Eliquis 01/12/23 continue current plan of care. 01/[address] involuntary commitment. Patient continues to have psychotic symptoms and told her therapist that she is currently being accuse by this race and sports book writer of wanting to hurt baby's. Patient continues to have no insight. She is afraid to go back to apartment due to paranoid delusions; pt told sister (and this race and sports book writer) that she was planning to go stay at her mother's; sister is very afraid for their mothers safety and said if patient is discharged she will immediately pursue a restraining order; she is not taking prescribed Eliquis to prevent pulmonary embolism; patient is presenting with similar symptoms that resulted in past involuntary commitment at a [facility] after she threatened to kill her mother, father and sister. Patient has demonstrated that she is able to be safe and stable in the community on medication and by all accounts, including her own, had a very nice and enjoyable life while on antipsychotic medication. There is a strong concern that patient will continue to further decompensate if she does not get back on antipsychotic medication. 01/15 no change in presentation; no insight, remains adamant about not having any psychiatric illness and that she should be discharged. Says that her family has no concerns about her and not able to tolerate hearing otherwise Reiterated montague warning 01/16 patient remains without insight; continues to refuse all medication 01/17 no change in presentation; will continue to pursue involuntary commitment scheduled for 01/21/23 at 11:00 01/20 no change in presentation; continue with current plan for involuntary commitment 01/21 pt involuntarily committed; will see if can gather collateral from past prescriber to clarify med trials -came to writers attention that pt c/o to ancillary staff burning sensation in leg on 01/11; will clarify which leg and order doppler 01/22 no change in presentation; pt agreed to do doppler but then refused. 01/23 patient acknowledged she had auditory hallucinations in her apartment and was feeling threatened and that is why she left. Starting Zyprexa 5 mg 01/24 continue current treatment plan 01/26 patient complains of medication side effects saying the cause dry mouth, slurring of words, making it hard for her to talk; neither race and sports book writer nor staff has observed any of the symptoms however will continue to monitor patient for such symptoms and evaluate whether medication changes are needed. 01/27 no change in presentation; continues to be without insight and wants discharge. However she is amenable to transferring to the geriatric unit to be around peers *Patient making opening and closing movements with her mouth. Investigations Consultant inquired if this was a side effect from the medication however patient said no it's just does her ears feel clogged up and she is trying to unclog them Could possibly be TD Plan: Involuntary commitment and substituted judgment -q15 min checks Continue Zyprexa/Zydis 5 mg q.h.s.: Court ordered, patient cannot refuse; give a Zyprexa IM if refuses p.o. Zyprexa IM 5 mg q.h.s. p.r.n. if patient refuses Zyprexa p.o. -Continue Eliquis 2.5 mg b.i.d., race and sports book writer contacted patient's outpatient prescriber Dr. Nelda Rodriguez [facility] who communicated to race and sports book writer that patient is supposed to remain on Eliquis court ordered substituted judgment: risperdal fluphenazine Haloperidol Perphenazine Abilify Clozapine Olanzapine Paliperidione Seroquel Ziprasidone COLLATERAL: Patient has a 3 day notice wanting discharge. In order to assess patient's safety and ability to return to the community, race and sports book writer obtained collateral from patient's sister Danielle, who knows patient is on the psych unit at [facility] and called the psych social worker yesterday to provide information. Investigations Consultant did not give out any information. Danielle reports that 10 years ago patient severely decompensated and threatened to kill her and their parents, which resulted in psychiatric hospitalization at a [facility]. Patient was started on Risperdal and afterwards did quite well however was never able to work again and in fact has not been working since the , on disability instead. Danielle reports that they have been concerned about patient for several months, feeling that she's been decompensated little by little and that she is exhibiting the very same behaviors that led to her hospitalization 10 years ago. She says that the past few weeks, patient home health aide and friend have been reaching out to sister, saying that something is willing different about patient and that she needs help, afraid she might hurt herself. Daneille reports that at their father's wake, she went to her brother's car and started screaming; she said her father was trying to pull her out of her body to join him. She corroborates with the report from [facility] it patient has been expressing paranoid delusions that satanic people, demons are after her that they are shooting a pathway to her neighbors and healing her neighbors but not her... Danielle says patient for currently calls her on the phone screaming over and over; she is insisting that she be relocated, that her sister get the government to relocate her because she is not safe in her apartment, someone is there trying to hurt her, she is hearing babies screaming... And is unable to be redirected or accept Danielle's answers. Danielle says patient was very concerned that her brother was a zombie; said the healthcare person the comes to her house was an imposter... She said that patient has been saying she plans to move in with her mother. Danielle is very fearful of this since patient threatened to kill her mother 10 years ago when she had similarly decompensated and she said that there is no way she will allow patient to live with their mother. Danielle reports that her brother Parker, the one who drove her to the emergency room this past week is the healthcare proxy. Patient's therapist called wanting to talk with race and sports book writer; race and sports book writer asked patient and patient said yes she wants this race and sports book writer to talk with her therapist Neva. Patient continues to refuse all medication including Eliquis. Investigations Consultant spoke with Neva, outpatient therapist who has known her since 2011 after she was discharged from [facility]. She reports that patient has never acknowledged any psychiatric illness of any kind. Overall these years patient has remained stable and able to care for self in the community. The sometime patient would make a delusional comment about being electronically scanned daily, and would have some would seem to be somatic physical complaints; otherwise no psychotic symptoms present until now. Therapist thinks patient was taking her medications until about a few months ago. She agrees that the of her father and emotional fall out has worsened symptoms. Therapist has concerns about patient recovering and further decompensating if she remains off medications and said she would recommend that patient get back on medications. Therapist told race and sports book writer that patient complained to her that race and sports book writer and staff for lying to her and accusing her of hurting baby's. Last week Patient told race and sports book writer that her brother Parker was her healthcare proxy; patient's sister Danielle confirm this. Investigations Consultant called Parker on 01/10 in order to collect information, collateral to further assess if patient is safe to return to the community since she remains adamant about being discharged. Patient's brother her expressed that he is very concerned and feels that if she is not treated, getting back on medications she will end up quickly worsening. He said that [facility], she emerged doing much better and remained so on medication for most of the next decade. Parker thinks patient may have been on a community Adan. He only recently learned that she stopped taking her medications about a year ago. He agrees with Danielle that patient has slowly been decompensating over the past few months. Over the past few weeks, she has been expressing paranoid delusions saying that she is being scanned by electronic scanners... And making comments about satanic rituals going on in her apartment. Reports she has numerous body complaints about her body parts not functioning though she is always found to be in good medical condition; saying that her skin is black... She called Enikos (who oversees her apartment) and complained that there was something bad in her apartment, de Karla activities, blue light coming from the haas, something trying to imprint on her, something about hurting baby's... He said Enikos came over to inspect but nothing was found. Her brother reports that this past week, she also called 911 saying she was being attacked demonically, satanic rituals in her apartment; the police came up but of again found nothing. Parker says he has the police report and explained to his sister that she is not well, that she needs medication however patient denied there was anything wrong, even denied that she had called 911... Patient asked Parker to bring her to the hospital for neck pain during which time patient was placed [address]. Patient's brother reiterates that if she is not treated with medication he is afraid she will continue to get worse; says she has been saying she does not want to go back to her apartment, but wants to live with their mother, which Parker says is not an option. Patient educated on: diagnosis and medication risk/benefits Informed Consent: does not understand Reason for continued inpatient stay Substantial Risk for: inability to function Time Spent With Patient Time: Total time managing care of this patient today ____ minutes.
--- NOTE | 2023-01-27 14:17 | PC.ADMIT ---
Pt arrived on unit at 1405, transferred from [facility] M[facility] unit. Nurse to nurse done prior to admission to this unit. Pt denies depression on arrival, rates anxiety #8 on scale 1-10(10 worse). States she has not been anxious recently, but transfer has caused anxiety. States she was told her favorite staff members would transfer her, but security in attendance caused anxiety; 2 M5 staff and 1 security assisted in transfer. States she has had bad things happen with police in past. States she is a normal 67 y.o woman who has her memory and does not have dementia and does not know why she is hospitalized. Oriented to person place and time. Denies paranoid thoughts, but paraoia observed re: room, roommate, bathroom. Holding belongings in paper bag closely, not allowing it to be placed in her assigned room. Denies SI/HI, denies AH/VH. Requesting to look at this communications writer's mouth will being spoken to and opening mouth wide multiple times during conversation. States ears are blocked, starting 2 days ago. States blockage may possibly due to sinuses. Transfer orders received. Pt to be on [address] Leon.
[2023-01-27 18:00] VITALS: BP 102/69; PULSE 81; RESP 20; O2SAT 100
[2023-01-27] MEDS: LORazepam 1 MG TABLET PO (18:43)
[2023-01-27] MEDS: OLANZapine 5 MG TABLET PO (19:56)
[2023-01-28 08:50] VITALS: BP 123/72; PULSE 84; RESP 18; O2SAT 100
[2023-01-28 18:00] VITALS: BP 129/70; PULSE 64; RESP 16; TEMP 36.1; O2SAT 100
[2023-01-28] MEDS: LORazepam 1 MG TABLET PO (20:30)
[2023-01-28] MEDS: OLANZapine 5 MG TABLET PO (20:30)
[2023-01-29 06:00] VITALS: BP 124/59; PULSE 88; RESP 16; O2SAT 96
--- NOTE | 2023-01-29 08:46 | HO.PSYCHPN ---
Subjective Subjective Date of Service: 01/29/23 Reason For Visit: F29 unspecified psychosis Subjective Notes: Section 8 Interim History: Pt transferred from . Pt on sect 8. Pt reports what they are doing to me is illegal, I am competent to take care of myself. Pt reports she did not tell anyone about what was going on at her apartment, which she describes as insignificant, I didn't need this. Pt reports side effects with risperidone- restless leg. She reports feeling dizzy with olanzapine but taking it at night. She denies SI/HI. She reports she may not be able to return to apartment, asks if she can he assisted with housing arrangements but at same time pt asking to be discharged as soon as possible. Per nursing, pt slept through the night. Pt carrying her belonging, still presents as very guarded and suspicious. At some point during our conversation, pt asked this selling underwriter if I was spiritual, pt asked, How do you explain that? pointing at ceiling. This selling underwriter asked to elaborate what she was referring to, but pt did not provide more details. Pt continues to report her lung doctor told her not to take eliquis and this being reason for her declining it. She reports she does not believe in medications and knows that medications are very harmful. This selling underwriter reflected that Dr. Louis had reached out to prescribing doctor of Eliquis, Dr. Polanco- pt reports she does not know this doctor. BUt unable to tell this selling underwriter name of doctor. Diagnostics Vital Signs (24Hr): Vital Signs - 24 hr 01/28/23 08:50 01/28/23 18:00 Temperature 97 F Pulse Rate 84 64 Respiratory Rate 18 16 Blood Pressure 123/72 129/70 Pulse Oximetry 100 100 Oxygen Delivery Method Room Air Room Air BMI result Body Mass Index 22.3 Medications Medications Current Medications Acetaminophen (Acetaminophen 325 Mg Tablet) 650 mg PO Q6H PRN PRN Reason: Headache/Pain Mild Scale (1-3) Al Hydroxide/Mg Hydroxide (Magnesium Hydrox/Alum Hydrox 30 Ml Oral.Susp) 30 ml PO Q6H PRN PRN Reason: Heartburn/Nausea Apixaban (Apixaban 2.5 Mg Tablet) 2.5 mg PO BID MARITA Last Admin: 01/29/23 08:43 Dose: Not Given Benzocaine (Throat Lozenge, Medicated Lozenge) 1 lozenge MUCOUS MEM Q2H PRN PRN Reason: Sore Throat Lorazepam (Lorazepam 1 Mg Tablet) 1 mg PO BID PRN PRN Reason: Anxiety Last Admin: 01/28/23 20:30 Dose: 1 mg Magnesium Hydroxide (Milk Of Magnesia 30 Ml Oral.Susp) 30 ml PO DAILY PRN PRN Reason: Constipation Olanzapine (Olanzapine 10 Mg Vial) 5 mg IM DAILY PRN PRN Reason: if refuses PO; court order Olanzapine (Olanzapine 5 Mg Tablet) 5 mg PO BEDTIME MARITA Last Admin: 01/28/23 20:30 Dose: 5 mg Polyethyl Glycol/Propylene Glycol (Propylene Glycol/Peg 400 Gel Eye Drops 10ml) 1 drop EYE-BOTH BID PRN PRN Reason: dry eyes Trazodone HCl (Trazodone Hcl 50 Mg Tablet) 50 mg PO BEDTIME MRX1 PRN PRN Reason: Insomnia Allergies Allergies Allergy/AdvReac Type Severity Reaction Status Date / Time amoxicillin Allergy Unknown Verified 01/08/23 03:36 codeine Allergy Unknown Verified 01/08/23 03:36 diphenhydramine Allergy Unknown Verified 01/08/23 03:36 [From Benadryl] Assessment & Plan Assessment & Plan (1) Schizophrenia: Status: Acute Code(s): F20.9 - Schizophrenia, unspecified Assessment and Plan: 01/18 CTP 01/19 not really able to engage patient - Plan HPI: Patient is a 67-year-old female with history of schizophrenia, history of PE (2019) who presents after her brother took patient to ED for worsening paranoid delusions and AVH in the face of increased psychosocial stressors including her father's recent . In [place] [facility] patient was vocalizing that she is worried the FBI is out to get her; reported to emergency room staff she was seeing demons and spirits, feeling unsafe in her apartment due to a demon attack, seen flashing lights? and that the demons were demanding to leave her apartment and that she feels afraid in her apartment ? she also said that she is declining in health and unable to eat or sleep. At 1 point patient was agitated and got Haldol IM. Told ED provider she stopped Risperdal because she was feeling foggy; at a different time she told staff it was making her legs restless. Impression: pt has hx of psychotic disorder and admission to [facility]; however, she's been stable for 10 years on Risperdal (and possibly remained so after she reportedly discontinued it a year or so ago). It seems that the emotional stress of her fathers has triggered return of psychotic symptoms. ED provider and collateral from sister report that patient for past weeks and days patient has been dysregulated by paranoid delusions and AH which are interfering in her life. However, currently on the unit, she is presenting as organized in both speech and behavior, denying any AVH or paranoid thinking and not expressing any delusional ideation. Given patient's history, ED report, her brothers and sisters concern, and refusal to restart antipsychotic medication, will hold onto patient for now to better assess her safety and ability to function in the community. -Reviewed labs from [place] [facility]: CBC, lytes, BUN/creatinine, calcium, TSH WNL; Negative COVID; UA with elevated leukocyte Estrace however negative nitrate; no report of urinary symptoms; refused to have admission physical. of note, patient reported that she went to [place] ED because of neck pain, choking and swallowing issues; she says these have remained fully resolved (At ED Patient reported she brought up her somatic complaints her doctors and that she had a recent endoscopy, stress test, swallow test all results unremarkable). Hospital course: 01/09 remains without any insight, is irritable and wants discharge; she denies that she ever told ED staff anything about AVH, paranoid thoughts, demons; denies that any of the events reported by ED staff or sister are true. Says she does not have any history psychiatric illness. Patient refused Eliquis Denies that she is on omeprazole or any other medication; does not want to discuss her medical history 01/10 no change in presentation; remains without insight; denies all collateral reports. Refusing Eliquis despite selling underwriter's concern explanation of risks of not taking Eliquis 01/12/23 continue current plan of care. 01/[address] involuntary commitment. Patient continues to have psychotic symptoms and told her therapist that she is currently being accuse by this selling underwriter of wanting to hurt baby's. Patient continues to have no insight. She is afraid to go back to apartment due to paranoid delusions; pt told sister (and this selling underwriter) that she was planning to go stay at her mother's; sister is very afraid for their mothers safety and said if patient is discharged she will immediately pursue a restraining order; she is not taking prescribed Eliquis to prevent pulmonary embolism; patient is presenting with similar symptoms that resulted in past involuntary commitment at a [facility] after she threatened to kill her mother, father and sister. Patient has demonstrated that she is able to be safe and stable in the community on medication and by all accounts, including her own, had a very nice and enjoyable life while on antipsychotic medication. There is a strong concern that patient will continue to further decompensate if she does not get back on antipsychotic medication. 01/15 no change in presentation; no insight, remains adamant about not having any psychiatric illness and that she should be discharged. Says that her family has no concerns about her and not able to tolerate hearing otherwise Reiterated montague warning 01/16 patient remains without insight; continues to refuse all medication 01/17 no change in presentation; will continue to pursue involuntary commitment scheduled for 01/21/23 at 11:00 01/20 no change in presentation; continue with current plan for involuntary commitment 01/21 pt involuntarily committed; will see if can gather collateral from past prescriber to clarify med trials -came to writers attention that pt c/o to ancillary staff burning sensation in leg on 01/11; will clarify which leg and order doppler 01/22 no change in presentation; pt agreed to do doppler but then refused. 01/23 patient acknowledged she had auditory hallucinations in her apartment and was feeling threatened and that is why she left. Starting Zyprexa 5 mg 01/24 continue current treatment plan 01/26 patient complains of medication side effects saying the cause dry mouth, slurring of words, making it hard for her to talk; neither selling underwriter nor staff has observed any of the symptoms however will continue to monitor patient for such symptoms and evaluate whether medication changes are needed. 01/27 no change in presentation; continues to be without insight and wants discharge. However she is amenable to transferring to the geriatric unit to be around peers *Patient making opening and closing movements with her mouth. Emr Specialist inquired if this was a side effect from the medication however patient said no it's just does her ears feel clogged up and she is trying to unclog them Could possibly be TD Plan: Involuntary commitment and substituted judgment -q15 min checks Continue Zyprexa/Zydis 5 mg q.h.s.: Court ordered, patient cannot refuse; give a Zyprexa IM if refuses p.o. Zyprexa IM 5 mg q.h.s. p.r.n. if patient refuses Zyprexa p.o. -Continue Eliquis 2.5 mg b.i.d., selling underwriter contacted patient's outpatient prescriber Dr. Nelda Rodriguez [facility] who communicated to selling underwriter that patient is supposed to remain on Eliquis court ordered substituted judgment: risperdal fluphenazine Haloperidol Perphenazine Abilify Clozapine Olanzapine Paliperidione Seroquel Ziprasidone COLLATERAL: Patient has a 3 day notice wanting discharge. In order to assess patient's safety and ability to return to the community, selling underwriter obtained collateral from patient's sister Danielle, who knows patient is on the psych unit at [facility] and called the social work nurse yesterday to provide information. Emr Specialist did not give out any information. Danielle reports that 10 years ago patient severely decompensated and threatened to kill her and their parents, which resulted in psychiatric hospitalization at a [facility]. Patient was started on Risperdal and afterwards did quite well however was never able to work again and in fact has not been working since the , on disability instead. Danielle reports that they have been concerned about patient for several months, feeling that she's been decompensated little by little and that she is exhibiting the very same behaviors that led to her hospitalization 10 years ago. She says that the past few weeks, patient home health aide and friend have been reaching out to sister, saying that something is willing different about patient and that she needs help, afraid she might hurt herself. Danielle reports that at their father's wake, she went to her brother's car and started screaming; she said her father was trying to pull her out of her body to join him. She corroborates with the report from [place] ED it patient has been expressing paranoid delusions that satanic people, demons are after her that they are shooting a pathway to her neighbors and healing her neighbors but not her... Danielle says patient for currently calls her on the phone screaming over and over; she is insisting that she be relocated, that her sister get the government to relocate her because she is not safe in her apartment, someone is there trying to hurt her, she is hearing babies screaming... And is unable to be redirected or accept Danielle's answers. Danielle says patient was very concerned that her brother was a zombie; said the healthcare person the comes to her house was an imposter... She said that patient has been saying she plans to move in with her mother. Danielle is very fearful of this since patient threatened to kill her mother 10 years ago when she had similarly decompensated and she said that there is no way she will allow patient to live with their mother. Danielle reports that her brother Parker, the one who drove her to the emergency room this past week is the healthcare proxy. Patient's therapist called wanting to talk with selling underwriter; selling underwriter asked patient and patient said yes she wants this selling underwriter to talk with her therapist Neva. Patient continues to refuse all medication including Eliquis. Emr Specialist spoke with Neva, outpatient therapist who has known her since 2011 after she was discharged from [facility]. She reports that patient has never acknowledged any psychiatric illness of any kind. Overall these years patient has remained stable and able to care for self in the community. The sometime patient would make a delusional comment about being electronically scanned daily, and would have some would seem to be somatic physical complaints; otherwise no psychotic symptoms present until now. Therapist thinks patient was taking her medications until about a few months ago. She agrees that the of her father and emotional fall out has worsened symptoms. Therapist has concerns about patient recovering and further decompensating if she remains off medications and said she would recommend that patient get back on medications. Therapist told selling underwriter that patient complained to her that selling underwriter and staff for lying to her and accusing her of hurting baby's. Last week Patient told selling underwriter that her brother Parker was her healthcare proxy; patient's sister Danielle confirm this. Emr Specialist called Parker on 01/10 in order to collect information, collateral to further assess if patient is safe to return to the community since she remains adamant about being discharged. Patient's brother her expressed that he is very concerned and feels that if she is not treated, getting back on medications she will end up quickly worsening. He said that 10 years ago following [facility] admission, she emerged doing much better and remained so on medication for most of the next decade. Parker thinks patient may have been on a community Adan. He only recently learned that she stopped taking her medications about a year ago. He agrees with Danielle that patient has slowly been decompensating over the past few months. Over the past few weeks, she has been expressing paranoid delusions saying that she is being scanned by electronic scanners... And making comments about satanic rituals going on in her apartment. Reports she has numerous body complaints about her body parts not functioning though she is always found to be in good medical condition; saying that her skin is black... She called [employer] (who oversees her apartment) and complained that there was something bad in her apartment, de Karla activities, blue light coming from the haas, something trying to imprint on her, something about hurting baby's... He said [employer] came over to inspect but nothing was found. Her brother reports that this past week, she also called 911 saying she was being attacked demonically, satanic rituals in her apartment; the police came up but of again found nothing. Parker says he has the police report and explained to his sister that she is not well, that she needs medication however patient denied there was anything wrong, even denied that she had called 911... Patient asked Parker to bring her to the hospital for neck pain during which time patient was placed Section 12. Patient's brother reiterates that if she is not treated with medication he is afraid she will continue to get worse; says she has been saying she does not want to go back to her apartment, but wants to live with their mother, which Parker says is not an option. Patient educated on: diagnosis and medication risk/benefits Informed Consent: understands Reason for continued inpatient stay Substantial Risk for: inability to function Time Spent With Patient Time: Total time managing care of this patient today ____ minutes.
--- NOTE | 2023-01-29 13:45 | MHC.CLN ---
NUTRITION PATIENT REQUESTING ENSURE MAX PROTEIN ONE TIME DAILY. STATED THAT TAKES AT HOME FOR ADDITIONAL PROTEIN, VITAMINS, MINERALS. RD ORDERED FOR BID (300 KCALS, 60 G PROTEIN). ALERTED KITCHEN STAFF THAT OK TO SEND ONE TIME DAILY IF PATIENT PREFERS. ATE 100% TODAY AT BREAKFAST AND 25% AT LUNCH. RD TO FOLLOW UP WEEKLY.
--- NOTE | 2023-01-29 17:13 | HO.PSYCHPN ---
Subjective Subjective Date of Service: 01/28/23 Reason For Visit: F29 unspecified psychosis Interim History: Late entry note for patient seen 01/28 Patient remains Diagnostics Vital Signs (24Hr): Vital Signs - 24 hr 01/28/23 18:00 01/29/23 06:00 Temperature 97 F Pulse Rate 64 88 Respiratory Rate 16 16 Blood Pressure 129/70 124/59 L Pulse Oximetry 100 96 Oxygen Delivery Method Room Air Room Air BMI result Body Mass Index 22.3 Medications Medications Current Medications Acetaminophen (Acetaminophen 325 Mg Tablet) 650 mg PO Q6H PRN PRN Reason: Headache/Pain Mild Scale (1-3) Al Hydroxide/Mg Hydroxide (Magnesium Hydrox/Alum Hydrox 30 Ml Oral.Susp) 30 ml PO Q6H PRN PRN Reason: Heartburn/Nausea Apixaban (Apixaban 2.5 Mg Tablet) 2.5 mg PO BID [facility] Last Admin: 01/29/23 08:43 Dose: Not Given Benzocaine (Throat Lozenge, Medicated Lozenge) 1 lozenge MUCOUS MEM Q2H PRN PRN Reason: Sore Throat Lorazepam (Lorazepam 1 Mg Tablet) 1 mg PO BID PRN PRN Reason: Anxiety Last Admin: 01/28/23 20:30 Dose: 1 mg Magnesium Hydroxide (Milk Of Magnesia 30 Ml Oral.Susp) 30 ml PO DAILY PRN PRN Reason: Constipation Olanzapine (Olanzapine 10 Mg Vial) 5 mg IM DAILY PRN PRN Reason: if refuses PO; court order Olanzapine (Olanzapine 5 Mg Tablet) 5 mg PO BEDTIME [facility] Last Admin: 01/28/23 20:30 Dose: 5 mg Polyethyl Glycol/Propylene Glycol (Propylene Glycol/Peg 400 Gel Eye Drops 10ml) 1 drop EYE-BOTH BID PRN PRN Reason: dry eyes Trazodone HCl (Trazodone Hcl 50 Mg Tablet) 50 mg PO BEDTIME PRN PRN Reason: Insomnia Allergies Allergies Allergy/AdvReac Type Severity Reaction Status Date / Time amoxicillin Allergy Unknown Verified 01/08/23 03:36 codeine Allergy Unknown Verified 01/08/23 03:36 diphenhydramine Allergy Unknown Verified 01/08/23 03:36 [From Benadryl] Assessment & Plan Assessment & Plan (1) Schizophrenia: Status: Acute Code(s): F20.9 - Schizophrenia, unspecified Assessment and Plan: 01/18 CTP 01/19 not really able to engage patient - Plan HPI: Patient is a 67-year-old female with history of schizophrenia, history of PE (2019) who presents after her brother took patient to ED for worsening paranoid delusions and AVH in the face of increased psychosocial stressors including her father's recent . In [place] ED patient was vocalizing that she is worried the FBI is out to get her; reported to emergency room staff she was seeing demons and spirits, feeling unsafe in her apartment due to a demon attack, seen flashing lights? and that the demons were demanding to leave her apartment and that she feels afraid in her apartment ? she also said that she is declining in health and unable to eat or sleep. At 1 point patient was agitated and got Haldol IM. Told ED provider she stopped Risperdal because she was feeling foggy; at a different time she told staff it was making her legs restless. Impression: pt has hx of psychotic disorder and admission to [facility]; however, she's been stable for 10 years on Risperdal (and possibly remained so after she reportedly discontinued it a year or so ago). It seems that the emotional stress of her fathers has triggered return of psychotic symptoms. ED provider and collateral from sister report that patient for past weeks and days patient has been dysregulated by paranoid delusions and AH which are interfering in her life. However, currently on the unit, she is presenting as organized in both speech and behavior, denying any AVH or paranoid thinking and not expressing any delusional ideation. Given patient's history, ED report, her brothers and sisters concern, and refusal to restart antipsychotic medication, will hold onto patient for now to better assess her safety and ability to function in the community. -Reviewed labs from [place] ED: CBC, lytes, BUN/creatinine, calcium, TSH WNL; Negative COVID; UA with elevated leukocyte Estrace however negative nitrate; no report of urinary symptoms; refused to have admission physical. of note, patient reported that she went to [place] ED because of neck pain, choking and swallowing issues; she says these have remained fully resolved (At ED Patient reported she brought up her somatic complaints her doctors and that she had a recent endoscopy, stress test, swallow test all results unremarkable). Hospital course: 01/09 remains without any insight, is irritable and wants discharge; she denies that she ever told ED staff anything about AVH, paranoid thoughts, demons; denies that any of the events reported by ED staff or sister are true. Says she does not have any history psychiatric illness. Patient refused Eliquis Denies that she is on omeprazole or any other medication; does not want to discuss her medical history 01/10 no change in presentation; remains without insight; denies all collateral reports. Refusing Eliquis despite play writer's concern explanation of risks of not taking Eliquis 01/12/23 continue current plan of care. 01/[address] for involuntary commitment. Patient continues to have psychotic symptoms and told her therapist that she is currently being accuse by this play writer of wanting to hurt baby's. Patient continues to have no insight. She is afraid to go back to apartment due to paranoid delusions; pt told sister (and this play writer) that she was planning to go stay at her mother's; sister is very afraid for their mothers safety and said if patient is discharged she will immediately pursue a restraining order; she is not taking prescribed Eliquis to prevent pulmonary embolism; patient is presenting with similar symptoms that resulted in past involuntary commitment at a [facility] after she threatened to kill her mother, father and sister. Patient has demonstrated that she is able to be safe and stable in the community on medication and by all accounts, including her own, had a very nice and enjoyable life while on antipsychotic medication. There is a strong concern that patient will continue to further decompensate if she does not get back on antipsychotic medication. 01/15 no change in presentation; no insight, remains adamant about not having any psychiatric illness and that she should be discharged. Says that her family has no concerns about her and not able to tolerate hearing otherwise Reiterated [place]ague warning 01/16 patient remains without insight; continues to refuse all medication 01/17 no change in presentation; will continue to pursue involuntary commitment scheduled for 01/21/23 at 11:00 01/20 no change in presentation; continue with current plan for involuntary commitment 01/21 pt involuntarily committed; will see if can gather collateral from past prescriber to clarify med trials -came to writers attention that pt c/o to ancillary staff burning sensation in leg on 01/11; will clarify which leg and order doppler 01/22 no change in presentation; pt agreed to do doppler but then refused. 01/23 patient acknowledged she had auditory hallucinations in her apartment and was feeling threatened and that is why she left. Starting Zyprexa 5 mg 01/24 continue current treatment plan 01/26 patient complains of medication side effects saying the cause dry mouth, slurring of words, making it hard for her to talk; neither play writer nor staff has observed any of the symptoms however will continue to monitor patient for such symptoms and evaluate whether medication changes are needed. 01/27 no change in presentation; continues to be without insight and wants discharge. However she is amenable to transferring to the geriatric unit to be around peers *Patient making opening and closing movements with her mouth. Foreign Correspondent inquired if this was a side effect from the medication however patient said no it's just does her ears feel clogged up and she is trying to unclog them Could possibly be TD Plan: Involuntary commitment and substituted judgment -q15 min checks Continue Zyprexa/Zydis 5 mg q.h.s.: Court ordered, patient cannot refuse; give a Zyprexa IM if refuses p.o. Zyprexa IM 5 mg q.h.s. p.r.n. if patient refuses Zyprexa p.o. -Continue Eliquis 2.5 mg b.i.d., play writer contacted patient's outpatient prescriber Dr. Nelda gonzalez who communicated to play writer that patient is supposed to remain on Eliquis court ordered substituted judgment: risperdal fluphenazine Haloperidol Perphenazine Abilify Clozapine Olanzapine Paliperidione Seroquel Ziprasidone COLLATERAL: Patient has a 3 day notice wanting discharge. In order to assess patient's safety and ability to return to the community, play writer obtained collateral from patient's sister Danielle, who knows patient is on the psych unit at [facility] and called the health care social worker yesterday to provide information. Foreign Correspondent did not give out any information. Danielle reports that 10 years ago patient severely decompensated and threatened to kill her and their parents, which resulted in psychiatric hospitalization at a [facility]. Patient was started on Risperdal and afterwards did quite well however was never able to work again and in fact has not been working since the , on disability instead. Danielle reports that they have been concerned about patient for several months, feeling that she's been decompensated little by little and that she is exhibiting the very same behaviors that led to her hospitalization 10 years ago. She says that the past few weeks, patient home health aide and friend have been reaching out to sister, saying that something is willing different about patient and that she needs help, afraid she might hurt herself. Danielle reports that at their father's wake, she went to her brother's car and started screaming; she said her father was trying to pull her out of her body to join him. She corroborates with the report from [facility] it patient has been expressing paranoid delusions that satanic people, demons are after her that they are shooting a pathway to her neighbors and healing her neighbors but not her... Danielle says patient for currently calls her on the phone screaming over and over; she is insisting that she be relocated, that her sister get the government to relocate her because she is not safe in her apartment, someone is there trying to hurt her, she is hearing babies screaming... And is unable to be redirected or accept Danielle's answers. Danielle says patient was very concerned that her brother was a zombie; said the healthcare person the comes to her house was an imposter... She said that patient has been saying she plans to move in with her mother. Danielle is very fearful of this since patient threatened to kill her mother 10 years ago when she had similarly decompensated and she said that there is no way she will allow patient to live with their mother. Danielle reports that her brother Parker, the one who drove her to the emergency room this past week is the healthcare proxy. Patient's therapist called wanting to talk with play writer; play writer asked patient and patient said yes she wants this play writer to talk with her therapist Neva. Patient continues to refuse all medication including Eliquis. Foreign Correspondent spoke with Neva, outpatient therapist who has known her since 2011 after she was discharged from [facility]. She reports that patient has never acknowledged any psychiatric illness of any kind. Overall these years patient has remained stable and able to care for self in the community. The sometime patient would make a delusional comment about being electronically scanned daily, and would have some would seem to be somatic physical complaints; otherwise no psychotic symptoms present until now. Therapist thinks patient was taking her medications until about a few months ago. She agrees that the of her father and emotional fall out has worsened symptoms. Therapist has concerns about patient recovering and further decompensating if she remains off medications and said she would recommend that patient get back on medications. Therapist told play writer that patient complained to her that play writer and staff for lying to her and accusing her of hurting baby's. Last week Patient told play writer that her brother Parker was her healthcare proxy; patient's sister Danielle confirm this. Foreign Correspondent called Parker on 01/10 in order to collect information, collateral to further assess if patient is safe to return to the community since she remains adamant about being discharged. Patient's brother her expressed that he is very concerned and feels that if she is not treated, getting back on medications she will end up quickly worsening. He said that 10 years ago following [facility] admission, she emerged doing much better and remained so on medication for most of the next decade. Parker thinks patient may have been on a community Adan. He only recently learned that she stopped taking her medications about a year ago. He agrees with Danielle that patient has slowly been decompensating over the past few months. Over the past few weeks, she has been expressing paranoid delusions saying that she is being scanned by electronic scanners... And making comments about satanic rituals going on in her apartment. Reports she has numerous body complaints about her body parts not functioning though she is always found to be in good medical condition; saying that her skin is black... She called [employer] (who oversees her apartment) and complained that there was something bad in her apartment, de Karla activities, blue light coming from the haas, something trying to imprint on her, something about hurting baby's... He said [employer] came over to inspect but nothing was found. Her brother reports that this past week, she also called 911 saying she was being attacked demonically, satanic rituals in her apartment; the police came up but of again found nothing. Parker says he has the police report and explained to his sister that she is not well, that she needs medication however patient denied there was anything wrong, even denied that she had called 911... Patient asked Parker to bring her to the hospital for neck pain during which time patient was placed Section 12. Patient's brother reiterates that if she is not treated with medication he is afraid she will continue to get worse; says she has been saying she does not want to go back to her apartment, but wants to live with their mother, which Parker says is not an option. Time Spent With Patient Time: Total time managing care of this patient today ____ minutes.
[2023-01-29 18:00] VITALS: BP 131/62; PULSE 68; RESP 18; TEMP 36.1; O2SAT 100
[2023-01-29] MEDS: OLANZapine 5 MG TABLET PO (20:36)
[2023-01-29] MEDS: LORazepam 1 MG TABLET PO (20:36)
[2023-01-30 08:00] VITALS: BP 120/59; PULSE 69; RESP 18; O2SAT 98
[2023-01-30 11:11] VITALS: BMI 21.0
--- NOTE | 2023-01-30 16:00 | HO.PSYCHPN ---
Subjective Subjective Date of Service: 01/30/23 Reason For Visit: F29 unspecified psychosis Subjective Notes: Section 8 Interim History: Pt slept through the night. Pt hesitant about going back to apartment as she worries about supra natural forces, pt clarifies is not demons but agrees that she believes is a force, not human which she reports spiritual counselor more familiar and helpful than psychiatric treatment. She worries that this force/spirit still in her apartment and broke her TV. She denies SI/HI. No signs of aggression towards self or others. Pt carries brown bag with belongings. Diagnostics Vital Signs (24Hr): Vital Signs - 24 hr 01/29/23 18:00 01/30/23 08:00 Temperature 97 F Pulse Rate 68 69 Respiratory Rate 18 18 Blood Pressure 131/62 120/59 L Pulse Oximetry 100 98 Oxygen Delivery Method Room Air Room Air BMI result Body Mass Index 21.0 Medications Medications Current Medications Acetaminophen (Acetaminophen 325 Mg Tablet) 650 mg PO Q6H PRN PRN Reason: Headache/Pain Mild Scale (1-3) Al Hydroxide/Mg Hydroxide (Magnesium Hydrox/Alum Hydrox 30 Ml Oral.Susp) 30 ml PO Q6H PRN PRN Reason: Heartburn/Nausea Apixaban (Apixaban 2.5 Mg Tablet) 2.5 mg PO BID [facility] Last Admin: 01/30/23 10:29 Dose: Not Given Benzocaine (Throat Lozenge, Medicated Lozenge) 1 lozenge MUCOUS MEM Q2H PRN PRN Reason: Sore Throat Lorazepam (Lorazepam 1 Mg Tablet) 1 mg PO BID PRN PRN Reason: Anxiety Last Admin: 01/29/23 20:36 Dose: 1 mg Magnesium Hydroxide (Milk Of Magnesia 30 Ml Oral.Susp) 30 ml PO DAILY PRN PRN Reason: Constipation Olanzapine (Olanzapine 10 Mg Vial) 5 mg IM DAILY PRN PRN Reason: if refuses PO; court order Olanzapine (Olanzapine 5 Mg Tablet) 5 mg PO BEDTIME [facility] Last Admin: 01/29/23 20:36 Dose: 5 mg Polyethyl Glycol/Propylene Glycol (Propylene Glycol/Peg 400 Gel Eye Drops 10ml) 1 drop EYE-BOTH BID PRN PRN Reason: dry eyes Trazodone HCl (Trazodone Hcl 50 Mg Tablet) 50 mg PO BEDTIME PRN PRN Reason: Insomnia Allergies Allergies Allergy/AdvReac Type Severity Reaction Status Date / Time amoxicillin Allergy Unknown Verified 01/08/23 03:36 codeine Allergy Unknown Verified 01/08/23 03:36 diphenhydramine Allergy Unknown Verified 01/08/23 03:36 [From Benadryl] Assessment & Plan Assessment & Plan (1) Schizophrenia: Status: Acute Code(s): F20.9 - Schizophrenia, unspecified Plan 01/30- continue current tx. may increase olanzapine to 7.5mg po qhs. ideally pt should be on HIGUERA as she has no insight into need for tx. No aggression towards self or others. Reason for continued inpatient stay Substantial Risk for: inability to function Time Spent With Patient Time: Total time managing care of this patient today ____ minutes.
[2023-01-30 18:00] VITALS: BP 116/62; PULSE 87; RESP 18; O2SAT 96
[2023-01-30] MEDS: LORazepam 1 MG TABLET PO (20:27)
[2023-01-30] MEDS: OLANZapine 5 MG TABLET PO (20:27)
[2023-01-31 09:31] VITALS: BP 131/57; PULSE 72; RESP 18; O2SAT 100
--- NOTE | 2023-01-31 14:15 | HO.PSYCHPN ---
Subjective Subjective Date of Service: 01/31/23 Reason For Visit: F29 unspecified psychosis Subjective Notes: Section 8 Interim History: Pt slept through the night. Pt demanding to be discharged today. However, pt still fearful of returning to her apartment as she worries spirits or devil will be there. She is very guarded about what she says and worries that admitting to some of her beliefs will keep her here longer. Pt demands discharge stating her lung doctor demanded that she be discharged and not given psychotropic medications, however, we have not receive any messages from her doctors regarding this. Pt also reports she can't go home via lyft as she does not trust driver license examiner unless this fiction writer knows him, which this fiction writer explain that is not the case. Either way, any attempt to discuss that her fears are part of delusions and need for medications are unproductive. Pt carries brown bag with belongings. Visible on the unit but guarded. Medication Compliance: Yes Mental Status Exam Mental Status Exam Narrative: Appearance: casually groomed, good hygine, in NAD Behavior: guarded, irritable at times Psychomotor: no agitation or retardation noted Speech: clear, normal rate/rhythm/volume, spontaneous TP: linear TC: paranoid about spirits still in her apartment, not feeling safe going home on a lyft Mood: not well here SI: none HI: none VH/AH: none Delusions: paranoid delusions of spirits in her apartment, not feeling safe, guarded and mistrustful Insight/judgment: fair x 2. Memory/cog: alert, oriented x 3. grossly intact to conversational testing. Diagnostics Vital Signs (24Hr): Vital Signs - 24 hr 01/30/23 18:00 01/31/23 09:31 Pulse Rate 87 72 Respiratory Rate 18 18 Blood Pressure 116/62 131/57 L Pulse Oximetry 96 100 Oxygen Delivery Method Room Air Room Air BMI result Body Mass Index 21.0 Medications Medications Current Medications Acetaminophen (Acetaminophen 325 Mg Tablet) 650 mg PO Q6H PRN PRN Reason: Headache/Pain Mild Scale (1-3) Al Hydroxide/Mg Hydroxide (Magnesium Hydrox/Alum Hydrox 30 Ml Oral.Susp) 30 ml PO Q6H PRN PRN Reason: Heartburn/Nausea Apixaban (Apixaban 2.5 Mg Tablet) 2.5 mg PO BID [facility] Last Admin: 01/31/23 10:03 Dose: Not Given Benzocaine (Throat Lozenge, Medicated Lozenge) 1 lozenge MUCOUS MEM Q2H PRN PRN Reason: Sore Throat Lorazepam (Lorazepam 1 Mg Tablet) 1 mg PO BID PRN PRN Reason: Anxiety Last Admin: 01/30/23 20:27 Dose: 1 mg Magnesium Hydroxide (Milk Of Magnesia 30 Ml Oral.Susp) 30 ml PO DAILY PRN PRN Reason: Constipation Olanzapine (Olanzapine 10 Mg Vial) 5 mg IM DAILY PRN PRN Reason: if refuses PO; court order Olanzapine (Olanzapine 7.5 Mg Tablet) 7.5 mg PO BEDTIME [facility] Polyethyl Glycol/Propylene Glycol (Propylene Glycol/Peg 400 Gel Eye Drops 10ml) 1 drop EYE-BOTH BID PRN PRN Reason: dry eyes Trazodone HCl (Trazodone Hcl 50 Mg Tablet) 50 mg PO BEDTIME PRN PRN Reason: Insomnia Allergies Allergies Allergy/AdvReac Type Severity Reaction Status Date / Time amoxicillin Allergy Unknown Verified 01/08/23 03:36 codeine Allergy Unknown Verified 01/08/23 03:36 diphenhydramine Allergy Unknown Verified 01/08/23 03:36 [From Benadryl] Assessment & Plan Assessment & Plan (1) Schizophrenia: Status: Acute Code(s): F20.9 - Schizophrenia, unspecified Plan 01/30- continue current tx. may increase olanzapine to 7.5mg po qhs. ideally pt should be on HIGUERA as she has no insight into need for tx. No aggression towards self or others. 01/31 increase olanzapine to 7.5mg po qhs. Reason for continued inpatient stay Substantial Risk for: inability to function Time Spent With Patient Time: Total time managing care of this patient today ____ minutes.
[2023-01-31 19:40] VITALS: BP 129/60; PULSE 70; O2SAT 99
[2023-01-31] MEDS: LORazepam 1 MG TABLET PO (21:09)
[2023-01-31] MEDS: OLANZapine 7.5 MG TABLET PO (21:35)
--- NOTE | 2023-01-31 23:13 | PC.NURSE ---
pt is a+o x3, approached pt in room resting in bed. Pt became upset after realizing her zyprexa looks different in shape and there is an increase in dose to 7.5 because according to her, NOBODY discussed it with her to increase her dose. she initially refused to take her zyprexa stating this is not the medication I am used to taking. I take a white, round pill I informed SHOWROOM CONSULTANT, Selena about pt's concerns and refusal to take zyprexa. per SHOWROOM CONSULTANT, either pt takes po, or IM zyprexa with the help of security or paliperidone? pt stated she is not going to take any increased dose zyprexa be it po or IM, she will only take 5mg zyprexa because she is doing OKAY with thatDOSE. After lengthy discussions and explanation regarding her inability to refuse med. as per court order, pt agreed to take medication still upset though and threatens to corby this RN and the Dr if she experiences any side effect from the increased dose of the zyprexa.
--- NOTE | 2023-01-31 23:16 | PC.NURSE ---
pt is a+o x3, THis RN approached pt in room resting in bed. Pt immediately became upset after realizing her zyprexa medication looks different in shape and there is an increase in dose to 7.5 because according to pt, NOBODY discusseed it with her to increase her dose. she initially refused to take her zyprexa stating this is not the medication I am used to taking. I take a white, round pill ELIZABETH PALM notified of pt's refusal to take zyprexa 7.5mg po even though its court ordered. NÉSTOR JOHNSON recommended either pt takes po zyprexa 7.5mg or will give it IM wih the help of security or if pt wants to take paliperidone instead. pt stated she is not going to take any increased dose zyprexa be it PO or IM, she will only take 5mg zyprexa because she is doing OKAY with that. After lengthy discussions and explanation regarding her inability to refuse this medication as per court orders, pt agreed to take medication but still upset though and threatens to corby this RN and the Doctor if she experiences any side effects from the increased dose of the zyprexa. This RN encouraged pt to discuss her concerns in the morning with the Doctor and social service agency director if the need be.
--- NOTE | 2023-02-01 09:53 | HO.PSYCHPN ---
Subjective Subjective Date of Service: 02/02/23 Reason For Visit: F29 unspecified psychosis Subjective Notes: Section 8 Interim History: Pt slept through the night, upset about olanzapine increase. She continues to present with paranoid ideas and suspicious but overall no imminent safety concerns. No insight into need for psychiatric care or medications. Pt denies SI/HI. She agrees to return to her apartment. Left VM to her brother with information about dc on Friday. No behavioral concerns. Pt carries brown bag with belongings. Visible on the unit but guarded. Medication Compliance: Yes Mental Status Exam Mental Status Exam Narrative: Appearance: casually groomed, good hygine, in NAD Behavior: guarded, irritable at times Psychomotor: no agitation or retardation noted Speech: clear, normal rate/rhythm/volume, spontaneous TP: linear TC: paranoid about spirits still in her apartment, not feeling safe going home on a lyft Mood: not well here SI: none HI: none VH/AH: none Delusions: paranoid delusions of spirits in her apartment, not feeling safe, guarded and mistrustful Insight/judgment: fair x 2. Memory/cog: alert, oriented x 3. grossly intact to conversational testing. Diagnostics Vital Signs (24Hr): Vital Signs - 24 hr 01/31/23 19:40 Pulse Rate 70 Blood Pressure 129/60 Pulse Oximetry 99 Oxygen Delivery Method Room Air BMI result Body Mass Index 21.0 Medications Medications Current Medications Acetaminophen (Acetaminophen 325 Mg Tablet) 650 mg PO Q6H PRN PRN Reason: Headache/Pain Mild Scale (1-3) Al Hydroxide/Mg Hydroxide (Magnesium Hydrox/Alum Hydrox 30 Ml Oral.Susp) 30 ml PO Q6H PRN PRN Reason: Heartburn/Nausea Apixaban (Apixaban 2.5 Mg Tablet) 2.5 mg PO BID MARITA Last Admin: 02/01/23 09:11 Dose: Not Given Benzocaine (Throat Lozenge, Medicated Lozenge) 1 lozenge MUCOUS MEM Q2H PRN PRN Reason: Sore Throat Lorazepam (Lorazepam 1 Mg Tablet) 1 mg PO BID PRN PRN Reason: Anxiety Last Admin: 01/31/23 21:09 Dose: 1 mg Magnesium Hydroxide (Milk Of Magnesia 30 Ml Oral.Susp) 30 ml PO DAILY PRN PRN Reason: Constipation Olanzapine (Olanzapine 7.5 Mg Tablet) 7.5 mg PO BEDTIME [facility] Last Admin: 01/31/23 21:35 Dose: 7.5 mg Olanzapine (Olanzapine 10 Mg Vial) 7.5 mg IM DAILY PRN PRN Reason: if refuses PO; court order Polyethyl Glycol/Propylene Glycol (Propylene Glycol/Peg 400 Gel Eye Drops 10ml) 1 drop EYE-BOTH BID PRN PRN Reason: dry eyes Trazodone HCl (Trazodone Hcl 50 Mg Tablet) 50 mg PO BEDTIME PRN PRN Reason: Insomnia Allergies Allergies Allergy/AdvReac Type Severity Reaction Status Date / Time amoxicillin Allergy Unknown Verified 01/08/23 03:36 codeine Allergy Unknown Verified 01/08/23 03:36 diphenhydramine Allergy Unknown Verified 01/08/23 03:36 [From Yoselyn] Assessment & Plan Assessment & Plan (1) Schizophrenia: Status: Acute Code(s): F20.9 - Schizophrenia, unspecified Plan 01/30- continue current tx. may increase olanzapine to 7.5mg po qhs. ideally pt should be on HIGUERA as she has no insight into need for tx. No aggression towards self or others. 01/31 increase olanzapine to 7.5mg po qhs. 02/01 continue tx. Reason for continued inpatient stay Substantial Risk for: inability to function Time Spent With Patient Time: Total time managing care of this patient today ____ minutes.
[2023-02-01 09:57] VITALS: BP 110/67; PULSE 99; RESP 18; O2SAT 99
[2023-02-01 18:00] VITALS: BP 122/64; PULSE 71; RESP 24; O2SAT 100
[2023-02-01] MEDS: OLANZapine 7.5 MG TABLET PO (21:09)
[2023-02-01] MEDS: LORazepam 1 MG TABLET PO (21:10)
--- NOTE | 2023-02-01 21:20 | PC.NURSE ---
PT AWAKE/ANXIOUS. STATES THE ONLY THING THAT HELPS ME SLEEP IS ATIVAN. PT REFUSES ELQUIS. PT ADMITS TO HAVING 3 PES IN THE PAST. HOWEVER, PT IS INSISTENT THAT SHE DOES NOT TAKE ELQUIS ANYMORE. PT STATES THAT HER DR STOPPED ELQUIS EARLIER IN THE YEAR. PT REFUSES ELQUIS.
[2023-02-02 08:29] VITALS: BP 129/62; PULSE 78; RESP 18; O2SAT 97
--- NOTE | 2023-02-02 12:25 | P.PNPSI_ITS ---
Subjective Subjective Date of Service: 02/02/23 Reason For Visit: F29 unspecified psychosis Subjective Notes: Section 8 Interim History: Pt slept through the night. Took medication with less resistance. Pt reports doing well. She denies SI/HI. She is noted to have left knee pain but declines any interventions or pain medications or lotion. Per nursing, pt slept through the night. No behavioral concerns. Medication Compliance: Yes Mental Status Exam Mental Status Exam Narrative: Appearance: casually groomed, good hygine, in NAD Behavior: guarded, irritable at times Psychomotor: no agitation or retardation noted Speech: clear, normal rate/rhythm/volume, spontaneous TP: linear TC: paranoid about spirits still in her apartment, not feeling safe going home on a lyft Mood: not well here SI: none HI: none VH/AH: none Delusions: paranoid delusions of spirits in her apartment, not feeling safe, guarded and mistrustful Insight/judgment: fair x 2. Memory/cog: alert, oriented x 3. grossly intact to conversational testing. Diagnostics Vital Signs (24Hr): Vital Signs - 24 hr 02/01/23 18:00 02/02/23 08:29 Pulse Rate 71 78 Respiratory Rate 24 H 18 Blood Pressure 122/64 129/62 Pulse Oximetry 100 97 Oxygen Delivery Method Room Air Room Air BMI result Body Mass Index 21.0 Medications Medications Current Medications Acetaminophen (Acetaminophen 325 Mg Tablet) 650 mg PO Q6H PRN PRN Reason: Headache/Pain Mild Scale (1-3) Al Hydroxide/Mg Hydroxide (Magnesium Hydrox/Alum Hydrox 30 Ml Oral.Susp) 30 ml PO Q6H PRN PRN Reason: Heartburn/Nausea Apixaban (Apixaban 2.5 Mg Tablet) 2.5 mg PO BID [facility] Last Admin: 02/02/23 09:04 Dose: Not Given Benzocaine (Throat Lozenge, Medicated Lozenge) 1 lozenge MUCOUS MEM Q2H PRN PRN Reason: Sore Throat Lorazepam (Lorazepam 1 Mg Tablet) 1 mg PO BID PRN PRN Reason: Anxiety Last Admin: 02/01/23 21:10 Dose: 1 mg Magnesium Hydroxide (Milk Of Magnesia 30 Ml Oral.Susp) 30 ml PO DAILY PRN PRN Reason: Constipation Olanzapine (Olanzapine 7.5 Mg Tablet) 7.5 mg PO BEDTIME [facility] Last Admin: 02/01/23 21:09 Dose: 7.5 mg Olanzapine (Olanzapine 10 Mg Vial) 7.5 mg IM DAILY PRN PRN Reason: if refuses PO; court order Polyethyl Glycol/Propylene Glycol (Propylene Glycol/Peg 400 Gel Eye Drops 10ml) 1 drop EYE-BOTH BID PRN PRN Reason: dry eyes Trazodone HCl (Trazodone Hcl 50 Mg Tablet) 50 mg PO BEDTIME PRN PRN Reason: Insomnia Allergies Allergies Allergy/AdvReac Type Severity Reaction Status Date / Time amoxicillin Allergy Unknown Verified 01/08/23 03:36 codeine Allergy Unknown Verified 01/08/23 03:36 diphenhydramine Allergy Unknown Verified 01/08/23 03:36 [From Benadryl] Assessment & Plan Assessment & Plan (1) Schizophrenia: Status: Acute Code(s): F20.9 - Schizophrenia, unspecified Plan 01/30- continue current tx. may increase olanzapine to 7.5mg po qhs. ideally pt should be on HIGUERA as she has no insight into need for tx. No aggression towards self or others. 01/31 increase olanzapine to 7.5mg po qhs. 02/01 continue tx. 02/02 continue tx. Reason for continued inpatient stay Substantial Risk for: inability to function Time Spent With Patient Time: Total time managing care of this patient today ____ minutes.
[2023-02-02 18:00] VITALS: BP 103/55; PULSE 60; RESP 18; TEMP 36.1; O2SAT 98
[2023-02-02] MEDS: OLANZapine 7.5 MG TABLET PO (20:54)
[2023-02-02] MEDS: LORazepam 1 MG TABLET PO (20:55)
[2023-02-03 08:30] VITALS: BP 110/58; PULSE 89; RESP 18; O2SAT 97
--- NOTE | 2023-02-03 15:02 | HO.PSYCHPN ---
Subjective Subjective Date of Service: 02/03/23 Reason For Visit: F29 unspecified psychosis Subjective Notes: Section 8 Interim History: Pt took medication last night without much resistance. Pt continues to carry brown bag with her belonging. She has been more visible. Less guarded but still no insight into mental illness and need for treatment. Pt slept through the night. We discussed discharge tomorrow. Medication Compliance: Yes Mental Status Exam Mental Status Exam Narrative: Appearance: casually groomed, good hygine, in NAD Behavior: less guarded Psychomotor: no agitation or retardation noted Speech: clear, normal rate/rhythm/volume, spontaneous TP: linear TC: less paranoid about returning back home. Mood: fine Affect: less guarded SI: none HI: none VH/AH: none Delusions: paranoid delusions of spirits in her apartment Insight/judgment: fair x 2. Memory/cog: alert, oriented x 3. grossly intact to conversational testing. Diagnostics Vital Signs (24Hr): Vital Signs - 24 hr 02/02/23 18:00 02/03/23 08:30 Temperature 96.9 F Pulse Rate 60 89 Respiratory Rate 18 18 Blood Pressure 103/55 L 110/58 L Pulse Oximetry 98 97 Oxygen Delivery Method Room Air Room Air BMI result Body Mass Index 21.0 Medications Medications Current Medications Acetaminophen (Acetaminophen 325 Mg Tablet) 650 mg PO Q6H PRN PRN Reason: Headache/Pain Mild Scale (1-3) Al Hydroxide/Mg Hydroxide (Magnesium Hydrox/Alum Hydrox 30 Ml Oral.Susp) 30 ml PO Q6H PRN PRN Reason: Heartburn/Nausea Apixaban (Apixaban 2.5 Mg Tablet) 2.5 mg PO BID [facility] OF [facility] Last Admin: 02/03/23 08:38 Dose: Not Given Benzocaine (Throat Lozenge, Medicated Lozenge) 1 lozenge MUCOUS MEM Q2H PRN PRN Reason: Sore Throat Lorazepam (Lorazepam 1 Mg Tablet) 1 mg PO BID PRN PRN Reason: Anxiety Last Admin: 02/02/23 20:55 Dose: 1 mg Magnesium Hydroxide (Milk Of Magnesia 30 Ml Oral.Susp) 30 ml PO DAILY PRN PRN Reason: Constipation Olanzapine (Olanzapine 7.5 Mg Tablet) 7.5 mg PO BEDTIME ON LICENSE OF [facility] Last Admin: 02/02/23 20:54 Dose: 7.5 mg Olanzapine (Olanzapine 10 Mg Vial) 7.5 mg IM DAILY PRN PRN Reason: if refuses PO; court order Polyethyl Glycol/Propylene Glycol (Propylene Glycol/Peg 400 Gel Eye Drops 10ml) 1 drop EYE-BOTH BID PRN PRN Reason: dry eyes Trazodone HCl (Trazodone Hcl 50 Mg Tablet) 50 mg PO BEDTIME PRN PRN Reason: Insomnia Allergies Allergies Allergy/AdvReac Type Severity Reaction Status Date / Time amoxicillin Allergy Unknown Verified 01/08/23 03:36 codeine Allergy Unknown Verified 01/08/23 03:36 diphenhydramine Allergy Unknown Verified 01/08/23 03:36 [From Benadryl] Assessment & Plan Assessment & Plan (1) Schizophrenia: Status: Acute Code(s): F20.9 - Schizophrenia, unspecified Plan 01/30- continue current tx. may increase olanzapine to 7.5mg po qhs. ideally pt should be on HIGUERA as she has no insight into need for tx. No aggression towards self or others. 01/31 increase olanzapine to 7.5mg po qhs. 02/01 continue tx. 02/02 continue tx. 02/03 continue tx. no aggression towards self or others. Reason for continued inpatient stay Substantial Risk for: stable for discharge Time Spent With Patient Time: Total time managing care of this patient today ____ minutes.
[2023-02-03 18:00] VITALS: BP 118/70; PULSE 72; RESP 18; O2SAT 98
[2023-02-03] MEDS: LORazepam 1 MG TABLET PO (20:25)
[2023-02-03] MEDS: OLANZapine 7.5 MG TABLET PO (20:25)
[2023-02-04 08:43] VITALS: BP 105/64; PULSE 94; RESP 20; O2SAT 98
--- NOTE | 2023-02-04 09:28 | P.DS_ITS ---
DS: Providers Provider Date of Service: 02/04/23 Date of admission: 01/07/23 23:58 Primary care physician: Unknown Physician DS: Diagnosis Discharge Diagnosis (1) Schizophrenia: Status: Acute DS: Medications Discharge Medications Home Medications: Home Medications Medication Instructions Recorded Confirmed lorazepam 0.5 mg tablet (Ativan) 0.5 mg PO BID PRN Anxiety 01/08/23 01/08/23 olanzapine 5 mg disintegrating 5 mg PO BID 01/08/23 01/08/23 tablet Mental Status Exam Mental Status Exam Narrative: Appearance: casually groomed, good hygine, in NAD Behavior: less guarded Psychomotor: no agitation or retardation noted Speech: clear, normal rate/rhythm/volume, spontaneous TP: linear TC: less paranoid about returning back home. Mood: fine Affect: less guarded SI: none HI: none VH/AH: none Delusions: paranoid delusions of spirits in her apartment Insight/judgment: fair x 2. Memory/cog: alert, oriented x 3. grossly intact to conversational testing. DS: Summary Hospital Course Hospital Course: HPI: Patient is a 67-year-old female with history of schizophrenia, history of PE who presents after her brother took patient to ED for worsening paranoid delusions and AVH in the face of increased psychosocial stressors including her father's recent . Patient was hospitalized 10 years ago and started on Risperdal and has been functioning well, living on her own in the community since then; she came off Risperdal about a year and a half ago and continued to remain stable.? However soon after her father , patient started becoming paranoid and developed AVH; told ED providers that the FBI was after her, complaining of demon attacks, demons from they apartment complex knocking on her windows and doors, coming into her home at night and flashing lights; patient ended up going to a hotel to stay because she was scared; says demons were demanding she leave her apartment and saying things like you bitch....? Going to rape you...? Be quiet... Patient reported to the ED that she woke up and her house and found her apartment in disarray with broken wine glasses and dishes so she called her brother who called 911.? Patient's brother reported to emergency room that the housing authority also called him as they were concerned about her behavior.? Patient feels that she is fine and wants to be discharged home.? She did not want to discuss the conversations that she had with ED provider or discuss her reports of AH or paranoid delusions.? Patient says she used to be on Risperdal as a mood stabilizer but that it caused tardive dyskinesia, that it made her feet move all around and caused her to grind her teeth.? She said she came off it about a year and a half ago and she has been fine since.? She says she lives alone in her own apartment; she has someone do her shopping but otherwise cooks for herself, drives herself to local appointments, manages her own finances.? Patient does not want medication.? Patient's sister called executive secretary social welfare and reported that she has been recently very dysregulated, talking about demons and that these are the same behaviors that resulted in her psychiatric admission 10 years ago, which resulted in 10 month stay at [facility] in [place] Since patient was currently presenting as organized, Instrument Tech discussed the possibility of discharge if patient were willing to get back on medication and consent to having team call her brother for collateral and a ride to a safe location; patient refused.? Later on, patient was irate that she was not being discharged saying that contract technical writer had told her she would be discharged today; she was unable to accurately recount the details of the earlier conversation and insisted that contract technical writer was lying. Past Psychiatric History: Psychiatric admission 10 years ago for similar presentation; paranoid;? 10 month stay at [facility] in [place]; well treated with Risperdal Risperdal side effect: TD, akathisia, bruxism Medical Evaluation Reviewed: Hospitalist Salvador Pending HOSPITAL COURSE On the unit, pt was admitted on a CV and signed a 3 day notice.Note that pt was initially under the care of Dr. Nile Louis, refer to his progress notes for further detail related to treatment he in the hospital. On the unit, pt presented with paranoid delusions of spirits or supernatural being invading her house as well present while on the unit. Give past hx of pt being homicidal and suicidal when decompesanted and refusing to accept treatment, team filed for involuntary treatment which was granted by the court. Pt initially was started on risperidone since this medication had been effective to her in the past. Pt reported restless leg syndrome and there was concern of movement disorder. Therefore, pt was switched to olanzapine. She initially complaint of feeling dizzy, however, she did not show signs of orthostatic HOTN. It did seem that pt was opposed to any medication as believe all of them are harmful. Olanzapine was titrated to 7.5mg po qhs. Her affect gradually presented as much less irritable, less guarded. She was more forthcoming in terms of theme and extend of delusional content. Initially pt had declined being discharged to her apartment due to fear that spirits were still there. As paranoid delusions decreased pt was amenable to returning to her apartment. There was no incidences of disruptive behaviors nor need for restraints throughout this admission. Pt was visible on the unit, not very social but fairly pleasant when approached by peers. She was sleeping and eating well. Her insight as to need for ongoing psychiatric medications and treatment is limited. Family can consider Rogerio's order in the community as she may stop antipsychotic fairly quickly. Prior to discharge, collateral information was gathered from her brother who denied any safety concerns and agreed with discharge. Pt denied suicidal or homicidal ideation. She also adamantly denied any intent or plan to harm herself or her family or anyone else. She was hoping in the community she could ask help from spiritual counselor. She was showering and attending to all her ADL. She agrees to continue to have sales and in home delivery specialist, who she trusts allows in her home daily. She also agreed to follow up with his PCP and psychologist but was more hesitant about following up with psychiatry. Status at Discharge Cognitive/behavioral status at discharge: Pt less irritable, less guarded. No SI/HI. Less paranoid but still some persistent delusions related to spirits and supernatural being watching. No signs of aggression towards self or others. Pt sleeping and eating well. Time Spent with Patient Time attestation: Total time managing care of this patient today ____ minutes. Discharge Plan Discharge Anticipated Discharge Date/Time: 02/04/23 09:28 Patient Disposition: Home, Self-Care Discharge Diagnosis: schizophrenia Referrals: Physician,Unknown J [Primary Care Provider] - 1 Week Discharge Medications: New olanzapine 7.5 mg Tablet 7.5 mg PO BEDTIME Qty: 90 0RF lorazepam 1 mg Tablet 1 mg PO BID PRN (Reason: Anxiety) Qty: 60 0RF Discontinued lorazepam [Ativan] 0.5 mg Tablet 0.5 mg PO BID PRN (Reason: Anxiety) olanzapine 5 mg Tablet,Disintegrating 5 mg PO BID Discharge Orders: Discharge Order (Routine); Ordered 02/04/23 Ordered By: Estelle Walters Diet: Regular diet Activity on Discharge: As tolerated Stand Alone Forms: Patient Portal Discharge page Care Plan Goals: 1. Maintain mood 2. No SI/HI 3. No aggression towards self or others Health Concerns: Follow up with PCP and grinding wheel facer to determine need to continue eliquis Plan of Treatment: 1. Take medications as prescribed 2. Go to nearest ED or call 911 in event of emergency Assessment: Pt less irritable, less guarded, less paranoid ideas but residual symptoms still presents. No signs of aggression towards self or others. No VH/AH. Pt sleeping through the night. Future oriented.
--- NOTE | 2023-02-04 10:44 | PC.NURSE ---
Pt. Alert and oriented. Denies anxiety or depression, SI/HI, or perceptual disturbances . Reports readiness for discharge home. Discharge instructions and medications reviewed with pt., who verbalized understanding. Pt. left unit 09:57 with brother accompanied by social work assistant. No releases signed to fax records to providers.
== END 2023-02-04 09:57 | disposition home or self-care (01) | DRG 885 ==
LOC: HO.PM5 01-27 13:18 → HO.PGERI 01-27 13:26
PROVIDERS: Admitting Provider Psychiatry & Neurology Psychiatry; Visit Provider Psychiatry & Neurology Psychiatry
DX: F20.9 Schizophrenia, unspecified (principal); Z91.148 Patient's other noncompliance with medication regimen for other reason; Z86.711 Personal history of pulmonary embolism; Z88.0 Allergy status to penicillin; Z79.899 Other long term (current) drug therapy

== ENCOUNTER → 2023-01-07 23:58 | Outpatient (BNV) | payer MEDICARE, MEDICAID, SELFPAY | PROVIDERS: Admitting Provider Psychiatry & Neurology Psychiatry; Visit Provider Psychiatry & Neurology Psychiatry | DX: F20.0 Paranoid schizophrenia (principal) | CPT/HCPCS: 90792; 99231; 99232; 99238 ==